=== PATIENT | male | born 1955 | race Caucasian/White ===

== ENCOUNTER 2017-03-27 11:26 | Emergency (ER) | payer BC ==
[2017-03-27 11:41] VITALS: RESP 18
[2017-03-27] MEDS ORDERED: ceFAZolin 1 gm in NS 1 GM/100 ML BAG IVPB STA (11:58)
[2017-03-27] MEDS ORDERED: Morphine 2 mg/ml ISec IVP STA (12:06)
--- NOTE | 2017-03-27 12:10 | ED PDOC ---
Arrival/HPI - General Chief Complaint: Abnormal Skin Integrity Time Seen by Provider: 03/27/17 11:57 Historian: Patient - History of Present Illness Narrative History of Present Illness (Text): 03/27/17 12:07 61-year-old male presents today with a laceration to the left second finger. Patient states while at home he was working with iron and a heavy piece of iron smash onto his left second finger causing a laceration and deformity to the left second finger. Patient states his tetanus was 4 years ago. He denies fevers or chills. States the incident occurred prior to arrival. He is complaining of pain in the left second finger. He is complaining of the inability to extend the finger. Patient states he sees bone. No medications have been taken for pain. No other complaints Time/Duration: Prior to Arrival Past Medical History - Provider Review Nursing Documentation Reviewed: Yes - Travel History Have you recently traveled outside [place] w/in the past 3 mons?: No - Tetanus Immunization Tetanus Immunization: Up to Date (4 yrs ago) - Cardiac Hx Hypertension: Yes - Psychiatric Hx Substance Use: No - Anesthesia Hx Anesthesia: No Hx Anesthesia Reactions: No Hx Malignant Hyperthermia: No Family/Social History - Physician Review Nursing Documentation Reviewed: Yes Family/Social History: Unknown Family HX Smoking Status: Never Smoked Hx Alcohol Use: Yes Frequency of alcohol use: Socially Hx Substance Use: No Allergies/Home Meds Allergies/Adverse Reactions: Allergies No Known Allergies Allergy (Verified 10/31/14 09:52) Home Medications: Home Meds Medication Instructions Recorded Confirmed Aspirin [Aspirin Chewable] 81 mg PO DAILY 03/01/16 03/27/17 Review of Systems - Review of Systems Constitutional: absent: Fatigue, Fevers Cardiovascular: absent: Chest Pain, Palpitations Gastrointestinal: absent: Abdominal Pain, Vomiting Musculoskeletal: Arthralgias Skin: Laceration Neurological: absent: Headache, Dizziness Physical Exam Vital Signs Reviewed: Yes Vital Signs Temp Pulse Resp BP Pulse Ox 03/27/17 11:27 97.9 F 66 18 122/78 97 Temperature: Afebrile Blood Pressure: Normal Pulse: Regular Respiratory Rate: Normal Appearance: Positive for: Well-Appearing, Non-Toxic, Comfortable Pain Distress: None Mental Status: Positive for: Alert and Oriented X 3 - Systems Exam Head: Present: Atraumatic Respiratory/Chest: Present: Clear to Auscultation Cardiovascular: Present: Regular Rate and Rhythm Upper Extremity: Present: NORMAL PULSES, Tenderness (left 2nd finger; there is a large gapping laceration with partial avulsion noted to the dorsal aspect of the finger at the proximal phalanx. the laceration extends to the PIP joint with complete exposure of the bone and joint. finger is in flexion at the PIP, unable to extend finger at the PIP. sensation and distal pulses intact. ), Swelling, Deformity. No: Normal ROM Neurological: Present: GCS=15 Skin: Present: Warm, Dry Psychiatric: Present: Alert, Oriented x 3 Medical Decision Making ED Course and Treatment: 03/27/17 12:12 61-year-old male with a laceration to the second finger on the left hand with extensor tendon injury Wound irrigated well with copious amounts of saline using high pressure irrigation Patient's tetanus is up-to-date. X-ray:FINDINGS: LEFT INDEX FINGER: Disruption and focal swelling consistent with laceration injury 2nd proximal interphalangeal joint -dorsal aspect. A 1.5 mm ossific like density in this focal soft tissue swelling suspect for tiny lacerated ossific chip fracture fragment. Probably originating near the radial side of this 2nd proximal interphalangeal joint. A radiopaque foreign body closely approximating bone density is in the differential. Metallic medial like foreign body dorsal 3rd digit soft tissues perhaps chronic given the current clinical history attention to the 2nd digit provided. No 3rd digit significant soft tissue swelling Osteoarthrosis-distal interphalangeal joints and 1st metacarpal phalangeal joint and 1st interphalangeal joint. JOINTS: Arthrosis. No dislocation SOFT TISSUES: Normal. OTHER FINDINGS: None. IMPRESSION: Extensive soft tissue laceration with tiny probable lacerated ossific chip fracture fragment origin probably radial 2nd proximal interphalangeal joint level -specific donor site difficult to determine. Foreign body similar to bony density in the differential here. No dislocation Third digit soft tissue foreign body -broken needle probable chronic appearing. Osteoarthrosis CBC wnl CMP k; 3.4 PT/PTT: wnl Type and screen 1 g of Ancef given IV Patient was seen and evaluated by Dr. Alexander case discussed with dr. Jasvir Lubin; he saw patient at bedside and repaired extension tendon injury. 03/27/17 15:17 pt to be discharged home with augmentin and percocet; pt to f/u with dr. lubin on saturday in the office. impression; finger laceration, fracture, finger, extensor tendon laceration, foreign body finger Percocet 1 tablet every 6 hours as needed for pain Augmentin 1 tablet twice daily 7 days Keep wound clean and dry Follow-up with Dr. Lubin in 2 days in the office Return immediately if signs of infection develop high fevers, increasing pain, increasing redness, increasing swelling, purulent discharge Return immediately if any other concerning symptoms develop - Lab Interpretations Lab Results: 03/27/17 12:18 03/27/17 12:18 Lab Results 03/27/17 13:20: Blood Type Confirm B NEGATIVE 03/27/17 12:27: Blood Type B NEGATIVE, Antibody Screen Negative, BBK History Checked No verified bt 03/27/17 12:18: WBC 3.5 L, RBC 4.41, Hgb 14.5, Hct 39.4 L, MCV 89.3, MCH 32.9, MCHC 36.8, RDW 13.0, Plt Count 182, MPV 10.2, Gran % 56.8, Lymph % (Auto) 34.4, [place] % (Auto) 7.4 H, Eos % (Auto) 1.1 L, Baso % (Auto) 0.3, Gran # 2.00, Lymph # 1.2, Arthur # 0.3, Eos # 0.0, Baso # 0.01 03/27/17 12:18: Sodium 142, Potassium 3.4 L, Chloride 102, Carbon Dioxide 28, Anion Gap 15, BUN 24 H, Creatinine 1.1, Est GFR ( Amer) > 60, Est GFR ( Non-Af Amer) > 60, Random Glucose 117 H, Calcium 9.5, Total Bilirubin 1.2, AST 71 H, ALT 79 H, Alkaline Phosphatase 65, Total Protein 8.1, Albumin 4.6, Globulin 3.5, Albumin/Globulin Ratio 1.3 03/27/17 12:18: PT 11.1, INR 1.03, APTT 25.9 - RAD Interpretation Radiology Orders: 03/27/17 11:57 HAND LEFT 2ND DIGIT (FINGER) [RAD] Stat - Medication Orders Current Medication Orders: Discontinued Medications Cefazolin Sodium (Ancef 1gm In Ns) 1 gm in 100 mls @ 100 mls/hr IVPB STAT STA PRN Reason: Protocol Stop: 03/27/17 12:57 Last Admin: 03/27/17 12:39 Dose: 100 mls/hr eMAR Start Stop Document 03/27/17 12:39 EQ (Rec: 03/27/17 12:39 EQ [id number]) Intravenous Solution Start Date 03/27/17 Start Time 12:39 Lidocaine HCl (Lidocaine 2% 20ml Vial) 0 ml IJ ONCE STA Stop: 03/27/17 14:56 Morphine Sulfate (Morphine) 2 mg IVP STAT STA Stop: 03/27/17 12:07 Last Admin: 03/27/17 12:38 Dose: 2 mg MAR Pain Assessment Document 03/27/17 12:38 EQ (Rec: 03/27/17 12:39 EQ [id number]) Pain Reassessment Is this a pain reassessment? No Sleep Is patient sleeping during reassessment? No Presence of Pain Presence of Pain Yes Pain Scale Used Pain Scale Used Numeric IVP Administration Document 03/27/17 12:38 EQ (Rec: 03/27/17 12:39 EQ [id number]) Charges for Administration # of IVP Administrations 1 Disposition/Present on Arrival - Present on Arrival Any Indicators Present on Arrival: No History of DVT/PE: No History of Uncontrolled Diabetes: No Urinary Catheter: No History of Decub. Ulcer: No History Surgical Site Infection Following: None - Disposition Have Diagnosis and Disposition been Completed?: Yes Diagnosis: Extensor tendon laceration, finger, open wound, Finger fracture, Foreign body finger Disposition: HOME/ ROUTINE Disposition Time: 15:46 Patient Plan: Discharge Patient Problems: Current Active Problems Problem Status Onset Extensor tendon laceration, finger, open wound Acute Finger fracture Acute Foreign body finger Acute Condition: GOOD Discharge Instructions (ExitCare): Finger Fracture (ED), Soft Tissue Foreign Body (ED), Finger Laceration (ED) Additional Instructions: Percocet 1 tablet every 6 hours as needed for pain Augmentin 1 tablet twice daily 7 days Keep wound clean and dry Follow-up with Dr. Lubin in 2 days in the office Return immediately if signs of infection develop high fevers, increasing pain, increasing redness, increasing swelling, purulent discharge Return immediately if any other concerning symptoms develop Prescriptions: Amoxicillin/Clavulanate [Augmentin 875 MG-125 MG] 1 tab PO BID #20 tab Ibuprofen [Motrin] 600 mg PO Q6H PRN #20 tab PRN Reason: pain/fever reduction oxyCODONE/Acetaminophen [Percocet 5/325 mg Tab] 1 tab PO Q6H PRN #10 tab PRN Reason: moderate to severe pain Referrals: Jasvir Lubin MD [Staff Provider] - Follow up with primary Forms: [employer] (Guyanese), WORK NOTE
[2017-03-27 12:24] LABS: BASO # 0.01 K/mm3 (0.0-2.0); BASO % 0.3 % (0.0-3.0); EOS % 1.1 % (1.5-5.0); GRAN % 56.8 % (50.0-68.0); HEMATOCRIT 39.4 % (42.0-52.0); LYMPH # 1.2 (1.2-3.4); LYMPH % 34.4 % (22.0-35.0); MEAN CELL VOLUME 89.3 fl (80.0-105.0); MEAN CORPUSCULAR HEMOGLOBIN 32.9 pg (25.0-35.0); MEAN CORPUSCULAR HGB CONC 36.8 g/dl (31.0-37.0); MEAN PLATELET VOLUME 10.2 fl (7.0-11.0); MONO # 0.3 (0.1-0.6); MONO % 7.4 % (1.0-6.0); WHITE BLOOD COUNT 3.5 10^3/ul (4.5-11.0)
[2017-03-27 12:38] LABS: ALB/GLOB RATIO 1.3 (1.1-1.8); ALKALINE PHOSPHATASE 65 U/L (38-126); ALT/SGPT 79 U/L (7-56); AST/SGOT 71 U/L (17-59); BILIRUBIN,TOTAL 1.2 mg/dL (0.2-1.3); BLOOD UREA NITROGEN 24 mg/dL (7-21); CALCIUM 9.5 mg/dL (8.4-10.5); CARBON DIOXIDE 28 mmol/L (21-33); CHLORIDE 102 mmol/L (95-110); GFR AFRICAN-AMERICAN > 60; GLUCOSE,RANDOM 117 mg/dL (70-110); POTASSIUM 3.4 mmol/L (3.6-5.0); SODIUM 142 mmol/L (132-148); TOTAL PROTEIN 8.1 g/dL (5.8-8.3)
[2017-03-27 12:39] LABS: INR 1.03 (0.93-1.08); PARTIAL THROMBOPLASTIN TIME 25.9 Seconds (23.7-30.8)
--- NOTE | 2017-03-27 13:04 | RAD ---
PROCEDURE: Left Index finger radiographs. HISTORY: laceration/2nd finger, laceration/crush injury COMPARISON: None. TECHNIQUE: AP radiograph of the left hand, as well as spot oblique and lateral images of index finger were obtained. FINDINGS: LEFT INDEX FINGER: Disruption and focal swelling consistent with laceration injury 2nd proximal interphalangeal joint -dorsal aspect. A 1.5 mm ossific like density in this focal soft tissue swelling suspect for tiny lacerated ossific chip fracture fragment. Probably originating near the radial side of this 2nd proximal interphalangeal joint. A radiopaque foreign body closely approximating bone density is in the differential. Metallic medial like foreign body dorsal 3rd digit soft tissues perhaps chronic given the current clinical history attention to the 2nd digit provided. No 3rd digit significant soft tissue swelling Osteoarthrosis-distal interphalangeal joints and 1st metacarpal phalangeal joint and 1st interphalangeal joint. JOINTS: Arthrosis. No dislocation SOFT TISSUES: Normal. OTHER FINDINGS: None. IMPRESSION: Extensive soft tissue laceration with tiny probable lacerated ossific chip fracture fragment origin probably radial 2nd proximal interphalangeal joint level -specific donor site difficult to determine. Foreign body similar to bony density in the differential here. No dislocation Third digit soft tissue foreign body -broken needle probable chronic appearing. Osteoarthrosis
[2017-03-27] MEDS ORDERED: Lidocaine 1%/Epinephrine 1:100000 30 ml vial IJ ONE (14:35)
[2017-03-27] MEDS ORDERED: Lidocaine 2% Inj (20ml) IJ STA ×4 (14:39→14:55)
[2017-03-27 16:08] VITALS: BP 130/72; PULSE 68; TEMP 97.8; O2SAT 98
== END 2017-03-27 16:08 | disposition home or self-care (01) ==
LOC: ED 11:26
DX: S66.321A Laceration of extensor muscle, fascia and tendon of left index finger at wrist and hand level, initial encounter (principal); S62.611A Displaced fracture of proximal phalanx of left index finger, initial encounter for closed fracture; W22.8XXA Striking against or struck by other objects, initial encounter; Y93.89 Activity, other specified; Y92.008 Other place in unspecified non-institutional (private) residence as the place of occurrence of the external cause; M79.5 Residual foreign body in soft tissue
CPT/HCPCS: 73140; 80053; 85025; 85610; 85730; 86850; 86900; 96374; 99283; J0690; J2270

== ENCOUNTER 2017-09-13 18:05 | Inpatient (IN) | payer BC ==
[2017-09-13 18:20] VITALS: BMI 36.6
[2017-09-13 18:34] LABS: BASO # 0.02 K/mm3 (0.0-2.0); BASO % 0.3 % (0.0-3.0); EOS # 0.1 (0.0-0.7); GRAN # 3.13 (1.4-6.5); GRAN % 42.5 % (50.0-68.0); LYMPH # 3.7 (1.2-3.4); LYMPH % 50.1 % (22.0-35.0); MEAN CORPUSCULAR HEMOGLOBIN 33.3 pg (25.0-35.0); MEAN CORPUSCULAR HGB CONC 36.6 g/dl (31.0-37.0); MEAN PLATELET VOLUME 10.5 fl (7.0-11.0); MONO # 0.5 (0.1-0.6); MONO % 6.1 % (1.0-6.0); RBC 4.8 10^6/uL (3.5-6.1); RED CELL DISTRIBUTION WIDTH 13.2 % (11.5-14.5); WHITE BLOOD COUNT 7.4 10^3/ul (4.5-11.0)
[2017-09-13 18:46] LABS: INR 1.05 (0.93-1.08); PARTIAL THROMBOPLASTIN TIME 30.9 Seconds (25.1-36.5)
[2017-09-13 18:47] LABS: ALB/GLOB RATIO 1.4 (1.1-1.8); ALBUMIN 4.5 g/dL (3.0-4.8); ALT/SGPT 64 U/L (7-56); AST/SGOT 55 U/L (17-59); BLOOD UREA NITROGEN 17 mg/dL (7-21); CALCIUM 9.6 mg/dL (8.4-10.5); GFR AFRICAN-AMERICAN > 60; GFR NON-AFRICAN AMERICAN > 60
[2017-09-13 18:59] LABS: B-TYPE NATRIURETIC PEPTIDE 107 pg/mL (0-450); TROPONIN I < 0.01 ng/mL
[2017-09-13] MEDS ORDERED: Morphine 2 mg/ml ISec IVP STA (19:15)
[2017-09-13] MEDS ORDERED: Alum-Mag Hydrox-Simethicone Susp (30 mL) PO STA (19:17)
[2017-09-13] MEDS ORDERED: Atrop/Hyosc/Scopal/PB Elixir (120 ml) PO STA (19:17)
[2017-09-13 19:20] LABS: CK-MB 4.4 ng/mL (0.0-3.6)
[2017-09-13] MEDS ORDERED: Iohexol 350 MG/100 ML VIAL ONE (19:21)
--- NOTE | 2017-09-13 20:44 | ED PDOC ---
Arrival/HPI - General Chief Complaint: Abdominal Pain Time Seen by Provider: 09/13/17 18:10 Historian: Patient, Family - History of Present Illness Narrative History of Present Illness (Text): 09/13/17 18:05 A 62 year old male, whose past medical history includes hypertension, presents to the emergency department complaining of epigastric/chest pain. Patient reports he began experiencing symptoms after aruging with . States being in normal states of health prior to arguing. Patient denies any fever, cough, or any other complaints at this time. Also, it is unknown of any past cardiac workup. No PMD Past Medical History - Provider Review Nursing Documentation Reviewed: Yes - Tetanus Immunization Tetanus Immunization: Up to Date (4 yrs ago) - Cardiac Hx Hypertension: Yes - Pulmonary Hx Respiratory Disorders: No - Neurological Hx Neurological Disorder: No - HEENT Hx HEENT Disorder: No - Renal Hx Renal Disorder: No - Endocrine/Metabolic Hx Endocrine Disorders: No - Hematological/Oncological Hx Blood Disorders: No - Integumentary Hx Dermatological Disorder: No - Musculoskeletal/Rheumatological Hx Musculoskeletal Disorders: No - Gastrointestinal Hx Gastrointestinal Disorders: No - Genitourinary/Gynecological Hx Genitourinary Disorders: No - Psychiatric Hx Psychophysiologic Disorder: No Hx Substance Use: No - Anesthesia Hx Anesthesia: No Hx Anesthesia Reactions: No Hx Malignant Hyperthermia: No Family/Social History - Physician Review Nursing Documentation Reviewed: Yes Family/Social History: No Known Family HX Smoking Status: Never Smoked Hx Alcohol Use: Yes Hx Substance Use: No Allergies/Home Meds Allergies/Adverse Reactions: Allergies No Known Allergies Allergy (Verified 09/13/17 18:08) Home Medications: Home Meds Medication Instructions Recorded Confirmed Aspirin [Aspirin Chewable] 81 mg PO DAILY 03/01/16 09/13/17 Metoprolol Succinate [Toprol XL] 0 mg PO DAILY 09/13/17 09/13/17 Review of Systems - Physician Review All systems were reviewed & negative as marked: Yes - Review of Systems Constitutional: absent: Fevers Respiratory: absent: Cough Cardiovascular: Chest Pain Gastrointestinal: Abdominal Pain (epigastric) Physical Exam Vital Signs Reviewed: Yes Vital Signs Temp Pulse Resp BP Pulse Ox 09/13/17 22:23 71 186/108 H 09/13/17 22:11 81 20 182/107 H 95 09/13/17 21:56 72 187/102 H 09/13/17 21:55 70 18 176/111 H 95 09/13/17 21:37 72 20 191/105 H 97 09/13/17 21:28 71 213/115 H 09/13/17 21:22 63 20 211/110 H 99 09/13/17 21:13 74 211/11 H 09/13/17 21:05 56 L 20 204/105 H 98 09/13/17 18:45 73 20 136/73 09/13/17 18:33 74 19 166/97 H 93 L 09/13/17 18:05 98.3 F 66 18 193/99 H 95 Temperature: Afebrile Blood Pressure: Hypertensive Pulse: Regular Respiratory Rate: Normal Appearance: Positive for: Well-Appearing Pain Distress: None Mental Status: Positive for: Alert and Oriented X 3 - Systems Exam Head: Present: Atraumatic, Normocephalic Pupils: Present: PERRL Extroacular Muscles: Present: EOMI Conjunctiva: Present: Normal Mouth: Present: Moist Mucous Membranes Neck: Present: Normal Range of Motion Respiratory/Chest: Present: Clear to Auscultation, Good Air Exchange. No: Respiratory Distress, Accessory Muscle Use Cardiovascular: Present: Regular Rate and Rhythm, Normal S1, S2. No: Murmurs Abdomen: Present: Normal Bowel Sounds. No: Tenderness, Distention, Peritoneal Signs Back: Present: Normal Inspection Upper Extremity: Present: Normal Inspection. No: Cyanosis, Edema Lower Extremity: Present: Normal Inspection. No: Edema Neurological: Present: GCS=15, CN II-XII Intact, Speech Normal Skin: Present: Warm, Dry, Normal Color. No: Rashes Psychiatric: Present: Alert, Oriented x 3, Normal Insight, Normal Concentration Medical Decision Making ED Course and Treatment: 09/13/17 18:10 Impression: 62 year old male with epigastric/chest pain. Physical exam is unremarkable. Plan: -- EKG -- Chest X-ray -- Angio Disection CT -- Aspirin -- Morphine -- Nitroglycerin -- Elixir -- Maalox -- Urinalysis -- Reassess and disposition Progress Notes: EKG: Ordered, reviewed, and independently interpreted the EKG. Rate : 70 BPM Rhythm : NSR Interpretation : 1st degree AV Block, LVH, and T-wave inversions, PVCs. Comparison : No previous EKG for comparison. 09/13/2017 20:[address] IMPRESSION: 1. 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 It appears to extend into the right common and external iliac arteries and appears to terminate near the right superior femoral artery origin. 2. 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 This infarction involves approximately 20% of the right kidney Dictator: Den Granda MD 09/13/17 21:[address] results, ICU was called. Blood pressure medications ordered intravenously. Dr. Hicks currently at bedside and will accept patient to unit. Case discussed with Dr. Harding, whom will admit patient under her service in ICU. - Critical Care Critical Care Minutes: 45 minutes - Lab Interpretations Lab Results: 09/13/17 18:10 09/13/17 18:10 Lab Results 09/13/17 21:14: Blood Type Pending, Antibody Screen Pending, BBK History Checked Patient has bt 09/13/17 18:10: Alcohol, Quantitative 77 H 09/13/17 18:10: Lipase 112 09/13/17 18:10: PT 12.0, INR 1.05, APTT 30.9 09/13/17 18:10: Sodium 144, Potassium 3.4 L, Chloride 104, Carbon Dioxide 24, Anion Gap 19, BUN 17, Creatinine 1.2, Est GFR ( Amer) > 60, Est GFR (Non- Af Amer) > 60, Random Glucose 107, Calcium 9.6, Magnesium 2.1, Total Bilirubin 0.6, AST 55, ALT 64 H, Alkaline Phosphatase 99, Lactate Dehydrogenase 828 H, Total Creatine Kinase 346 H, CK-MB (CK-2) 4.4 H, CK-MB (CK-2) % Cancelled, Troponin I < 0.01, NT-Pro-B Natriuret Pep 107, Total Protein 7.7, Albumin 4.5, Globulin 3.2, Albumin/Globulin Ratio 1.4 09/13/17 18:10: WBC 7.4 D, RBC 4.80, Hgb 16.0, Hct 43.7, MCV 91.0, MCH 33.3, MCHC 36.6, RDW 13.2, Plt Count 171, MPV 10.5, Gran % 42.5 L, Lymph % (Auto) 50.1 H, [place] % (Auto) 6.1 H, Eos % (Auto) 1.0 L, Baso % (Auto) 0.3, Gran # 3.13 , Lymph # (Auto) 3.7 H, [place] # (Auto) 0.5, Eos # (Auto) 0.1, Baso # (Auto) 0.02 I have reviewed the lab results: Yes - RAD Interpretation Radiology Orders: 09/13/17 18:10 CHEST PORTABLE [RAD] Stat 09/13/17 19:16 ANGIOGRAPHY DISECTION PROTOCOL [CT] Stat - Medication Orders Current Medication Orders: Hydromorphone HCl (Dilaudid) 2 mg IVP Q3H PRN PRN Reason: Pain, moderate (4-7) Sodium Nitroprusside 50 mg/ (Dextrose) 252 mls @ 15.08 mls/hr IV .[id number] PRN; Protocol; 0.5 MCG/KG/MIN PRN Reason: TITRATE PER MD ORDER Last Admin: 09/13/17 22:23 Dose: 15.08 mls/hr eMAR Start Stop Document 09/13/17 22:23 SS (Rec: 09/13/17 22:24 SS [id number]) Intravenous Solution Start Date 09/13/17 Start Time 22:24 MAR Pulse and Blood Pressure Document 09/13/17 22:23 SS (Rec: 09/13/17 22:24 SS [id number]) Pulse Pulse Rate (60-90) 71 Blood Pressure Blood Pressure (100/60-150/90) 186/108 Esmolol HCl (Brevibloc) 250 mls @ 29.937 mls/hr IV .[id number] RICKY; 50 MCG/KG/MIN PRN Reason: Protocol Last Admin: 09/13/17 21:56 Dose: 29.937 mls/hr eMAR Start Stop Document 09/13/17 21:56 SS (Rec: 09/13/17 21:58 SS [id number]) Intravenous Solution Start Date 09/13/17 Start Time 21:56 MAR Pulse and Blood Pressure Document 09/13/17 21:56 SS (Rec: 09/13/17 21:58 SS [id number]) Pulse Pulse Rate (60-90) 72 Blood Pressure Blood Pressure (100/60-150/90) 187/102 Pantoprazole Sodium (Protonix Inj) 40 mg IVP DAILY RICKY Discontinued Medications Al Hydrox/Mg Hydrox/Simethicone (Maalox Plus 30 Ml) 30 ml PO STAT STA Stop: 09/13/17 19:18 Last Admin: 09/13/17 19:52 Dose: 30 ml Aspirin (Aspirin) 325 mg PO STAT STA Stop: 09/13/17 18:23 Last Admin: 09/13/17 18:28 Dose: 325 mg Belladonna/Phenobarbital ( Elixir) 5 ml PO STAT STA Stop: 09/13/17 19:18 Last Admin: 09/13/17 19:52 Dose: 5 ml Hydromorphone HCl (Dilaudid) 2 mg IVP STAT STA Stop: 09/13/17 21:25 Last Admin: 09/13/17 21:28 Dose: 2 mg MAR Pain Assessment Document 09/13/17 21:28 SS (Rec: 09/13/17 21:30 SS [id number]) Pain Reassessment Is this a pain reassessment? Yes Sleep Is patient sleeping during reassessment? No Presence of Pain Presence of Pain Yes Pain Scale Used Pain Scale Used Numeric Location Left, Right or Bilateral Right Pain Location Body Site Abdomen Description Description Constant Intensity of Pain at present 10 IVP Administration Document 09/13/17 21:28 SS (Rec: 09/13/17 21:30 SS [id number]) Charges for Administration # of IVP Administrations 1 Labetalol HCl (Trandate) 20 mg IV STAT STA Stop: 09/13/17 21:14 Last Admin: 09/13/17 21:13 Dose: 20 mg eMAR Start Stop Document 09/13/17 21:13 SS (Rec: 09/13/17 21:31 SS [id number]) Intravenous Solution Start Date 09/13/17 Start Time 21:13 End Date 09/13/17 End time 21:15 Total Infusion Time 2 MAR Pulse and Blood Pressure Document 09/13/17 21:13 SS (Rec: 09/13/17 21:31 SS [id number]) Pulse Pulse Rate (60-90) 74 Blood Pressure Blood Pressure (100/60-150/90) 211/11 Labetalol HCl (Trandate) 20 mg IV STAT STA Stop: 09/13/17 21:17 Last Admin: 09/13/17 21:28 Dose: 20 mg eMAR Start Stop Document 09/13/17 21:28 SS (Rec: 09/13/17 21:32 SS [id number]) Intravenous Solution Start Date 09/13/17 Start Time 21:28 End Date 09/13/17 End time 21:30 Total Infusion Time 2 MAR Pulse and Blood Pressure Document 09/13/17 21:28 SS (Rec: 09/13/17 21:32 SS [id number]) Pulse Pulse Rate (60-90) 71 Blood Pressure Blood Pressure (100/60-150/90) 213/115 Morphine Sulfate (Morphine) 2 mg IVP STAT STA Stop: 09/13/17 19:16 Last Admin: 09/13/17 19:27 Dose: 2 mg MAR Pain Assessment Document 09/13/17 19:27 SS (Rec: 09/13/17 19:29 SS [id number]) Pain Reassessment Is this a pain reassessment? Yes Sleep Is patient sleeping during reassessment? No Presence of Pain Presence of Pain Yes Pain Scale Used Pain Scale Used Numeric Location Pain Location Body Site Chest Description Description Constant Intensity of Pain at present 10 Pain Behavior Moaning Crying Irritability Rubbing Site Restlessness Facial Grimacing Screaming Thrashing IVP Administration Document 09/13/17 19:27 SS (Rec: 09/13/17 19:29 SS [id number]) Charges for Administration # of IVP Administrations 1 Morphine Sulfate (Morphine) 4 mg IVP STAT STA Stop: 09/13/17 21:09 Last Admin: 09/13/17 21:08 Dose: 4 mg MAR Pain Assessment Document 09/13/17 21:08 SS (Rec: 09/13/17 21:34 SS [id number]) Pain Reassessment Is this a pain reassessment? Yes Sleep Is patient sleeping during reassessment? No Presence of Pain Presence of Pain Yes Pain Scale Used Pain Scale Used Numeric Location Left, Right or Bilateral Right Pain Location Body Site Abdomen Description Description Constant Intensity of Pain at present 10 IVP Administration Document 09/13/17 21:08 SS (Rec: 09/13/17 21:34 SS [id number]) Charges for Administration # of IVP Administrations 1 Nitroglycerin (Nitrostat Sl Tab) 0.3 mg SL STAT STA Stop: 09/13/17 18:23 Last Admin: 09/13/17 18:28 Dose: 0.3 mg - Scribe Statement The provider has reviewed the documentation as recorded by the Philip Flores Provider Philip Attestation: All medical record entries made by the Philip were at my direction and personally dictated by me. I have reviewed the chart and agree that the record accurately reflects my personal performance of the history, physical exam, medical decision making, and the department course for this patient. I have also personally directed, reviewed, and agree with the discharge instructions and disposition. Disposition/Present on Arrival - Present on Arrival Any Indicators Present on Arrival: No History of DVT/PE: No History of Uncontrolled Diabetes: No Urinary Catheter: No History of Decub. Ulcer: No History Surgical Site Infection Following: None - Disposition Have Diagnosis and Disposition been Completed?: Yes Diagnosis: Aortic dissection Disposition Time: 21:20 Condition: GUARDED
[2017-09-13] MEDS ORDERED: Labetalol 5 mg/ml Inj 20ML ONE (21:06)
[2017-09-13] MEDS ORDERED: Morphine 4 mg/ml ISec IVP STA (21:08)
[2017-09-13] MEDS ORDERED: Morphine 4 mg/ml ISec ONE (21:08)
[2017-09-13] MEDS ORDERED: Labetalol 5 mg/ml Inj 20ML IV STA ×2 (21:13→21:16)
[2017-09-13] MEDS ORDERED: Labetalol 500 MG in Sodium Chloride 0.9% 400 ML IV PRN (21:13)
[2017-09-13] MEDS ORDERED: HYDROmorphone 2 mg/ml ISec IVP STA (21:24)
[2017-09-13] MEDS ORDERED: Esmolol Hcl 2500mg/250ml NAC 250 ML IV SCH (21:45)
--- NOTE | 2017-09-13 21:45 | CP.PCM.CON ---
<Bev Bocanegra - Last Filed: 09/13/17 23:24> History of Present Illness - History of Present Illness History of Present Illness: CC: chest pain HPI: 62M PMHx HTN and nephrolithiasis presents to ED complaining of chest pain that started at 6:00pm the evening of admission. Patient was eating and arguing with his when his chest pain began. He described it as a sharp/stabbing pain, 10/10 in intensity, starting in his epigastric region radiating to his back. Patient also experienced dyspnea at rest but denied any headaches, pain radiating up his jaw, and pain radiating in his arms. Patient had never experienced this pain before. He did not take anything to alleviate the pain and could not identify any exacerbating factors. Patient reported he is compliant with all his medications but could not recall if he took his beta kendal the day of admission. On arriving to the ED patient complained of nausea and had 1 episode of nonbloody nonbilious emesis. On complete ROS patient denied fever, chills, dizziness, blurry vision, palpitations, cough, bowel/bladder complaints, pain/swelling in his legs bilaterally. Denied any recent changes in medication, recent travel, and sick contacts. PMHx: HTN and nephrolithiasis PSurgHx: denies Meds: pls see chart ALL: NKDA SocHx: denies Tobacco and recreational drug use. Drinks EtOH socially. 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 FamHx: mother, father, and siblings with heart problems and history of [place] [ patient unable to specify] PMD: doesn't know name- last saw PMD 1 month ago for general check up Review of Systems - Review of Systems All systems: reviewed and no additional remarkable complaints except - Constitutional Constitutional: As Per HPI. absent: Chills, Fever - EENT Eyes: As Per HPI. absent: Blurred Vision Ears: As Per HPI. absent: Dizziness Nose/Mouth/Throat: As Per HPI. absent: Sore Throat - Cardiovascular Cardiovascular: As Per HPI, Chest Pain, Dyspnea. absent: Edema, Lightheadedness , Palpitations, Pedal Edema - Respiratory Respiratory: As Per HPI, Dyspnea. absent: Cough, Wheezing - Gastrointestinal Gastrointestinal: As Per HPI, Abdominal Pain, Nausea, Vomiting (x 1 nonbloody nonbilious). absent: Constipation, Diarrhea - Genitourinary Genitourinary: As Per HPI. absent: Dysuria, Hematuria, Pyuria - Musculoskeletal Musculoskeletal: As Per HPI, Back Pain. absent: Numbness, Tingling - Integumentary Integumentary: As Per HPI. absent: Dry Skin - Neurological Neurological: As Per HPI. absent: Dizziness, Numbness, Headaches, Tingling - Psychiatric Psychiatric: As Per HPI. absent: Anxiety - Endocrine Endocrine: As Per HPI. absent: Polydipsia, Polyphagia - Hematologic/Lymphatic Hematologic: As Per HPI. absent: Easy Bleeding, Easy Bruising, Lymphadenopathy Past Patient History - Tetanus Immunizations Tetanus Immunization: Up to Date (4 yrs ago) - Past Social History Smoking Status: Never Smoked - CARDIAC Hx Hypertension: Yes - PULMONARY Hx Respiratory Disorders: No - NEUROLOGICAL Hx Neurological Disorder: No - HEENT Hx HEENT Problems: No - RENAL Hx Chronic Kidney Disease: No - ENDOCRINE/METABOLIC Hx Endocrine Disorders: No - HEMATOLOGICAL/ONCOLOGICAL Hx Blood Disorders: No - INTEGUMENTARY Hx Dermatological Problems: No - MUSCULOSKELETAL/RHEUMATOLOGICAL Hx Musculoskeletal Disorders: No - GASTROINTESTINAL Hx Gastrointestinal Disorders: No - GENITOURINARY/GYNECOLOGICAL Hx Genitourinary Disorders: No - PSYCHIATRIC Hx Psychophysiologic Disorder: No Hx Substance Use: No - SURGICAL HISTORY Hx Surgeries: No - ANESTHESIA Hx Anesthesia: No Hx Anesthesia Reactions: No Hx Malignant Hyperthermia: No Meds Allergies/Adverse Reactions: Allergies Allergy/AdvReac Type Severity Reaction Status Date / Time No Known Allergies Allergy Verified 09/13/17 18:08 - Medications Medications: Current Medications Hydromorphone HCl (Dilaudid) 2 mg IVP Q3H PRN PRN Reason: Pain, moderate (4-7) Sodium Nitroprusside 50 mg/ (Dextrose) 252 mls @ 15.08 mls/hr IV .[id number] PRN; Protocol; 0.5 MCG/KG/MIN PRN Reason: TITRATE PER MD ORDER Esmolol HCl (Brevibloc) 250 mls @ 29.937 mls/hr IV .[id number] RICKY; 50 MCG/KG/MIN PRN Reason: Protocol Pantoprazole Sodium (Protonix Inj) 40 mg IVP DAILY RICKY Physical Exam - Constitutional Appears: In Acute Distress - Head Exam Head Exam: ATRAUMATIC, NORMAL INSPECTION, NORMOCEPHALIC - Eye Exam Eye Exam: EOMI, Normal appearance, PERRL. absent: Conjunctival injection, Scleral icterus Pupil Exam: NORMAL ACCOMODATION, PERRL - ENT Exam ENT Exam: Mucous Membranes Moist - Neck Exam Neck exam: Positive for: Full Rom, Normal Inspection. Negative for: Lymphadenopathy - Respiratory Exam Respiratory Exam: Clear to Auscultation Bilateral, NORMAL BREATHING PATTERN. absent: Accessory Muscle Use, Rales, Rhonchi, Wheezes, Respiratory Distress - Cardiovascular Exam Cardiovascular Exam: Bradycardia, REGULAR RHYTHM, +S1, +S2 - GI/Abdominal Exam GI & Abdominal Exam: Hyperactive Bowel Sounds, Soft. absent: Firm, Guarding, Pulsatile Mass, Rebound, Rigid, Tenderness - Rectal Exam Rectal Exam: Deferred - Extremities Exam Extremities exam: Positive for: normal capillary refill, normal inspection, pedal pulses present. Negative for: pedal edema, tenderness - Back Exam Back exam: NORMAL INSPECTION. absent: rash noted - Neurological Exam Neurological exam: Alert, CN II-XII Intact, Oriented x3 - Psychiatric Exam Psychiatric exam: Normal Affect, Normal Mood - Skin Skin Exam: Dry, Intact, Normal Color, Warm Results - Vital Signs Recent Vital Signs: Last Vital Signs Temp 98.3 F 09/13/17 18:05 Pulse 72 09/13/17 21:37 Resp 20 09/13/17 21:37 BP 191/105 H 09/13/17 21:37 Pulse Ox 97 09/13/17 21:37 - Labs Result Diagrams: 09/13/17 18:10 09/13/17 18:10 Labs: Laboratory Results - last 24 hr 09/13/17 09/13/17 09/13/17 18:10 18:10 18:10 WBC 7.4 D RBC 4.80 Hgb 16.0 Hct 43.7 MCV 91.0 MCH 33.3 MCHC 36.6 RDW 13.2 Plt Count 171 MPV 10.5 Gran % 42.5 L Lymph % (Auto) 50.1 H Mills % (Auto) 6.1 H Eos % (Auto) 1.0 L Baso % (Auto) 0.3 Gran # 3.13 Lymph # (Auto) 3.7 H [place] # (Auto) 0.5 Eos # (Auto) 0.1 Baso # (Auto) 0.02 PT 12.0 INR 1.05 APTT 30.9 Sodium 144 Potassium 3.4 L Chloride 104 Carbon Dioxide 24 Anion Gap 19 BUN 17 Creatinine 1.2 Est GFR ( Amer) > 60 Est GFR (Non-Af Amer) > 60 Random Glucose 107 Calcium 9.6 Magnesium 2.1 Total Bilirubin 0.6 AST 55 ALT 64 H Alkaline Phosphatase 99 Lactate Dehydrogenase 828 H Total Creatine Kinase 346 H CK-MB (CK-2) 4.4 H CK-MB (CK-2) % Cancelled Troponin I < 0.01 NT-Pro-B Natriuret Pep 107 Total Protein 7.7 Albumin 4.5 Globulin 3.2 Albumin/Globulin Ratio 1.4 Lipase Alcohol, Quantitative 09/13/17 09/13/17 18:10 18:10 WBC RBC Hgb Hct MCV MCH MCHC RDW Plt Count MPV Gran % Lymph % (Auto) [place] % (Auto) Eos % (Auto) Baso % (Auto) Gran # Lymph # (Auto) [place] # (Auto) Eos # (Auto) Baso # (Auto) PT INR APTT Sodium Potassium Chloride Carbon Dioxide Anion Gap BUN Creatinine Est GFR ( Amer) Est GFR (Non-Af Amer) Random Glucose Calcium Magnesium Total Bilirubin AST ALT Alkaline Phosphatase Lactate Dehydrogenase Total Creatine Kinase CK-MB (CK-2) CK-MB (CK-2) % Troponin I NT-Pro-B Natriuret Pep Total Protein Albumin Globulin Albumin/Globulin Ratio Lipase 112 Alcohol, Quantitative 77 H Assessment & Plan - Assessment and Plan (Free Text) Assessment: 62M PMHx HTN and nephrolithiasis presents to ED complaining of chest pain that started at 6:00pm the evening of admission. STAT CTA chest in the ED showed [place] type B aortic dissection. Patient transferred to MICU for further monitoring. 1) Aortic Dissection [place]okes[place] type B 2) HTN emergency Plan: - Patient started on nitroprusside gtt and esmolol gtt for BP control. - Strict BP control. Maintain SBP 100-120mmHg and HR 60-80bpm - Pain management with Dilaudid 2mg ivp q3 prn - troponin negative x 1 f/u trop x 2 - f/u Echo - f/u AM labs including CBC, CMP, Mg, Phos, Lipid panel, HgbA1c, Thyroid studies - Accucheck q6h - NPO - Insert melendez and monitor strict Is and Os - HoB above 30 degrees - Vital signs [id number] - Cardiology consult: Dr. Millan - Vascular surgery consult: Dr. Ruiz - GI ppx: Protonix 40mg ivp qd - VTE ppx: SCDs Discussed with Dr. Fabiola Bocanegra PGY2 <Fabiola MOHAN,Justino - Last Filed: 09/14/17 06:15> Meds - Medications Medications: Current Medications Hydromorphone HCl (Dilaudid) 2 mg IVP Q3H PRN PRN Reason: Pain, moderate (4-7) Last Admin: 09/14/17 03:42 Dose: 2 mg Labetalol HCl 500 mg/ Sodium (Chloride) 500 mls @ 30 mls/hr IV .[id number] PRN; Protocol; 0.5 MG/MIN PRN Reason: TITRATE PER MD ORDER Last Admin: 09/14/17 04:02 Dose: 0.5 mg/min, 30 mls/hr Ondansetron HCl (Zofran Inj) 4 mg IVP Q6H PRN PRN Reason: Nausea/Vomiting Last Admin: 09/14/17 03:45 Dose: 4 mg Pantoprazole Sodium (Protonix Inj) 40 mg IVP DAILY RICKY Results - Vital Signs Recent Vital Signs: Last Vital Signs Temp 98.7 F 09/13/17 23:16 Pulse 71 09/14/17 04:00 Resp 14 09/14/17 04:00 BP 185/89 H 09/14/17 03:45 Pulse Ox 99 09/14/17 01:00 - Labs Result Diagrams: 09/14/17 05:15 09/13/17 18:10 Labs: Laboratory Results - last 24 hr 09/13/17 09/13/17 09/13/17 22:01 22:02 22:27 WBC RBC Hgb Hct MCV MCH MCHC RDW Plt Count MPV Gran % Lymph % (Auto) Mills % (Auto) Eos % (Auto) Baso % (Auto) Gran # Lymph # (Auto) [place] # (Auto) Eos # (Auto) Baso # (Auto) Lactic Acid 2.0 Troponin I Urine Color Yellow Urine Appearance Clear Urine pH 7.0 Ur Specific [place] 1.020 Urine Protein >=300 H Urine Glucose (UA) Negative Urine Ketones Negative Urine Blood Small H Urine Nitrate Negative Urine Bilirubin Negative Urine Urobilinogen 0.2 Ur Leukocyte Esterase Negative Urine RBC 2 - 5 Urine WBC 0 - 2 Ur Epithelial Cells 0 - 2 Urine Bacteria Few Urine Opiates Screen Positive H Urine Methadone Screen Negative Ur Barbiturates Screen Negative Ur Phencyclidine Scrn Negative Ur Amphetamines Screen Negative U Benzodiazepines Scrn Negative U Oth Cocaine Metabols Negative U Cannabinoids Screen Negative 09/14/17 09/14/17 00:30 05:15 WBC 7.2 RBC 4.40 Hgb 14.2 Hct 40.4 L MCV 91.8 MCH 32.3 MCHC 35.1 RDW 13.5 Plt Count 128 MPV 10.1 Gran % 88.8 H Lymph % (Auto) 7.7 L [place] % (Auto) 3.5 Eos % (Auto) 0.0 L Baso % (Auto) 0.0 Gran # 6.38 Lymph # (Auto) 0.6 L [place] # (Auto) 0.3 Eos # (Auto) 0.0 Baso # (Auto) 0.00 Lactic Acid Troponin I < 0.01 Urine Color Urine Appearance Urine pH Ur Specific [place] Urine Protein Urine Glucose (UA) Urine Ketones Urine Blood Urine Nitrate Urine Bilirubin Urine Urobilinogen Ur Leukocyte Esterase Urine RBC Urine WBC Ur Epithelial Cells Urine Bacteria Urine Opiates Screen Urine Methadone Screen Ur Barbiturates Screen Ur Phencyclidine Scrn Ur Amphetamines Screen U Benzodiazepines Scrn U Oth Cocaine Metabols U Cannabinoids Screen Attending/Attestation - Attestation I have personally seen and examined this patient.: Yes I have fully participated in the care of the patient.: Yes I have reviewed all pertinent clinical information: Yes Notes (Text): -I agree with the above ICU consult note completed by the resident physician with the following additions and/or changes: -The patient is a 62 year old man with a history of HTN and nephrolithiasis who is being admitted to the ICU with hypertensive emergency and a [place] Type B aortic dissection (confirmed by stat CT-angio done in the ED). Because his initial response to IV Labetalol (given in ED) was suboptimal, his BP will be controlled overnight using both Esmolol and Nitroprusside drips (with Q15min vitals checks). Goal SBP will be less than 120 and goal heart rate less than 60. Serial trops and EKGs, 2D-echo, TFTs, HgA1c and a lipid panel have all been ordered. Cardiology and vascular surgery have been consulted as well. Patient will also likely warrant a hypercoagulable work-up. Pain will be tightly controlled using IV Dilaudid PRN. Critical Care Time Spent: 90-120minutes
[2017-09-13 22:10] LABS: URINE BILIRUBIN NEGATIVE (NEGATIVE); URINE BLOOD SMALL (NEGATIVE); URINE GLUCOSE (UA) NEGATIVE (NEGATIVE); URINE LEUKOCYTE ESTERASE NEGATIVE Leu/uL (NEGATIVE); URINE PROTEIN >=300 mg/dL (<30 mg/dL); URINE UROBILINOGEN 0.2 E.U./dL (<1 E.U./dL)
[2017-09-13 22:13] LABS: URINE APPEARANCE CLEAR (CLEAR); URINE COLOR YELLOW (YELLOW)
[2017-09-13 22:20] LABS: URINE BACTERIA FEW (NEG); URINE EPITHELIAL CELLS 0 - 2 /hpf (0-5); URINE WBC 0 - 2 /hpf (0-6)
[2017-09-13 22:35] LABS: BARBITURATES, UR NEGATIVE (NEGATIVE); BENZODIAZEPINES, UR NEGATIVE (NEGATIVE); OPIATES, UR POSITIVE (NEGATIVE); PHENCYCLIDINE, UR NEGATIVE (NEGATIVE)
[2017-09-14] MEDS ORDERED: HYDROmorphone 2 mg/ml ISec IVP PRN (00:30)
[2017-09-14] MEDS: Labetalol 500 MG in Sodium Chloride 0.9% 400 ML IV PRN ×5 (03:30→23:16)
[2017-09-14] MEDS: HYDROmorphone 1 mg/ml ISec IVP PRN ×2 (03:42→08:29)
[2017-09-14 05:54] LABS: GRAN # 6.38 (1.4-6.5); GRAN % 88.8 % (50.0-68.0); HEMOGLOBIN 14.2 g/dL (14.0-18.0); LYMPH # 0.6 (1.2-3.4); LYMPH % 7.7 % (22.0-35.0); MEAN CELL VOLUME 91.8 fl (80.0-105.0); MEAN CORPUSCULAR HEMOGLOBIN 32.3 pg (25.0-35.0); MEAN CORPUSCULAR HGB CONC 35.1 g/dl (31.0-37.0); MEAN PLATELET VOLUME 10.1 fl (7.0-11.0); MONO # 0.3 (0.1-0.6); MONO % 3.5 % (1.0-6.0); RBC 4.4 10^6/uL (3.5-6.1); RED CELL DISTRIBUTION WIDTH 13.5 % (11.5-14.5); WHITE BLOOD COUNT 7.2 10^3/ul (4.5-11.0)
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
[2017-09-14 06:29] LABS: TROPONIN I 0.02 ng/mL
[2017-09-14 06:31] LABS: ALB/GLOB RATIO 1.3 (1.1-1.8); ALBUMIN 4.3 g/dL (3.0-4.8); ALT/SGPT 59 U/L (7-56); AST/SGOT 65 U/L (17-59); BLOOD UREA NITROGEN 21 mg/dL (7-21); CALCIUM 9.5 mg/dL (8.4-10.5); GFR AFRICAN-AMERICAN > 60; GFR NON-AFRICAN AMERICAN > 60
[2017-09-14 06:34] LABS: T4 6.7 ug/dL (5.5-11.0)
--- NOTE | 2017-09-14 08:34 | CT ---
PROCEDURE: CT Angiography Chest, Abdomen and Pelvis with and without intravenous contrast HISTORY: r/o dissection COMPARISON: None. TECHNIQUE: Contiguous axial images of the chest, abdomen and pelvis were obtained in the phase of aortic enhancement. A noncontrast enhanced CT of the chest was also obtained to evaluate for possible intramural thrombus. Coronal and sagittal reformats were generated. IV dose administered: 100 mL of Omnipaque 350 intravenously Radiation dose: Total exam DLP = 3027.16 mGy-cm. This CT exam was performed using one or more of the following dose reduction techniques: Automated exposure control, adjustment of the mA and/or kV according to patient size, and/or use of iterative reconstruction technique. FINDINGS: CT ANGIOGRAPHY OF THE CHEST WITH & WITHOUT CONTRAST: AORTA (CHEST AND ABDOMEN): There is [place] type B aortic dissection originate at the aortic arch just distal to the origin of the left subclavian artery. The aortic dissection extending in the descending thoracic aorta and in the entire abdominal aorta and extending to the right common iliac and right external iliac arteries and terminates near the right superficial femoral artery origin. The right brachiocephalic left common carotid and left subclavian arteries are patent and opacified with contrast. Ernie the celiac trunk and the SMA are originates from the true lumen. There is extension of the artery dissection shortly in the right renal artery associated with infarction at the right kidney involving the mid and lateral superior portion of the right kidney. The left kidney enhance homogeneously. The FRED originates from the false lumen however the FRED is opacified with contrast. The left common iliac and external iliac arteries are patent and opacified with contrast.. LUNGS: Clear. No nodule, mass or consolidation. MEDIASTINUM: Unremarkable. Normal caliber aorta and pulmonary arterial trunk. No aortic dissection. The heart is mildly enlarged. LYMPH NODES: Unremarkable. PLEURA: Unremarkable. No pneumothorax. No pleural fluid. BONES: Unremarkable. OTHER FINDINGS: None. CT ANGIOGRAPHY OF THE ABDOMEN AND PELVIS WITH CONTRAST: LIVER: Unremarkable. No gross lesion or ductal dilatation. GALLBLADDER AND BILE DUCTS: Unremarkable. PANCREAS: Unremarkable. No gross lesion or ductal dilatation. SPLEEN: Unremarkable. ADRENALS: Unremarkable. No mass. KIDNEYS AND URETERS: There is infarction involving the superior and lateral right kidney. Approximately 20 percent of the right kidney is infarcted. VASCULATURE: Abdominal aortic dissection as described above. The IVC is normal in caliber. No evidence of aneurysm STOMACH AND BOWEL: Unremarkable. No obstruction. No gross mural thickening. APPENDIX: Normal appendix. PERITONEUM: Unremarkable. No free fluid. No free air. LYMPH NODES: Unremarkable. No enlarged lymph nodes. BLADDER: Unremarkable. REPRODUCTIVE: The prostate is mildly enlarged. BONES: No acute fracture. OTHER FINDINGS: None. IMPRESSION: [place] type B aortic dissection extending from the aortic arch just distal to the left subclavian artery origin and involves the entire aorta. The aortic dissection is also extending to the right common iliac right as well as the external iliac and appears to terminate near the right superficial femoral artery origin. Approximately 20 percent of the right kidney is infarcted which appears acute. No evidence of acute pathology in the lungs. No CT evidence of colitis or enteritis. Preliminary report was submitted by [facility].
--- NOTE | 2017-09-14 08:37 | RAD ---
HISTORY: chest pain COMPARISON: No prior. FINDINGS: LUNGS: No active pulmonary disease. PLEURA: No significant pleural effusion identified, no pneumothorax apparent. CARDIOVASCULAR: Normal. OSSEOUS STRUCTURES: No significant abnormalities. VISUALIZED UPPER ABDOMEN: Normal. OTHER FINDINGS: None. IMPRESSION: No evidence of acute pulmonary disease.
--- NOTE | 2017-09-14 10:36 | CARD ---
APPROVED REPORT EKG Measurement Heart [id number] [place] [id number] <Conclusion> Sinus rhythm with 1st degree AV block with frequent premature ventricular complexes Left ventricular hypertrophy with repolarization abnormality Inferior infarct, age undetermined STTW changes c/w ischemia
--- NOTE | 2017-09-14 10:47 | CARD ---
APPROVED REPORT EKG Measurement Heart [id number] MD [id number] <Conclusion> Sinus rhythm with 1st degree AV block with frequent premature ventricular complexes Inferior infarct, age undetermined ST & T wave abnormality, consider lateral ischemia No change
--- NOTE | 2017-09-14 11:45 | CP.CCUPN ---
<Adan Flowers - Last Filed: 09/14/17 11:40> CCU Subjective - Physician Review Subjective (Free Text): Patient seen and examined at bedside. Patient states he is hungry, no chest pain currently. Denies chest pain, shortness of breath, nausea, vomiting, diarrhea, fever, chills. CCU Objective - Vital Signs / Intake & Output Vital Signs (Last 4 hours): Vital Signs Pulse Resp BP Pulse Ox 09/14/17 11:15 75 15 142/85 92 L 09/14/17 11:00 72 18 152/85 H 90 L 09/14/17 10:45 77 19 137/75 91 L 09/14/17 10:30 72 25 H 136/77 92 L 09/14/17 10:15 73 22 143/54 L 92 L 09/14/17 10:00 76 23 135/63 90 L 09/14/17 09:45 70 134/81 93 L 09/14/17 09:30 72 24 95 09/14/17 09:29 72 18 125/63 94 L 09/14/17 09:15 78 30 H 137/75 09/14/17 09:00 70 17 137/75 90 L 09/14/17 08:45 69 15 126/66 89 L 09/14/17 08:30 67 15 145/79 09/14/17 08:15 69 17 147/81 09/14/17 08:00 69 16 141/78 09/14/17 07:45 70 13 156/87 H Intake and Output (Last 8hrs): Intake & Output 09/13/17 09/14/17 09/14/17 22:59 06:59 14:59 Intake Total 947.5 642.5 Output Total 900 Balance 47.5 642.5 Weight 228 lb 3.2 oz 228 lb 3.2 oz Intake: IV 847.5 642.5 Right Antecubital 750 Oral 100 Output: Urine 600 Urine, Voided 600 Emesis 300 - Physical Exam Head: Positive for: Atraumatic, Normocephalic Pupils: Positive for: PERRL Extroacular Muscles: Positive for: EOMI Conjunctiva: Positive for: Normal Mouth: Positive for: Moist Mucous Membranes Neck: Positive for: Normal Range of Motion Respiratory/Chest: Positive for: Clear to Auscultation, Good Air Exchange. Negative for: Respiratory Distress, Accessory Muscle Use Cardiovascular: Positive for: Regular Rate and Rhythm, Normal S1, S2. Negative for: Murmurs Abdomen: Positive for: Normal Bowel Sounds, Peritoneal Signs. Negative for: Tenderness, Distention Back: Positive for: Normal Inspection Upper Extremity: Positive for: Normal Inspection. Negative for: Cyanosis, Edema Lower Extremity: Positive for: Normal Inspection. Negative for: Edema Neurological: Positive for: GCS=15, CN II-XII Intact, Speech Normal Skin: Positive for: Warm, Dry, Normal Color. Negative for: Rashes Psychiatric: Positive for: Alert, Oriented x 3, Normal Insight, Normal Concentration - Medications Active Medications: Active Medications Generic Name Dose Route Start Last Admin Trade Name Freq PRN Reason Stop Dose Admin Hydromorphone HCl 2 mg 09/14/17 03:37 09/14/17 08:29 Dilaudid IVP 2 mg Q3H PRN Administration Pain, moderate (4-7) Labetalol HCl 500 mg/ Sodium 500 mls @ 30 mls/hr 09/14/17 01:54 09/14/17 11: 09 Chloride IV 2.5 mg/min .[id number] PRN 150 mls/hr TITRATE PER MD ORDER Titration Protocol 0.5 MG/MIN Ondansetron HCl 4 mg 09/14/17 00:57 09/14/17 03:45 Zofran Inj IVP 4 mg Q6H PRN Administration Nausea/Vomiting Pantoprazole Sodium 40 mg 09/14/17 10:00 09/14/17 10:13 Protonix Inj IVP 40 mg DAILY RICKY Administration - Patient Studies Lab Studies: Lab Studies 09/14/17 09/14/17 09/14/17 Range/Units 11:20 05:15 05:15 WBC 7.2 (4.5-11.0) 10^3/ul RBC 4.40 (3.5-6.1) 10^6/uL Hgb 14.2 (14.0-18.0) g/dL Hct 40.4 L (42.0-52.0) % MCV 91.8 (80.0-105.0) fl MCH 32.3 (25.0-35.0) pg MCHC 35.1 (31.0-37.0) g/dl RDW 13.5 (11.5-14.5) % Plt Count 128 (120.0-450.0) 10^3/uL MPV 10.1 (7.0-11.0) fl Gran % 88.8 H (50.0-68.0) % Lymph % (Auto) 7.7 L (22.0-35.0) % [place] % (Auto) 3.5 (1.0-6.0) % Eos % (Auto) 0.0 L (1.5-5.0) % Baso % (Auto) 0.0 (0.0-3.0) % Gran # 6.38 (1.4-6.5) Lymph # (Auto) 0.6 L (1.2-3.4) [place] # (Auto) 0.3 (0.1-0.6) Eos # (Auto) 0.0 (0.0-0.7) Baso # (Auto) 0.00 (0.0-2.0) K/mm3 Sodium 140 (132-148) mmol/L Potassium 3.7 (3.6-5.0) mmol/L Chloride 101 (98-107) mmol/L Carbon Dioxide 25 (21-33) mmol/L Anion Gap 17 (10-20) BUN 21 (7-21) mg/dL Creatinine 1.2 (0.8-1.5) mg/dl Est GFR ( Amer) > 60 Est GFR (Non-Af Amer) > 60 POC Glucose (mg/dL) 114 H (65-110) mg/dL Random Glucose 169 H (70-110) mg/dL Lactic Acid (0.7-2.1) mmol/L Calcium 9.5 (8.4-10.5) mg/dL Phosphorus 3.5 (2.5-4.5) mg/dL Magnesium 2.0 (1.7-2.2) mg/dL Total Bilirubin 1.1 (0.2-1.3) mg/dL AST 65 H (17-59) U/L ALT 59 H (7-56) U/L Alkaline Phosphatase 56 (38-126) U/L Troponin I 0.02 D ng/mL Total Protein 7.7 (5.8-8.3) g/dL Albumin 4.3 (3.0-4.8) g/dL Globulin 3.4 gm/dL Albumin/Globulin Ratio 1.3 (1.1-1.8) Thyroxine (T4) (5.5-11.0) ug/dL TSH 3rd Generation (0.46-4.68) mIU/mL Urine Color (YELLOW) Urine Appearance (CLEAR) Urine pH (4.7-8.0) Ur Specific Alfred (1.005-1.035) Urine Protein (<30 mg/dL) mg/dL Urine Glucose (UA) (NEGATIVE) mg/dL Urine Ketones (NEGATIVE) mg/dL Urine Blood (NEGATIVE) Urine Nitrate (NEGATIVE) Urine Bilirubin (NEGATIVE) Urine Urobilinogen (<1 E.U./dL) E.U./dL Ur Leukocyte Esterase (NEGATIVE) Tim/uL Urine RBC (0-2) /hpf Urine WBC (0-6) /hpf Ur Epithelial Cells (0-5) /hpf Urine Bacteria (NEG) Urine Opiates Screen (NEGATIVE) Urine Methadone Screen (NEGATIVE) Ur Barbiturates Screen (NEGATIVE) Ur Phencyclidine Scrn (NEGATIVE) Ur Amphetamines Screen (NEGATIVE) U Benzodiazepines Scrn (NEGATIVE) U Oth Cocaine Metabols (NEGATIVE) U Cannabinoids Screen (NEGATIVE) 09/14/17 09/14/17 09/13/17 Range/Units 05:15 00:30 22:27 WBC (4.5-11.0) 10^3/ul RBC (3.5-6.1) 10^6/uL Hgb (14.0-18.0) g/dL Hct (42.0-52.0) % MCV (80.0-105.0) fl MCH (25.0-35.0) pg MCHC (31.0-37.0) g/dl RDW (11.5-14.5) % Plt Count (120.0-450.0) 10^3/uL MPV (7.0-11.0) fl Gran % (50.0-68.0) % Lymph % (Auto) (22.0-35.0) % [place] % (Auto) (1.0-6.0) % Eos % (Auto) (1.5-5.0) % Baso % (Auto) (0.0-3.0) % Gran # (1.4-6.5) Lymph # (Auto) (1.2-3.4) [place] # (Auto) (0.1-0.6) Eos # (Auto) (0.0-0.7) Baso # (Auto) (0.0-2.0) K/mm3 Sodium (132-148) mmol/L Potassium (3.6-5.0) mmol/L Chloride (98-107) mmol/L Carbon Dioxide (21-33) mmol/L Anion Gap (10-20) BUN (7-21) mg/dL Creatinine (0.8-1.5) mg/dl Est GFR ( Amer) Est GFR (Non-Af Amer) POC Glucose (mg/dL) (65-110) mg/dL Random Glucose (70-110) mg/dL Lactic Acid 2.0 (0.7-2.1) mmol/L Calcium (8.4-10.5) mg/dL Phosphorus (2.5-4.5) mg/dL Magnesium (1.7-2.2) mg/dL Total Bilirubin (0.2-1.3) mg/dL AST (17-59) U/L ALT (7-56) U/L Alkaline Phosphatase (38-126) U/L Troponin I < 0.01 ng/mL Total Protein (5.8-8.3) g/dL Albumin (3.0-4.8) g/dL Globulin gm/dL Albumin/Globulin Ratio (1.1-1.8) Thyroxine (T4) 6.7 (5.5-11.0) ug/dL TSH 3rd Generation 1.18 (0.46-4.68) mIU/mL Urine Color (YELLOW) Urine Appearance (CLEAR) Urine pH (4.7-8.0) Ur Specific Alfred (1.005-1.035) Urine Protein (<30 mg/dL) mg/dL Urine Glucose (UA) (NEGATIVE) mg/dL Urine Ketones (NEGATIVE) mg/dL Urine Blood (NEGATIVE) Urine Nitrate (NEGATIVE) Urine Bilirubin (NEGATIVE) Urine Urobilinogen (<1 E.U./dL) E.U./dL Ur Leukocyte Esterase (NEGATIVE) Tim/uL Urine RBC (0-2) /hpf Urine WBC (0-6) /hpf Ur Epithelial Cells (0-5) /hpf Urine Bacteria (NEG) Urine Opiates Screen (NEGATIVE) Urine Methadone Screen (NEGATIVE) Ur Barbiturates Screen (NEGATIVE) Ur Phencyclidine Scrn (NEGATIVE) Ur Amphetamines Screen (NEGATIVE) U Benzodiazepines Scrn (NEGATIVE) U Oth Cocaine Metabols (NEGATIVE) U Cannabinoids Screen (NEGATIVE) 09/13/17 09/13/17 Range/Units 22:02 22:01 WBC (4.5-11.0) 10^3/ul RBC (3.5-6.1) 10^6/uL Hgb (14.0-18.0) g/dL Hct (42.0-52.0) % MCV (80.0-105.0) fl MCH (25.0-35.0) pg MCHC (31.0-37.0) g/dl RDW (11.5-14.5) % Plt Count (120.0-450.0) 10^3/uL MPV (7.0-11.0) fl Gran % (50.0-68.0) % Lymph % (Auto) (22.0-35.0) % [place] % (Auto) (1.0-6.0) % Eos % (Auto) (1.5-5.0) % Baso % (Auto) (0.0-3.0) % Gran # (1.4-6.5) Lymph # (Auto) (1.2-3.4) [place] # (Auto) (0.1-0.6) Eos # (Auto) (0.0-0.7) Baso # (Auto) (0.0-2.0) K/mm3 Sodium (132-148) mmol/L Potassium (3.6-5.0) mmol/L Chloride (98-107) mmol/L Carbon Dioxide (21-33) mmol/L Anion Gap (10-20) BUN (7-21) mg/dL Creatinine (0.8-1.5) mg/dl Est GFR ( Amer) Est GFR (Non-Af Amer) POC Glucose (mg/dL) (65-110) mg/dL Random Glucose (70-110) mg/dL Lactic Acid (0.7-2.1) mmol/L Calcium (8.4-10.5) mg/dL Phosphorus (2.5-4.5) mg/dL Magnesium (1.7-2.2) mg/dL Total Bilirubin (0.2-1.3) mg/dL AST (17-59) U/L ALT (7-56) U/L Alkaline Phosphatase (38-126) U/L Troponin I ng/mL Total Protein (5.8-8.3) g/dL Albumin (3.0-4.8) g/dL Globulin gm/dL Albumin/Globulin Ratio (1.1-1.8) Thyroxine (T4) (5.5-11.0) ug/dL TSH 3rd Generation (0.46-4.68) mIU/mL Urine Color Yellow (YELLOW) Urine Appearance Clear (CLEAR) Urine pH 7.0 (4.7-8.0) Ur Specific Alfred 1.020 (1.005-1.035) Urine Protein >=300 H (<30 mg/dL) mg/dL Urine Glucose (UA) Negative (NEGATIVE) mg/dL Urine Ketones Negative (NEGATIVE) mg/dL Urine Blood Small H (NEGATIVE) Urine Nitrate Negative (NEGATIVE) Urine Bilirubin Negative (NEGATIVE) Urine Urobilinogen 0.2 (<1 E.U./dL) E.U./dL Ur Leukocyte Esterase Negative (NEGATIVE) Tim/uL Urine RBC 2 - 5 (0-2) /hpf Urine WBC 0 - 2 (0-6) /hpf Ur Epithelial Cells 0 - 2 (0-5) /hpf Urine Bacteria Few (NEG) Urine Opiates Screen Positive H (NEGATIVE) Urine Methadone Screen Negative (NEGATIVE) Ur Barbiturates Screen Negative (NEGATIVE) Ur Phencyclidine Scrn Negative (NEGATIVE) Ur Amphetamines Screen Negative (NEGATIVE) U Benzodiazepines Scrn Negative (NEGATIVE) U Oth Cocaine Metabols Negative (NEGATIVE) U Cannabinoids Screen Negative (NEGATIVE) Laboratory Results - last 24 hr 09/13/17 09/13/17 09/13/17 22:01 22:02 22:27 WBC RBC Hgb Hct MCV MCH MCHC RDW Plt Count MPV Gran % Lymph % (Auto) [place] % (Auto) Eos % (Auto) Baso % (Auto) Gran # Lymph # (Auto) [place] # (Auto) Eos # (Auto) Baso # (Auto) Sodium Potassium Chloride Carbon Dioxide Anion Gap BUN Creatinine Est GFR ( Amer) Est GFR (Non-Af Amer) POC Glucose (mg/dL) Random Glucose Lactic Acid 2.0 Calcium Phosphorus Magnesium Total Bilirubin AST ALT Alkaline Phosphatase Troponin I Total Protein Albumin Globulin Albumin/Globulin Ratio Thyroxine (T4) TSH 3rd Generation Urine Color Yellow Urine Appearance Clear Urine pH 7.0 Ur Specific Alfred 1.020 Urine Protein >=300 H Urine Glucose (UA) Negative Urine Ketones Negative Urine Blood Small H Urine Nitrate Negative Urine Bilirubin Negative Urine Urobilinogen 0.2 Ur Leukocyte Esterase Negative Urine RBC 2 - 5 Urine WBC 0 - 2 Ur Epithelial Cells 0 - 2 Urine Bacteria Few Urine Opiates Screen Positive H Urine Methadone Screen Negative Ur Barbiturates Screen Negative Ur Phencyclidine Scrn Negative Ur Amphetamines Screen Negative U Benzodiazepines Scrn Negative U Oth Cocaine Metabols Negative U Cannabinoids Screen Negative 09/14/17 09/14/17 09/14/17 00:30 05:15 05:15 WBC 7.2 RBC 4.40 Hgb 14.2 Hct 40.4 L MCV 91.8 MCH 32.3 MCHC 35.1 RDW 13.5 Plt Count 128 MPV 10.1 Gran % 88.8 H Lymph % (Auto) 7.7 L [place] % (Auto) 3.5 Eos % (Auto) 0.0 L Baso % (Auto) 0.0 Gran # 6.38 Lymph # (Auto) 0.6 L [place] # (Auto) 0.3 Eos # (Auto) 0.0 Baso # (Auto) 0.00 Sodium Potassium Chloride Carbon Dioxide Anion Gap BUN Creatinine Est GFR ( Amer) Est GFR (Non-Af Amer) POC Glucose (mg/dL) Random Glucose Lactic Acid Calcium Phosphorus Magnesium Total Bilirubin AST ALT Alkaline Phosphatase Troponin I < 0.01 Total Protein Albumin Globulin Albumin/Globulin Ratio Thyroxine (T4) 6.7 TSH 3rd Generation 1.18 Urine Color Urine Appearance Urine pH Ur Specific Alfred Urine Protein Urine Glucose (UA) Urine Ketones Urine Blood Urine Nitrate Urine Bilirubin Urine Urobilinogen Ur Leukocyte Esterase Urine RBC Urine WBC Ur Epithelial Cells Urine Bacteria Urine Opiates Screen Urine Methadone Screen Ur Barbiturates Screen Ur Phencyclidine Scrn Ur Amphetamines Screen U Benzodiazepines Scrn U Oth Cocaine Metabols U Cannabinoids Screen 09/14/17 09/14/17 05:15 11:20 WBC RBC Hgb Hct MCV MCH MCHC RDW Plt Count MPV Gran % Lymph % (Auto) [place] % (Auto) Eos % (Auto) Baso % (Auto) Gran # Lymph # (Auto) [place] # (Auto) Eos # (Auto) Baso # (Auto) Sodium 140 Potassium 3.7 Chloride 101 Carbon Dioxide 25 Anion Gap 17 BUN 21 Creatinine 1.2 Est GFR ( Amer) > 60 Est GFR (Non-Af Amer) > 60 POC Glucose (mg/dL) 114 H Random Glucose 169 H Lactic Acid Calcium 9.5 Phosphorus 3.5 Magnesium 2.0 Total Bilirubin 1.1 AST 65 H ALT 59 H Alkaline Phosphatase 56 Troponin I 0.02 D Total Protein 7.7 Albumin 4.3 Globulin 3.4 Albumin/Globulin Ratio 1.3 Thyroxine (T4) TSH 3rd Generation Urine Color Urine Appearance Urine pH Ur Specific Alfred Urine Protein Urine Glucose (UA) Urine Ketones Urine Blood Urine Nitrate Urine Bilirubin Urine Urobilinogen Ur Leukocyte Esterase Urine RBC Urine WBC Ur Epithelial Cells Urine Bacteria Urine Opiates Screen Urine Methadone Screen Ur Barbiturates Screen Ur Phencyclidine Scrn Ur Amphetamines Screen U Benzodiazepines Scrn U Oth Cocaine Metabols U Cannabinoids Screen EKG/Cardiology Studies: Cardiology / EKG Studies 09/14/17 08:42 ELECTROCARDIOGRAM Routine Comment: Reason For Exam: CP 09/14/17 08:54 ELECTROCARDIOGRAM Routine Comment: Reason For Exam: Fingerstick Blood Sugar Results: 169 Assessment/Plan - Assessment and Plan (Free Text) Plan: 62M PMHx HTN and nephrolithiasis presents with aortic dissection, pfeiffer type B. Currently awaiting further Vascular surgery recommendations. Will continue to maintain tight blood pressure control and monitor for any signs of worsening. Neuro: AAOx3 No deficits Cardio: Hemodynamically stable Maintain SBP <140 Echo ordered Continue Labetalol drip Cardiology consulted Cardiovascular surgery consulted Pulm: Maintain O2 sat >90% GI: Protonix NPO Endo: Maintain euglycemia Nephro: Maintain euvolemia Replenish electrolytes as needed Heme/ID: Afebrile, no leukocytosis Maintain normothermia Lionel PGY-2 <Genaro Pollard - Last Filed: 09/14/17 12:05> CCU Objective - Vital Signs / Intake & Output Vital Signs (Last 4 hours): Vital Signs Pulse Resp BP Pulse Ox 09/14/17 11:15 75 15 142/85 92 L 09/14/17 11:00 72 18 152/85 H 90 L 09/14/17 10:45 77 19 137/75 91 L 09/14/17 10:30 72 25 H 136/77 92 L 09/14/17 10:15 73 22 143/54 L 92 L 09/14/17 10:00 76 23 135/63 90 L 09/14/17 09:45 70 134/81 93 L 09/14/17 09:30 72 24 95 09/14/17 09:29 72 18 125/63 94 L 09/14/17 09:15 78 30 H 137/75 09/14/17 09:00 70 17 137/75 90 L 09/14/17 08:45 69 15 126/66 89 L 09/14/17 08:30 67 15 145/79 09/14/17 08:15 69 17 147/81 Intake and Output (Last 8hrs): Intake & Output 09/13/17 09/14/17 09/14/17 22:59 06:59 14:59 Intake Total 947.5 642.5 Output Total 900 Balance 47.5 642.5 Weight 228 lb 3.2 oz 228 lb 3.2 oz Intake: IV 847.5 642.5 Right Antecubital 750 Oral 100 Output: Urine 600 Urine, Voided 600 Emesis 300 - Medications Active Medications: Active Medications Generic Name Dose Route Start Last Admin Trade Name Freq PRN Reason Stop Dose Admin Hydromorphone HCl 2 mg 09/14/17 03:37 09/14/17 08:29 Dilaudid IVP 2 mg Q3H PRN Administration Pain, moderate (4-7) Labetalol HCl 500 mg/ Sodium 500 mls @ 30 mls/hr 09/14/17 01:54 09/14/17 11: 09 Chloride IV 2.5 mg/min .[id number] PRN 150 mls/hr TITRATE PER MD ORDER Titration Protocol 0.5 MG/MIN Ondansetron HCl 4 mg 09/14/17 00:57 09/14/17 03:45 Zofran Inj IVP 4 mg Q6H PRN Administration Nausea/Vomiting Pantoprazole Sodium 40 mg 09/14/17 10:00 09/14/17 10:13 Protonix Inj IVP 40 mg DAILY RICKY Administration - Patient Studies Lab Studies: Lab Studies 09/14/17 09/14/17 09/14/17 Range/Units 11:20 05:15 05:15 WBC 7.2 (4.5-11.0) 10^3/ul RBC 4.40 (3.5-6.1) 10^6/uL Hgb 14.2 (14.0-18.0) g/dL Hct 40.4 L (42.0-52.0) % MCV 91.8 (80.0-105.0) fl MCH 32.3 (25.0-35.0) pg MCHC 35.1 (31.0-37.0) g/dl RDW 13.5 (11.5-14.5) % Plt Count 128 (120.0-450.0) 10^3/uL MPV 10.1 (7.0-11.0) fl Gran % 88.8 H (50.0-68.0) % Lymph % (Auto) 7.7 L (22.0-35.0) % [place] % (Auto) 3.5 (1.0-6.0) % Eos % (Auto) 0.0 L (1.5-5.0) % Baso % (Auto) 0.0 (0.0-3.0) % Gran # 6.38 (1.4-6.5) Lymph # (Auto) 0.6 L (1.2-3.4) [place] # (Auto) 0.3 (0.1-0.6) Eos # (Auto) 0.0 (0.0-0.7) Baso # (Auto) 0.00 (0.0-2.0) K/mm3 Sodium 140 (132-148) mmol/L Potassium 3.7 (3.6-5.0) mmol/L Chloride 101 (98-107) mmol/L Carbon Dioxide 25 (21-33) mmol/L Anion Gap 17 (10-20) BUN 21 (7-21) mg/dL Creatinine 1.2 (0.8-1.5) mg/dl Est GFR ( Amer) > 60 Est GFR (Non-Af Amer) > 60 POC Glucose (mg/dL) 114 H (65-110) mg/dL Random Glucose 169 H (70-110) mg/dL Lactic Acid (0.7-2.1) mmol/L Calcium 9.5 (8.4-10.5) mg/dL Phosphorus 3.5 (2.5-4.5) mg/dL Magnesium 2.0 (1.7-2.2) mg/dL Total Bilirubin 1.1 (0.2-1.3) mg/dL AST 65 H (17-59) U/L ALT 59 H (7-56) U/L Alkaline Phosphatase 56 (38-126) U/L Troponin I 0.02 D ng/mL Total Protein 7.7 (5.8-8.3) g/dL Albumin 4.3 (3.0-4.8) g/dL Globulin 3.4 gm/dL Albumin/Globulin Ratio 1.3 (1.1-1.8) Thyroxine (T4) (5.5-11.0) ug/dL TSH 3rd Generation (0.46-4.68) mIU/mL Urine Color (YELLOW) Urine Appearance (CLEAR) Urine pH (4.7-8.0) Ur Specific Alfred (1.005-1.035) Urine Protein (<30 mg/dL) mg/dL Urine Glucose (UA) (NEGATIVE) mg/dL Urine Ketones (NEGATIVE) mg/dL Urine Blood (NEGATIVE) Urine Nitrate (NEGATIVE) Urine Bilirubin (NEGATIVE) Urine Urobilinogen (<1 E.U./dL) E.U./dL Ur Leukocyte Esterase (NEGATIVE) Tim/uL Urine RBC (0-2) /hpf Urine WBC (0-6) /hpf Ur Epithelial Cells (0-5) /hpf Urine Bacteria (NEG) Urine Opiates Screen (NEGATIVE) Urine Methadone Screen (NEGATIVE) Ur Barbiturates Screen (NEGATIVE) Ur Phencyclidine Scrn (NEGATIVE) Ur Amphetamines Screen (NEGATIVE) U Benzodiazepines Scrn (NEGATIVE) U Oth Cocaine Metabols (NEGATIVE) U Cannabinoids Screen (NEGATIVE) 09/14/17 09/14/17 09/13/17 Range/Units 05:15 00:30 22:27 WBC (4.5-11.0) 10^3/ul RBC (3.5-6.1) 10^6/uL Hgb (14.0-18.0) g/dL Hct (42.0-52.0) % MCV (80.0-105.0) fl MCH (25.0-35.0) pg MCHC (31.0-37.0) g/dl RDW (11.5-14.5) % Plt Count (120.0-450.0) 10^3/uL MPV (7.0-11.0) fl Gran % (50.0-68.0) % Lymph % (Auto) (22.0-35.0) % [place] % (Auto) (1.0-6.0) % Eos % (Auto) (1.5-5.0) % Baso % (Auto) (0.0-3.0) % Gran # (1.4-6.5) Lymph # (Auto) (1.2-3.4) [place] # (Auto) (0.1-0.6) Eos # (Auto) (0.0-0.7) Baso # (Auto) (0.0-2.0) K/mm3 Sodium (132-148) mmol/L Potassium (3.6-5.0) mmol/L Chloride (98-107) mmol/L Carbon Dioxide (21-33) mmol/L Anion Gap (10-20) BUN (7-21) mg/dL Creatinine (0.8-1.5) mg/dl Est GFR ( Amer) Est GFR (Non-Af Amer) POC Glucose (mg/dL) (65-110) mg/dL Random Glucose (70-110) mg/dL Lactic Acid 2.0 (0.7-2.1) mmol/L Calcium (8.4-10.5) mg/dL Phosphorus (2.5-4.5) mg/dL Magnesium (1.7-2.2) mg/dL Total Bilirubin (0.2-1.3) mg/dL AST (17-59) U/L ALT (7-56) U/L Alkaline Phosphatase (38-126) U/L Troponin I < 0.01 ng/mL Total Protein (5.8-8.3) g/dL Albumin (3.0-4.8) g/dL Globulin gm/dL Albumin/Globulin Ratio (1.1-1.8) Thyroxine (T4) 6.7 (5.5-11.0) ug/dL TSH 3rd Generation 1.18 (0.46-4.68) mIU/mL Urine Color (YELLOW) Urine Appearance (CLEAR) Urine pH (4.7-8.0) Ur Specific Alfred (1.005-1.035) Urine Protein (<30 mg/dL) mg/dL Urine Glucose (UA) (NEGATIVE) mg/dL Urine Ketones (NEGATIVE) mg/dL Urine Blood (NEGATIVE) Urine Nitrate (NEGATIVE) Urine Bilirubin (NEGATIVE) Urine Urobilinogen (<1 E.U./dL) E.U./dL Ur Leukocyte Esterase (NEGATIVE) Tim/uL Urine RBC (0-2) /hpf Urine WBC (0-6) /hpf Ur Epithelial Cells (0-5) /hpf Urine Bacteria (NEG) Urine Opiates Screen (NEGATIVE) Urine Methadone Screen (NEGATIVE) Ur Barbiturates Screen (NEGATIVE) Ur Phencyclidine Scrn (NEGATIVE) Ur Amphetamines Screen (NEGATIVE) U Benzodiazepines Scrn (NEGATIVE) U Oth Cocaine Metabols (NEGATIVE) U Cannabinoids Screen (NEGATIVE) 09/13/17 09/13/17 Range/Units 22:02 22:01 WBC (4.5-11.0) 10^3/ul RBC (3.5-6.1) 10^6/uL Hgb (14.0-18.0) g/dL Hct (42.0-52.0) % MCV (80.0-105.0) fl MCH (25.0-35.0) pg MCHC (31.0-37.0) g/dl RDW (11.5-14.5) % Plt Count (120.0-450.0) 10^3/uL MPV (7.0-11.0) fl Gran % (50.0-68.0) % Lymph % (Auto) (22.0-35.0) % [place] % (Auto) (1.0-6.0) % Eos % (Auto) (1.5-5.0) % Baso % (Auto) (0.0-3.0) % Gran # (1.4-6.5) Lymph # (Auto) (1.2-3.4) [place] # (Auto) (0.1-0.6) Eos # (Auto) (0.0-0.7) Baso # (Auto) (0.0-2.0) K/mm3 Sodium (132-148) mmol/L Potassium (3.6-5.0) mmol/L Chloride (98-107) mmol/L Carbon Dioxide (21-33) mmol/L Anion Gap (10-20) BUN (7-21) mg/dL Creatinine (0.8-1.5) mg/dl Est GFR ( Amer) Est GFR (Non-Af Amer) POC Glucose (mg/dL) (65-110) mg/dL Random Glucose (70-110) mg/dL Lactic Acid (0.7-2.1) mmol/L Calcium (8.4-10.5) mg/dL Phosphorus (2.5-4.5) mg/dL Magnesium (1.7-2.2) mg/dL Total Bilirubin (0.2-1.3) mg/dL AST (17-59) U/L ALT (7-56) U/L Alkaline Phosphatase (38-126) U/L Troponin I ng/mL Total Protein (5.8-8.3) g/dL Albumin (3.0-4.8) g/dL Globulin gm/dL Albumin/Globulin Ratio (1.1-1.8) Thyroxine (T4) (5.5-11.0) ug/dL TSH 3rd Generation (0.46-4.68) mIU/mL Urine Color Yellow (YELLOW) Urine Appearance Clear (CLEAR) Urine pH 7.0 (4.7-8.0) Ur Specific Alfred 1.020 (1.005-1.035) Urine Protein >=300 H (<30 mg/dL) mg/dL Urine Glucose (UA) Negative (NEGATIVE) mg/dL Urine Ketones Negative (NEGATIVE) mg/dL Urine Blood Small H (NEGATIVE) Urine Nitrate Negative (NEGATIVE) Urine Bilirubin Negative (NEGATIVE) Urine Urobilinogen 0.2 (<1 E.U./dL) E.U./dL Ur Leukocyte Esterase Negative (NEGATIVE) Tim/uL Urine RBC 2 - 5 (0-2) /hpf Urine WBC 0 - 2 (0-6) /hpf Ur Epithelial Cells 0 - 2 (0-5) /hpf Urine Bacteria Few (NEG) Urine Opiates Screen Positive H (NEGATIVE) Urine Methadone Screen Negative (NEGATIVE) Ur Barbiturates Screen Negative (NEGATIVE) Ur Phencyclidine Scrn Negative (NEGATIVE) Ur Amphetamines Screen Negative (NEGATIVE) U Benzodiazepines Scrn Negative (NEGATIVE) U Oth Cocaine Metabols Negative (NEGATIVE) U Cannabinoids Screen Negative (NEGATIVE) Laboratory Results - last 24 hr 09/13/17 09/13/17 09/13/17 22:01 22:02 22:27 WBC RBC Hgb Hct MCV MCH MCHC RDW Plt Count MPV Gran % Lymph % (Auto) [place] % (Auto) Eos % (Auto) Baso % (Auto) Gran # Lymph # (Auto) [place] # (Auto) Eos # (Auto) Baso # (Auto) Sodium Potassium Chloride Carbon Dioxide Anion Gap BUN Creatinine Est GFR ( Amer) Est GFR (Non-Af Amer) POC Glucose (mg/dL) Random Glucose Lactic Acid 2.0 Calcium Phosphorus Magnesium Total Bilirubin AST ALT Alkaline Phosphatase Troponin I Total Protein Albumin Globulin Albumin/Globulin Ratio Thyroxine (T4) TSH 3rd Generation Urine Color Yellow Urine Appearance Clear Urine pH 7.0 Ur Specific Alfred 1.020 Urine Protein >=300 H Urine Glucose (UA) Negative Urine Ketones Negative Urine Blood Small H Urine Nitrate Negative Urine Bilirubin Negative Urine Urobilinogen 0.2 Ur Leukocyte Esterase Negative Urine RBC 2 - 5 Urine WBC 0 - 2 Ur Epithelial Cells 0 - 2 Urine Bacteria Few Urine Opiates Screen Positive H Urine Methadone Screen Negative Ur Barbiturates Screen Negative Ur Phencyclidine Scrn Negative Ur Amphetamines Screen Negative U Benzodiazepines Scrn Negative U Oth Cocaine Metabols Negative U Cannabinoids Screen Negative 09/14/17 09/14/17 09/14/17 00:30 05:15 05:15 WBC 7.2 RBC 4.40 Hgb 14.2 Hct 40.4 L MCV 91.8 MCH 32.3 MCHC 35.1 RDW 13.5 Plt Count 128 MPV 10.1 Gran % 88.8 H Lymph % (Auto) 7.7 L [place] % (Auto) 3.5 Eos % (Auto) 0.0 L Baso % (Auto) 0.0 Gran # 6.38 Lymph # (Auto) 0.6 L [place] # (Auto) 0.3 Eos # (Auto) 0.0 Baso # (Auto) 0.00 Sodium Potassium Chloride Carbon Dioxide Anion Gap BUN Creatinine Est GFR ( Amer) Est GFR (Non-Af Amer) POC Glucose (mg/dL) Random Glucose Lactic Acid Calcium Phosphorus Magnesium Total Bilirubin AST ALT Alkaline Phosphatase Troponin I < 0.01 Total Protein Albumin Globulin Albumin/Globulin Ratio Thyroxine (T4) 6.7 TSH 3rd Generation 1.18 Urine Color Urine Appearance Urine pH Ur Specific Alfred Urine Protein Urine Glucose (UA) Urine Ketones Urine Blood Urine Nitrate Urine Bilirubin Urine Urobilinogen Ur Leukocyte Esterase Urine RBC Urine WBC Ur Epithelial Cells Urine Bacteria Urine Opiates Screen Urine Methadone Screen Ur Barbiturates Screen Ur Phencyclidine Scrn Ur Amphetamines Screen U Benzodiazepines Scrn U Oth Cocaine Metabols U Cannabinoids Screen 09/14/17 09/14/17 05:15 11:20 WBC RBC Hgb Hct MCV MCH MCHC RDW Plt Count MPV Gran % Lymph % (Auto) [place] % (Auto) Eos % (Auto) Baso % (Auto) Gran # Lymph # (Auto) [place] # (Auto) Eos # (Auto) Baso # (Auto) Sodium 140 Potassium 3.7 Chloride 101 Carbon Dioxide 25 Anion Gap 17 BUN 21 Creatinine 1.2 Est GFR ( Amer) > 60 Est GFR (Non-Af Amer) > 60 POC Glucose (mg/dL) 114 H Random Glucose 169 H Lactic Acid Calcium 9.5 Phosphorus 3.5 Magnesium 2.0 Total Bilirubin 1.1 AST 65 H ALT 59 H Alkaline Phosphatase 56 Troponin I 0.02 D Total Protein 7.7 Albumin 4.3 Globulin 3.4 Albumin/Globulin Ratio 1.3 Thyroxine (T4) TSH 3rd Generation Urine Color Urine Appearance Urine pH Ur Specific Alfred Urine Protein Urine Glucose (UA) Urine Ketones Urine Blood Urine Nitrate Urine Bilirubin Urine Urobilinogen Ur Leukocyte Esterase Urine RBC Urine WBC Ur Epithelial Cells Urine Bacteria Urine Opiates Screen Urine Methadone Screen Ur Barbiturates Screen Ur Phencyclidine Scrn Ur Amphetamines Screen U Benzodiazepines Scrn U Oth Cocaine Metabols U Cannabinoids Screen EKG/Cardiology Studies: Cardiology / EKG Studies 09/14/17 08:42 ELECTROCARDIOGRAM Routine Comment: Reason For Exam: CP 09/14/17 08:54 ELECTROCARDIOGRAM Routine Comment: Reason For Exam: CP Assessment/Plan - Assessment and Plan (Free Text) Plan: Patient seen and examined on rounds with resident, agree with note with following additions/exceptions: Patient is 62yo male with PMhx of uncontrolled HTN, nephrolithiasis, presented to MICU with Pfeiffer Type B aortic dissection and CP, with HTN. Currently on Labetolol drip, SBP ranging 120-140s, Vascular surgery consulted, recs noted. Aortic Dissection, Pfeiffer Type B HTN Recommend: - supp o2 as needed - panculture - BP control, goal SBP<140, Labetolol drip - follow up vascular surgery - NPO - ECHO - Cardiology follow up - GI ppx - DVT ppx, SCDs - Monitor in MICU
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
[2017-09-15] MEDS: Labetalol 500 MG in Sodium Chloride 0.9% 400 ML IV PRN ×6 (03:00→23:08)
[2017-09-15 06:05] LABS: EOS % 0.2 % (1.5-5.0); GRAN # 4.83 (1.4-6.5); GRAN % 77.2 % (50.0-68.0); HEMOGLOBIN 12.2 g/dL (14.0-18.0); LYMPH # 0.9 (1.2-3.4); LYMPH % 14.6 % (22.0-35.0); MEAN CELL VOLUME 92.7 fl (80.0-105.0); MEAN CORPUSCULAR HEMOGLOBIN 31.7 pg (25.0-35.0); MEAN CORPUSCULAR HGB CONC 34.2 g/dl (31.0-37.0); MEAN PLATELET VOLUME 10.5 fl (7.0-11.0); MONO # 0.5 (0.1-0.6); RBC 3.85 10^6/uL (3.5-6.1); RED CELL DISTRIBUTION WIDTH 13.8 % (11.5-14.5); WHITE BLOOD COUNT 6.3 10^3/ul (4.5-11.0)
[2017-09-15 06:23] LABS: ALB/GLOB RATIO 1.1 (1.1-1.8); ALBUMIN 3.5 g/dL (3.0-4.8)
[2017-09-15] MEDS ORDERED: Oxycodone/Acetaminophen 5/325 mg Tab PO PRN (07:41)
--- NOTE | 2017-09-15 07:47 | CP.PCM.PN ---
Subjective - Date & Time of Evaluation Date of Evaluation: 09/15/17 Time of Evaluation: 07:42 - Subjective Subjective: Surgery: Dr. Ruiz Pt seen and examined. No acute events overnight. No complaints of abd pain, chest pain, or lower extremity pain. Objective - Vital Signs/Intake and Output Vital Signs (last 24 hours): Temp Pulse Resp BP Pulse Ox 98.4 F 68 21 139/72 93 L 09/15/17 04:00 09/15/17 06:45 09/15/17 06:45 09/15/17 06:30 09/15/17 06:45 Intake and Output: 09/15/17 09/15/17 06:59 18:59 Intake Total 3147.0 128 Output Total 850 Balance 2297.0 128 - Medications Medications: Current Medications Hydromorphone HCl (Dilaudid) 2 mg IVP Q3H PRN PRN Reason: Pain, moderate (4-7) Labetalol HCl 500 mg/ Sodium (Chloride) 500 mls @ 30 mls/hr IV .[id number] PRN; Protocol; 0.5 MG/MIN PRN Reason: TITRATE PER MD ORDER Last Titration: 09/15/17 07:00 Dose: 3 mg/min, 180 mls/hr Ondansetron HCl (Zofran Inj) 4 mg IVP Q6H PRN PRN Reason: Nausea/Vomiting Last Admin: 09/14/17 03:45 Dose: 4 mg Pantoprazole Sodium (Protonix Inj) 40 mg IVP DAILY RICKY Last Admin: 09/14/17 10:13 Dose: 40 mg - Labs Labs: 09/15/17 05:30 09/15/17 05:30 PT 12.0 SECONDS (9.4-12.5) 09/13/17 18:10 INR 1.05 (0.93-1.08) 09/13/17 18:10 APTT 30.9 Seconds (25.1-36.5) 09/13/17 18:10 - Constitutional Appears: Non-toxic, No Acute Distress - Head Exam Head Exam: ATRAUMATIC, NORMOCEPHALIC - Eye Exam Eye Exam: EOMI - ENT Exam ENT Exam: Mucous Membranes Moist, Normal External Ear Exam - Neck Exam Neck Exam: Full ROM - Respiratory Exam Respiratory Exam: NORMAL BREATHING PATTERN. absent: Accessory Muscle Use, Respiratory Distress - Cardiovascular Exam Cardiovascular Exam: REGULAR RHYTHM - GI/Abdominal Exam GI & Abdominal Exam: Soft. absent: Distended, Firm, Guarding, Rigid, Tenderness - Extremities Exam Extremities Exam: absent: Calf Tenderness, Pedal Edema - Neurological Exam Neurological Exam: Alert, Awake, Oriented x3 Assessment and Plan - Assessment and Plan (Free Text) Assessment: 62M w. Type B aortic dissection Plan: -Strict BP control, systolic 130-140 -transition to PO pain meds -Pt will need repeat CTA in 6 months, if stable repeat annually -no surgical intervention at this time -surgery will sign off, please re-consult if needed -d/w attending Eileen PGY3
[2017-09-15] MEDS ORDERED: Potassium Chloride 20 mEq ER Tab PO STA (08:02)
--- NOTE | 2017-09-15 08:02 | CP.PCM.PN ---
Subjective - Date & Time of Evaluation Date of Evaluation: 09/15/17 Time of Evaluation: 07:00 - Subjective Subjective: Stable in CCU. No CP or SOB. Taking PO now. Case D/W hid bedside nurse. He was seen by vascular surgeon yesterday but I don't see a note from the surgeon. V/S Noted. BP up at times on labetalol drip PE: Lungs: clear Cor.: S1S2 Abd.: soft Ext.: no edema Neuro.: alert I/O= [id number]/[id number] Lab: Pl Ct.= 102,000, trops neg. X 3, K+= 3.4, Cr.= 1.8 ECG 09/14: RSR, PVCs, LVH, STTW changes Echo done, will read: prelim > NL LV fx. See full report. Objective - Vital Signs/Intake and Output Vital Signs (last 24 hours): Temp Pulse Resp BP Pulse Ox 98.4 F 68 21 139/72 93 L 09/15/17 04:00 09/15/17 06:45 09/15/17 06:45 09/15/17 06:30 09/15/17 06:45 Intake and Output: 09/15/17 09/15/17 06:59 18:59 Intake Total 3147.0 128 Output Total 850 Balance 2297.0 128 - Medications Medications: Current Medications Hydromorphone HCl (Dilaudid) 2 mg IVP Q3H PRN PRN Reason: Pain, moderate (4-7) Labetalol HCl 500 mg/ Sodium (Chloride) 500 mls @ 30 mls/hr IV .[id number] PRN; Protocol; 0.5 MG/MIN PRN Reason: TITRATE PER MD ORDER Last Titration: 09/15/17 07:00 Dose: 3 mg/min, 180 mls/hr Ondansetron HCl (Zofran Inj) 4 mg IVP Q6H PRN PRN Reason: Nausea/Vomiting Last Admin: 09/14/17 03:45 Dose: 4 mg Pantoprazole Sodium (Protonix Inj) 40 mg IVP DAILY RICKY Last Admin: 09/14/17 10:13 Dose: 40 mg - Labs Labs: 09/15/17 05:30 09/15/17 05:30 PT 12.0 SECONDS (9.4-12.5) 09/13/17 18:10 INR 1.05 (0.93-1.08) 09/13/17 18:10 APTT 30.9 Seconds (25.1-36.5) 09/13/17 18:10 Assessment and Plan - Assessment and Plan (Free Text) Assessment: Chest and YFN pain/Distal aortic dissection HBP Renal Stones Abnormal ECG Plan: As per Dr Harding, Vascular Surgery, Intensivists PO antihypertensives and wean off Labetolol as able. Will add amlodipne this AM PO KCL When stable> IVD nuclear stress test Monitor: I/O, renal fx., labs, sats., BPs, etc.
--- NOTE | 2017-09-15 09:48 | CARD ---
APPROVED REPORT EXAM: Two-dimensional and M-mode echocardiogram with Doppler and color Doppler. Other Information Quality : AverageRhythm : INDICATION Type B aortic dissection, HBP, abn ECG 2D DIMENSIONS Left Atrium (2D)3.5 (1.6-4.0cm)IVSd1.3 (0.7-1.1cm) LVDd5.0 (3.9-5.9cm)PWd1.3 (0.7-1.1cm) LVDs3.0 (2.5-4.0cm)FS (%) 40.6 % LVEF (%)71.0 (>50%) M-Mode DIMENSIONS Aortic Root3.50 (2.2-3.7cm)Aortic Cusp Exc.2.40 (1.5-2.0cm) Aortic Valve AoV Peak Xfmmdfxb643.0cm/s Mitral Valve MV E Guztxbsg81.9cm/sMV A Joedksyc08.7cm/sE/A ratio0.9 TDI Lateral E' Peak V10.40cm/sMedial E' Peak V6.52cm/sE/Lateral E'8.4 E/Medial E'13.3 Tricuspid Valve TR Peak [id number]/sRAP [id number] Peak Gr.36mmHg [id number] LEFT VENTRICLE The left ventricle is normal size. There is mild concentric left ventricular hypertrophy. The left ventricular function is normal. The left ventricular ejection fraction is within the normal range. There is normal LV segmental wall motion. RIGHT VENTRICLE The right ventricle is normal size. ATRIA The left atrium size is normal. The right atrium size is normal. The interatrial septum is intact with no evidence for an atrial septal defect. AORTIC VALVE The aortic valve is mildly calcified. MITRAL VALVE The mitral valve is normal in structure. Mitral regurgitation is mild. TRICUSPID VALVE The tricuspid valve is normal in structure. There is mild tricuspid regurgitation. PULMONIC VALVE The pulmonic valve is not well visualized. GREAT VESSELS The aortic root is normal in size. PERICARDIAL EFFUSION There is no pericardial effusion. <Conclusion> The left ventricle is normal size. There is mild concentric left ventricular hypertrophy. The left ventricular function is normal. Mitral regurgitation is mild. There is mild tricuspid regurgitation.
--- NOTE | 2017-09-15 12:48 | CP.CCUPN ---
<Adan Flowers - Last Filed: 09/15/17 12:45> CCU Subjective - Physician Review Subjective (Free Text): Patient seen and examined at bedside. Patient with no complaints presently. Denies chest pain, shortness of breath, nausea, vomiting, diarrhea, fever, chills. CCU Objective - Vital Signs / Intake & Output Vital Signs (Last 4 hours): Vital Signs Pulse BP 09/15/17 11:00 84 177/100 H 09/15/17 09:40 77 151/95 H Intake and Output (Last 8hrs): Intake & Output 09/14/17 09/15/17 09/15/17 22:59 06:59 14:59 Intake Total 2480 3147.0 378 Output Total 600 850 Balance 1880 2297.0 378 Weight 231 lb 14.4 oz Intake: IV 2000 3027.0 378 Left Antecubital 1405 Left Hand 1500 Oral 480 120 Output: Urine 600 850 Urine, Voided 600 850 Emesis 0 Other: # Voids Urine, Voided 2 # Bowel Movements 0 0 - Physical Exam Head: Positive for: Atraumatic, Normocephalic Pupils: Positive for: PERRL Extroacular Muscles: Positive for: EOMI Conjunctiva: Positive for: Normal Mouth: Positive for: Moist Mucous Membranes Neck: Positive for: Normal Range of Motion Respiratory/Chest: Positive for: Clear to Auscultation, Good Air Exchange. Negative for: Respiratory Distress, Accessory Muscle Use Cardiovascular: Positive for: Regular Rate and Rhythm, Normal S1, S2. Negative for: Murmurs Abdomen: Positive for: Normal Bowel Sounds, Peritoneal Signs. Negative for: Tenderness, Distention Upper Extremity: Positive for: Normal Inspection. Negative for: Cyanosis, Edema Lower Extremity: Positive for: Normal Inspection. Negative for: Edema Neurological: Positive for: GCS=15, CN II-XII Intact, Speech Normal Skin: Positive for: Warm, Dry, Normal Color. Negative for: Rashes Psychiatric: Positive for: Alert, Oriented x 3, Normal Insight, Normal Concentration - Medications Active Medications: Active Medications Generic Name Dose Route Start Last Admin Trade Name Freq PRN Reason Stop Dose Admin Amlodipine Besylate 5 mg 09/15/17 10:00 09/15/17 11:00 Norvasc PO 5 mg DAILY RICKY Administration Hydromorphone HCl 2 mg 09/15/17 07:24 Dilaudid IVP Q3H PRN Pain, moderate (4-7) Labetalol HCl 500 mg/ Sodium 500 mls @ 30 mls/hr 09/14/17 01:54 09/15/17 09: 40 Chloride IV 2.5 mg/min .[id number] PRN 150 mls/hr TITRATE PER MD ORDER Administration Protocol 0.5 MG/MIN Metoprolol Tartrate 25 mg 09/15/17 10:00 09/15/17 08:30 Lopressor PO 25 mg BID RICKY Administration Ondansetron HCl 4 mg 09/14/17 00:57 09/14/17 03:45 Zofran Inj IVP 4 mg Q6H PRN Administration Nausea/Vomiting Oxycodone/Acetaminophen 1 tab 09/15/17 07:41 Percocet 5/325 Mg Tab PO 09/18/17 07:42 Q4H PRN Pain, moderate (4-7) Pantoprazole Sodium 40 mg 09/14/17 10:00 09/15/17 09:00 Protonix Inj IVP 40 mg DAILY RICKY Administration - Patient Studies Lab Studies: Lab Studies 09/15/17 09/15/17 09/15/17 Range/Units 11:33 06:16 05:30 WBC (4.5-11.0) 10^3/ul RBC (3.5-6.1) 10^6/uL Hgb (14.0-18.0) g/dL Hct (42.0-52.0) % MCV (80.0-105.0) fl MCH (25.0-35.0) pg MCHC (31.0-37.0) g/dl RDW (11.5-14.5) % Plt Count (120.0-450.0) 10^3/uL MPV (7.0-11.0) fl Gran % (50.0-68.0) % Lymph % (Auto) (22.0-35.0) % Coffee % (Auto) (1.0-6.0) % Eos % (Auto) (1.5-5.0) % Baso % (Auto) (0.0-3.0) % Gran # (1.4-6.5) Lymph # (Auto) (1.2-3.4) Coffee # (Auto) (0.1-0.6) Eos # (Auto) (0.0-0.7) Baso # (Auto) (0.0-2.0) K/mm3 Sodium 137 (132-148) mmol/L Potassium 3.4 L (3.6-5.0) mmol/L Chloride 103 (98-107) mmol/L Carbon Dioxide 25 (21-33) mmol/L Anion Gap 13 (10-20) BUN 28 H (7-21) mg/dL Creatinine 1.8 H (0.8-1.5) mg/dl Est GFR ( Amer) 46 Est GFR (Non-Af Amer) 38 POC Glucose (mg/dL) 112 H 127 H (65-110) mg/dL Random Glucose 137 H (70-110) mg/dL Calcium 9.0 (8.4-10.5) mg/dL Phosphorus 3.3 (2.5-4.5) mg/dL Magnesium 1.8 (1.7-2.2) mg/dL Total Bilirubin 1.5 H (0.2-1.3) mg/dL AST 66 H (17-59) U/L ALT 56 (7-56) U/L Alkaline Phosphatase 43 (38-126) U/L Total Protein 6.5 (5.8-8.3) g/dL Albumin 3.5 (3.0-4.8) g/dL Globulin 3.0 gm/dL Albumin/Globulin Ratio 1.1 (1.1-1.8) 09/15/17 09/14/17 09/14/17 Range/Units 05:30 22:15 18:02 WBC 6.3 (4.5-11.0) 10^3/ul RBC 3.85 (3.5-6.1) 10^6/uL Hgb 12.2 L D (14.0-18.0) g/dL Hct 35.7 L (42.0-52.0) % MCV 92.7 (80.0-105.0) fl MCH 31.7 (25.0-35.0) pg MCHC 34.2 (31.0-37.0) g/dl RDW 13.8 (11.5-14.5) % Plt Count 102 L (120.0-450.0) 10^3/uL MPV 10.5 (7.0-11.0) fl Gran % 77.2 H (50.0-68.0) % Lymph % (Auto) 14.6 L (22.0-35.0) % Coffee % (Auto) 8.0 H (1.0-6.0) % Eos % (Auto) 0.2 L (1.5-5.0) % Baso % (Auto) 0.0 (0.0-3.0) % Gran # 4.83 (1.4-6.5) Lymph # (Auto) 0.9 L (1.2-3.4) Coffee # (Auto) 0.5 (0.1-0.6) Eos # (Auto) 0.0 (0.0-0.7) Baso # (Auto) 0.00 (0.0-2.0) K/mm3 Sodium (132-148) mmol/L Potassium (3.6-5.0) mmol/L Chloride (98-107) mmol/L Carbon Dioxide (21-33) mmol/L Anion Gap (10-20) BUN (7-21) mg/dL Creatinine (0.8-1.5) mg/dl Est GFR ( Amer) Est GFR (Non-Af Amer) POC Glucose (mg/dL) 101 128 H (65-110) mg/dL Random Glucose (70-110) mg/dL Calcium (8.4-10.5) mg/dL Phosphorus (2.5-4.5) mg/dL Magnesium (1.7-2.2) mg/dL Total Bilirubin (0.2-1.3) mg/dL AST (17-59) U/L ALT (7-56) U/L Alkaline Phosphatase (38-126) U/L Total Protein (5.8-8.3) g/dL Albumin (3.0-4.8) g/dL Globulin gm/dL Albumin/Globulin Ratio (1.1-1.8) Laboratory Results - last 24 hr 09/14/17 09/14/17 09/15/17 18:02 22:15 05:30 WBC 6.3 RBC 3.85 Hgb 12.2 L D Hct 35.7 L MCV 92.7 MCH 31.7 MCHC 34.2 RDW 13.8 Plt Count 102 L MPV 10.5 Gran % 77.2 H Lymph % (Auto) 14.6 L Coffee % (Auto) 8.0 H Eos % (Auto) 0.2 L Baso % (Auto) 0.0 Gran # 4.83 Lymph # (Auto) 0.9 L Coffee # (Auto) 0.5 Eos # (Auto) 0.0 Baso # (Auto) 0.00 Sodium Potassium Chloride Carbon Dioxide Anion Gap BUN Creatinine Est GFR ( Amer) Est GFR (Non-Af Amer) POC Glucose (mg/dL) 128 H 101 Random Glucose Calcium Phosphorus Magnesium Total Bilirubin AST ALT Alkaline Phosphatase Total Protein Albumin Globulin Albumin/Globulin Ratio 09/15/17 09/15/17 09/15/17 05:30 06:16 11:33 WBC RBC Hgb Hct MCV MCH MCHC RDW Plt Count MPV Gran % Lymph % (Auto) Coffee % (Auto) Eos % (Auto) Baso % (Auto) Gran # Lymph # (Auto) Coffee # (Auto) Eos # (Auto) Baso # (Auto) Sodium 137 Potassium 3.4 L Chloride 103 Carbon Dioxide 25 Anion Gap 13 BUN 28 H Creatinine 1.8 H Est GFR ( Amer) 46 Est GFR (Non-Af Amer) 38 POC Glucose (mg/dL) 127 H 112 H Random Glucose 137 H Calcium 9.0 Phosphorus 3.3 Magnesium 1.8 Total Bilirubin 1.5 H AST 66 H ALT 56 Alkaline Phosphatase 43 Total Protein 6.5 Albumin 3.5 Globulin 3.0 Albumin/Globulin Ratio 1.1 Fingerstick Blood Sugar Results: 127 Critical Care Progress Note - Nutrition Nutrition: Nutrition Category Date Time Status Heart Healthy Diet [DIET] Diets 09/14/17 Breakfast Ordered Assessment/Plan - Assessment and Plan (Free Text) Plan: 62M PMHx HTN and nephrolithiasis presents with aortic dissection, pfeiffer type B. No vascular intervention at this time, follow up CTA of chest in 6 months. Patient to be started on oral antihypertensives and weaned off labetalol as per cardiology. Will continue to monitor patient in the ICU. Neuro: AAOx3 No deficits Cardio: Hemodynamically stable Oral antihypertensives started Maintain SBP <140 Echo demonstrates normal EF with LVH, see full report Wean off Labetalol drip Cardiology consulted Cardiovascular surgery consulted Pulm: Maintain O2 sat >90% GI: Protonix NPO Endo: Maintain euglycemia Nephro: Maintain euvolemia Replenish electrolytes as needed Heme/ID: Afebrile, no leukocytosis Maintain normothermia Lionel PGY-2 <Genaro Pollard - Last Filed: 09/15/17 12:54> CCU Objective - Vital Signs / Intake & Output Vital Signs (Last 4 hours): Vital Signs Pulse BP 09/15/17 11:00 84 177/100 H 09/15/17 09:40 77 151/95 H Intake and Output (Last 8hrs): Intake & Output 09/14/17 09/15/17 09/15/17 22:59 06:59 14:59 Intake Total 2480 3147.0 378 Output Total 600 850 Balance 1880 2297.0 378 Weight 231 lb 14.4 oz Intake: IV 2000 3027.0 378 Left Antecubital 1405 Left Hand 1500 Oral 480 120 Output: Urine 600 850 Urine, Voided 600 850 Emesis 0 Other: # Voids Urine, Voided 2 # Bowel Movements 0 0 - Medications Active Medications: Active Medications Generic Name Dose Route Start Last Admin Trade Name Freq PRN Reason Stop Dose Admin Amlodipine Besylate 5 mg 09/15/17 10:00 09/15/17 11:00 Norvasc PO 5 mg DAILY RICKY Administration Amlodipine Besylate 5 mg 09/15/17 12:51 Norvasc PO 09/15/17 12:52 ONCE ONE Hydromorphone HCl 2 mg 09/15/17 07:24 Dilaudid IVP Q3H PRN Pain, moderate (4-7) Labetalol HCl 500 mg/ Sodium 500 mls @ 30 mls/hr 09/14/17 01:54 09/15/17 09: 40 Chloride IV 2.5 mg/min .[id number] PRN 150 mls/hr TITRATE PER MD ORDER Administration Protocol 0.5 MG/MIN Metoprolol Tartrate 25 mg 09/15/17 10:00 09/15/17 08:30 Lopressor PO 25 mg BID RICKY Administration Ondansetron HCl 4 mg 09/14/17 00:57 09/14/17 03:45 Zofran Inj IVP 4 mg Q6H PRN Administration Nausea/Vomiting Oxycodone/Acetaminophen 1 tab 09/15/17 07:41 Percocet 5/325 Mg Tab PO 09/18/17 07:42 Q4H PRN Pain, moderate (4-7) Pantoprazole Sodium 40 mg 09/14/17 10:00 09/15/17 09:00 Protonix Inj IVP 40 mg DAILY RICKY Administration - Patient Studies Lab Studies: Lab Studies 09/15/17 09/15/17 09/15/17 Range/Units 11:33 06:16 05:30 WBC (4.5-11.0) 10^3/ul RBC (3.5-6.1) 10^6/uL Hgb (14.0-18.0) g/dL Hct (42.0-52.0) % MCV (80.0-105.0) fl MCH (25.0-35.0) pg MCHC (31.0-37.0) g/dl RDW (11.5-14.5) % Plt Count (120.0-450.0) 10^3/uL MPV (7.0-11.0) fl Gran % (50.0-68.0) % Lymph % (Auto) (22.0-35.0) % Coffee % (Auto) (1.0-6.0) % Eos % (Auto) (1.5-5.0) % Baso % (Auto) (0.0-3.0) % Gran # (1.4-6.5) Lymph # (Auto) (1.2-3.4) Coffee # (Auto) (0.1-0.6) Eos # (Auto) (0.0-0.7) Baso # (Auto) (0.0-2.0) K/mm3 Sodium 137 (132-148) mmol/L Potassium 3.4 L (3.6-5.0) mmol/L Chloride 103 (98-107) mmol/L Carbon Dioxide 25 (21-33) mmol/L Anion Gap 13 (10-20) BUN 28 H (7-21) mg/dL Creatinine 1.8 H (0.8-1.5) mg/dl Est GFR ( Amer) 46 Est GFR (Non-Af Amer) 38 POC Glucose (mg/dL) 112 H 127 H (65-110) mg/dL Random Glucose 137 H (70-110) mg/dL Calcium 9.0 (8.4-10.5) mg/dL Phosphorus 3.3 (2.5-4.5) mg/dL Magnesium 1.8 (1.7-2.2) mg/dL Total Bilirubin 1.5 H (0.2-1.3) mg/dL AST 66 H (17-59) U/L ALT 56 (7-56) U/L Alkaline Phosphatase 43 (38-126) U/L Total Protein 6.5 (5.8-8.3) g/dL Albumin 3.5 (3.0-4.8) g/dL Globulin 3.0 gm/dL Albumin/Globulin Ratio 1.1 (1.1-1.8) 09/15/17 09/14/17 09/14/17 Range/Units 05:30 22:15 18:02 WBC 6.3 (4.5-11.0) 10^3/ul RBC 3.85 (3.5-6.1) 10^6/uL Hgb 12.2 L D (14.0-18.0) g/dL Hct 35.7 L (42.0-52.0) % MCV 92.7 (80.0-105.0) fl MCH 31.7 (25.0-35.0) pg MCHC 34.2 (31.0-37.0) g/dl RDW 13.8 (11.5-14.5) % Plt Count 102 L (120.0-450.0) 10^3/uL MPV 10.5 (7.0-11.0) fl Gran % 77.2 H (50.0-68.0) % Lymph % (Auto) 14.6 L (22.0-35.0) % Coffee % (Auto) 8.0 H (1.0-6.0) % Eos % (Auto) 0.2 L (1.5-5.0) % Baso % (Auto) 0.0 (0.0-3.0) % Gran # 4.83 (1.4-6.5) Lymph # (Auto) 0.9 L (1.2-3.4) Coffee # (Auto) 0.5 (0.1-0.6) Eos # (Auto) 0.0 (0.0-0.7) Baso # (Auto) 0.00 (0.0-2.0) K/mm3 Sodium (132-148) mmol/L Potassium (3.6-5.0) mmol/L Chloride (98-107) mmol/L Carbon Dioxide (21-33) mmol/L Anion Gap (10-20) BUN (7-21) mg/dL Creatinine (0.8-1.5) mg/dl Est GFR ( Amer) Est GFR (Non-Af Amer) POC Glucose (mg/dL) 101 128 H (65-110) mg/dL Random Glucose (70-110) mg/dL Calcium (8.4-10.5) mg/dL Phosphorus (2.5-4.5) mg/dL Magnesium (1.7-2.2) mg/dL Total Bilirubin (0.2-1.3) mg/dL AST (17-59) U/L ALT (7-56) U/L Alkaline Phosphatase (38-126) U/L Total Protein (5.8-8.3) g/dL Albumin (3.0-4.8) g/dL Globulin gm/dL Albumin/Globulin Ratio (1.1-1.8) Laboratory Results - last 24 hr 09/14/17 09/14/17 09/15/17 18:02 22:15 05:30 WBC 6.3 RBC 3.85 Hgb 12.2 L D Hct 35.7 L MCV 92.7 MCH 31.7 MCHC 34.2 RDW 13.8 Plt Count 102 L MPV 10.5 Gran % 77.2 H Lymph % (Auto) 14.6 L Coffee % (Auto) 8.0 H Eos % (Auto) 0.2 L Baso % (Auto) 0.0 Gran # 4.83 Lymph # (Auto) 0.9 L Coffee # (Auto) 0.5 Eos # (Auto) 0.0 Baso # (Auto) 0.00 Sodium Potassium Chloride Carbon Dioxide Anion Gap BUN Creatinine Est GFR ( Amer) Est GFR (Non-Af Amer) POC Glucose (mg/dL) 128 H 101 Random Glucose Calcium Phosphorus Magnesium Total Bilirubin AST ALT Alkaline Phosphatase Total Protein Albumin Globulin Albumin/Globulin Ratio 09/15/17 09/15/17 09/15/17 05:30 06:16 11:33 WBC RBC Hgb Hct MCV MCH MCHC RDW Plt Count MPV Gran % Lymph % (Auto) Coffee % (Auto) Eos % (Auto) Baso % (Auto) Gran # Lymph # (Auto) Coffee # (Auto) Eos # (Auto) Baso # (Auto) Sodium 137 Potassium 3.4 L Chloride 103 Carbon Dioxide 25 Anion Gap 13 BUN 28 H Creatinine 1.8 H Est GFR ( Amer) 46 Est GFR (Non-Af Amer) 38 POC Glucose (mg/dL) 127 H 112 H Random Glucose 137 H Calcium 9.0 Phosphorus 3.3 Magnesium 1.8 Total Bilirubin 1.5 H AST 66 H ALT 56 Alkaline Phosphatase 43 Total Protein 6.5 Albumin 3.5 Globulin 3.0 Albumin/Globulin Ratio 1.1 Critical Care Progress Note - Nutrition Nutrition: Nutrition Category Date Time Status Heart Healthy Diet [DIET] Diets 09/14/17 Breakfast Ordered Assessment/Plan - Assessment and Plan (Free Text) Plan: Patient seen and examined on rounds with resident, agree with note with following additions/exceptions: Patient is 62yo male with PMhx of uncontrolled HTN, nephrolithiasis, presented to MICU with Pfeiffer Type B aortic dissection and CP, with HTN. Currently off Labetolol drip, SBP ranging 120-140s, Vascular surgery consulted, recs noted. No surgical intervention at this time as per vascular surgery Aortic Dissection, Pfeiffer Type B HTN Recommend: - supp o2 as needed - panculture - BP control, goal SBP<140, DC Labetolol drip - Norvasc 10mg daily, Lopressor 25mg BID - follow up vascular surgery - Low salt diet - ECHO - Cardiology follow up - GI ppx - DVT ppx, SCDs - Monitor in MICU
[2017-09-15] MEDS: Sodium Chloride 0.45% 1,000 ML IV SCH (13:32)
[2017-09-15] MEDS ORDERED: Labetalol 500 MG in Sodium Chloride 0.9% 400 ML IV PRN (13:39)
[2017-09-15 19:19] LABS: EOS % 0.2 % (1.5-5.0); GRAN # 5.24 (1.4-6.5); GRAN % 80.2 % (50.0-68.0); HEMOGLOBIN 12.5 g/dL (14.0-18.0); LYMPH # 0.9 (1.2-3.4); LYMPH % 13.2 % (22.0-35.0); MEAN CELL VOLUME 92.8 fl (80.0-105.0); MEAN CORPUSCULAR HEMOGLOBIN 32.1 pg (25.0-35.0); MEAN CORPUSCULAR HGB CONC 34.5 g/dl (31.0-37.0); MEAN PLATELET VOLUME 10.4 fl (7.0-11.0); MONO # 0.4 (0.1-0.6); MONO % 6.4 % (1.0-6.0); RBC 3.9 10^6/uL (3.5-6.1); RED CELL DISTRIBUTION WIDTH 13.8 % (11.5-14.5); WHITE BLOOD COUNT 6.5 10^3/ul (4.5-11.0)
[2017-09-15 19:52] LABS: ALB/GLOB RATIO 1.1 (1.1-1.8); ALBUMIN 3.5 g/dL (3.0-4.8); ALT/SGPT 49 U/L (7-56); AST/SGOT 56 U/L (17-59); BLOOD UREA NITROGEN 19 mg/dL (7-21); CALCIUM 9.3 mg/dL (8.4-10.5); GFR AFRICAN-AMERICAN > 60; GFR NON-AFRICAN AMERICAN 56
[2017-09-15] MEDS ORDERED: Metoprolol 1 mg/ml Inj IVP ONE (22:47)
[2017-09-15] MEDS ORDERED: Levalbuterol 0.63 MG/3 ML Inhal Soln UD IH ONE (22:47)
--- NOTE | 2017-09-16 00:36 | PN ---
DATE: 09/15/2017 CRITICAL CARE PROGRESS NOTE SUBJECTIVE: This 62-year-old male who was examined at his bedside in the Critical Care Unit, bed 7, in the presence of all family members at his bedside. The patient was admitted with a Mingus dissecting aneurysm type B and was seen in consultation by Dr. Ruiz, Cardiothoracic Surgery who recommended no surgical intervention at this time and a followup CTA in 6 months. The patient is being medically treated in the [facility] ICU and is being followed by intensive care agricultural produce washer, Dr. Genaro Pollard as well as Dr. Beni Guo from Cardiology. At present, the patient is lying in his bed, denying any fever, chills, chest pain or shortness of breath and remains in a normal sinus rhythm on the monitoring specialist. PHYSICAL EXAMINATION: VITAL SIGNS: His temperature is 98.4, respirations 21, pulse 84 and blood pressure 151/95. Urine output was 850 mL thus far today. HEENT: Head, normocephalic and atraumatic. Eyes, no icterus. Ears, clear. Throat, noninjected. NECK: Supple. HEART: Was regular. S1, S2. LUNGS: Clear. ABDOMEN: Obese, nontender. No palpable organomegaly. No rebound. No guarding. No tenderness. EXTREMITIES: No edema. SKIN: Without rash. NEUROLOGIC: Intact. PSYCHOLOGIC: Alert. VASCULAR: Legs warm to touch. LABORATORY DATA: White count 6500, hemoglobin 12.5, hematocrit 36.2, platelets 107,000. PT/INR 1.05. PTT 30.9. Sodium 137, K 3.4, chloride 103, bicarb 25, BUN 28, creatinine 1.8, random blood sugar 137. Bilirubin 1.5, AST 66, ALT 56 and alk phos 43. T4 normal 6.7. TSH normal 1.18. Urinalysis showed few bacteria. Echocardiography was reviewed and showed left ventricle normal in size with mild concentric left ventricular hypertrophy, normal left ventricular function and mild mitral regurgitation with mild tricuspid regurgitation. IMPRESSION AND PLAN: This is a 62-year-old male status post type B aortic dissection of his aorta with no recommendation for vascular intervention at this time by Cardiothoracic Surgery who does recommend a followup CTA of the chest in 6 months. The patient remains on IV labetalol and will be switched to oral antihypertensive agents and weaned off IV labetalol as per new vehicle sales consultant, Dr. Guo. At present, the patient remains hemodynamically stable. We are aiming to maintain a systolic blood pressure less than 140 systolic. He will be maintained with O2 saturations greater than 90%. He continues on medications including 0.45 saline at 70 mL per hour, Lopressor 25 mg p.o. b.i.d., Norvasc 5 mg p.o. daily, Protonix 40 mg IV daily and IV labetalol. He is ordered to have a heart-healthy diet, I's and O's, antiembolism stockings and repeat CBC, phosphorous, magnesium level, hemoglobin A1c and comprehensive metabolic panel for the a.m. All of the above was discussed in detail with the patient, family and critical care co-consultants. Greater than 35 minutes was spent in the care management, review of labs, orders and x-rays for this patient. All questions were answered. Janet Harding MD MTDD
[2017-09-16] MEDS: Labetalol 500 MG in Sodium Chloride 0.9% 400 ML IV PRN ×3 (01:09→06:30)
[2017-09-16] MEDS: Sodium Chloride 0.45% 1,000 ML IV SCH (04:30)
[2017-09-16 06:58] LABS: EOS % 0.2 % (1.5-5.0); GRAN # 4.46 (1.4-6.5); GRAN % 79.9 % (50.0-68.0); HEMOGLOBIN 12.1 g/dL (14.0-18.0); LYMPH # 0.6 (1.2-3.4); LYMPH % 10.9 % (22.0-35.0); MEAN CELL VOLUME 93.4 fl (80.0-105.0); MEAN CORPUSCULAR HGB CONC 34.3 g/dl (31.0-37.0); MEAN PLATELET VOLUME 10.8 fl (7.0-11.0); MONO # 0.5 (0.1-0.6); RBC 3.78 10^6/uL (3.5-6.1); RED CELL DISTRIBUTION WIDTH 13.9 % (11.5-14.5); WHITE BLOOD COUNT 5.6 10^3/ul (4.5-11.0)
[2017-09-16 07:25] LABS: ALBUMIN 3.3 g/dL (3.0-4.8); ALT/SGPT 48 U/L (7-56); AST/SGOT 52 U/L (17-59); BLOOD UREA NITROGEN 15 mg/dL (7-21); CALCIUM 9.1 mg/dL (8.4-10.5); GFR AFRICAN-AMERICAN > 60; GFR NON-AFRICAN AMERICAN > 60
--- NOTE | 2017-09-16 08:49 | CP.PCM.PN ---
Subjective - Date & Time of Evaluation Date of Evaluation: 09/16/17 Time of Evaluation: 07:00 - Subjective Subjective: Stable in CCU. No CP or SOB. BP still above 140 sys. at times, still on IV Labetolol. V/S Noted. BP up at times on labetalol drip. 146/87, 135/80 recent readings PE: Lungs: clear Cor.: S1S2 Abd.: soft Ext.: no edema Neuro.: alert Labs today noted: Cr.= 1.1 ECG 09/14: RSR, PVCs, LVH, STTW changes Echo: NL LV with LVH, Mild MR and TR Objective - Vital Signs/Intake and Output Vital Signs (last 24 hours): Temp Pulse Resp BP Pulse Ox 98.4 F 65 22 146/87 94 L 09/16/17 07:47 09/16/17 06:59 09/16/17 06:59 09/16/17 07:00 09/16/17 06:59 Intake and Output: 09/16/17 09/16/17 06:59 18:59 Intake Total 5460 Output Total 1750 Balance 3710 - Medications Medications: Current Medications Amlodipine Besylate (Norvasc) 10 mg PO DAILY RICKY Hydralazine HCl (Apresoline) 10 mg IVP Q6 PRN PRN Reason: Systolic Blood Pressure Hydromorphone HCl (Dilaudid) 2 mg IVP Q3H PRN PRN Reason: Pain, moderate (4-7) Sodium Chloride (Sodium Chloride 0.45%) 1,000 mls @ 70 mls/hr IV .[id number] RICKY Last Admin: 09/16/17 04:30 Dose: 70 mls/hr Labetalol HCl 500 mg/ Sodium (Chloride) 500 mls @ 120 mls/hr IV .Q4H10M PRN; Protocol PRN Reason: TITRATE PER MD ORDER Last Admin: 09/16/17 06:30 Dose: 180 mg/hr, 180 mls/hr Lisinopril (Zestril) 2.5 mg PO DAILY [facility] Metoprolol Tartrate (Lopressor) 50 mg PO BID [facility] Ondansetron HCl (Zofran Inj) 4 mg IVP Q6H PRN PRN Reason: Nausea/Vomiting Last Admin: 09/14/17 03:45 Dose: 4 mg Oxycodone/Acetaminophen (Percocet 5/325 Mg Tab) 1 tab PO Q4H PRN PRN Reason: Pain, moderate (4-7) Stop: 09/18/17 07:42 Pantoprazole Sodium (Protonix Inj) 40 mg IVP DAILY RICKY Last Admin: 09/15/17 09:00 Dose: 40 mg - Labs Labs: 09/16/17 06:00 09/16/17 06:00 PT 12.0 SECONDS (9.4-12.5) 09/13/17 18:10 INR 1.05 (0.93-1.08) 09/13/17 18:10 APTT 30.9 Seconds (25.1-36.5) 09/13/17 18:10 Assessment and Plan - Assessment and Plan (Free Text) Assessment: Chest and YFN pain/Distal aortic dissection (Type B) HBP Acute on chronic kidney disease Renal Stones Abnormal ECG Plan: As per Dr Harding, Vascular Surgery, Intensivists PO antihypertensives and wean off Labetolol now. Will increase amlodipne and metoprolol this AM. Add lisinopril 2.5 daily. Titrate BP meds. PO KCL Tel bed. OOB/PT D/C IVF When stable> IVD nuclear stress test Monitor: I/O, renal fx., labs, sats., BPs, etc. Case D/W his bedside nurse.
--- NOTE | 2017-09-16 10:54 | CP.CCUPN ---
<Adan Flowers - Last Filed: 09/16/17 10:47> CCU Subjective - Physician Review Subjective (Free Text): Patient seen and examined at bedside. Patient complains of mild shortness of breath. Denies chest pain, nausea, vomiting, diarrhea, fever, chills. CCU Objective - Vital Signs / Intake & Output Vital Signs (Last 4 hours): Vital Signs Temp Pulse Resp BP Pulse Ox 09/16/17 09:54 73 155/97 H 09/16/17 09:42 70 158/95 H 09/16/17 07:47 98.4 F 09/16/17 07:00 146/87 09/16/17 06:59 65 22 94 L Intake and Output (Last 8hrs): Intake & Output 09/15/17 09/16/17 09/16/17 22:59 06:59 14:59 Intake Total 3820 4460 Output Total 1650 1750 Balance 2170 2710 Weight 235 lb 9.6 oz Intake: IV 3100 4340 Left Antecubital 2100 2840 Right Antecubital 0 Oral 720 120 Output: Urine 1650 1750 Urine, Voided 1650 1750 Emesis 0 Other: # Bowel Movements 0 0 - Physical Exam Head: Positive for: Atraumatic, Normocephalic Pupils: Positive for: PERRL Extroacular Muscles: Positive for: EOMI Conjunctiva: Positive for: Normal Mouth: Positive for: Moist Mucous Membranes Neck: Positive for: Normal Range of Motion Respiratory/Chest: Positive for: Clear to Auscultation, Decreased Breath Sounds. Negative for: Respiratory Distress, Accessory Muscle Use Cardiovascular: Positive for: Regular Rate and Rhythm, Normal S1, S2. Negative for: Murmurs Abdomen: Positive for: Normal Bowel Sounds. Negative for: Tenderness, Distention Back: Positive for: Normal Inspection Upper Extremity: Positive for: Normal Inspection. Negative for: Cyanosis, Edema Lower Extremity: Positive for: Normal Inspection. Negative for: Edema Neurological: Positive for: GCS=15, CN II-XII Intact, Speech Normal Skin: Positive for: Warm, Dry, Normal Color. Negative for: Rashes Psychiatric: Positive for: Alert, Oriented x 3, Normal Insight, Normal Concentration - Medications Active Medications: Active Medications Generic Name Dose Route Start Last Admin Trade Name Freq PRN Reason Stop Dose Admin Amlodipine Besylate 10 mg 09/16/17 10:00 09/16/17 09:42 Norvasc PO 10 mg DAILY RICKY Administration Hydralazine HCl 10 mg 09/16/17 04:30 Apresoline IVP Q6 PRN Systolic Blood Pressure Hydromorphone HCl 2 mg 09/15/17 07:24 Dilaudid IVP Q3H PRN Pain, moderate (4-7) Labetalol HCl 500 mg/ Sodium 500 mls @ 120 mls/hr 09/15/17 13:57 09/16/17 06: 30 Chloride IV 180 mg/hr .Q4H10M PRN 180 mls/hr TITRATE PER MD ORDER Administration Protocol Lisinopril 2.5 mg 09/16/17 10:00 09/16/17 09:54 Zestril PO 2.5 mg DAILY RICKY Administration Metoprolol Tartrate 50 mg 09/16/17 10:00 09/16/17 09:42 Lopressor PO 50 mg BID RICKY Administration Ondansetron HCl 4 mg 09/14/17 00:57 09/14/17 03:45 Zofran Inj IVP 4 mg Q6H PRN Administration Nausea/Vomiting Oxycodone/Acetaminophen 1 tab 09/15/17 07:41 Percocet 5/325 Mg Tab PO 09/18/17 07:42 Q4H PRN Pain, moderate (4-7) Pantoprazole Sodium 40 mg 09/17/17 06:00 Protonix Ec Tab PO 0600 [facility] - Patient Studies Lab Studies: Microbiology Studies 09/13/17 22:40 MRSA Culture (Admit) - Final Nose MRSA NOT DETECTED Lab Studies 09/16/17 09/16/17 09/16/17 Range/Units 07:43 06:00 06:00 WBC 5.6 (4.5-11.0) 10^3/ul RBC 3.78 (3.5-6.1) 10^6/uL Hgb 12.1 L (14.0-18.0) g/dL Hct 35.3 L (42.0-52.0) % MCV 93.4 (80.0-105.0) fl MCH 32.0 (25.0-35.0) pg MCHC 34.3 (31.0-37.0) g/dl RDW 13.9 (11.5-14.5) % Plt Count 110 L (120.0-450.0) 10^3/uL MPV 10.8 (7.0-11.0) fl Gran % 79.9 H (50.0-68.0) % Lymph % (Auto) 10.9 L (22.0-35.0) % [place] % (Auto) 9.0 H (1.0-6.0) % Eos % (Auto) 0.2 L (1.5-5.0) % Baso % (Auto) 0.0 (0.0-3.0) % Gran # 4.46 (1.4-6.5) Lymph # (Auto) 0.6 L (1.2-3.4) [place] # (Auto) 0.5 (0.1-0.6) Eos # (Auto) 0.0 (0.0-0.7) Baso # (Auto) 0.00 (0.0-2.0) K/mm3 Sodium 139 (132-148) mmol/L Potassium 4.0 (3.6-5.0) mmol/L Chloride 108 H (98-107) mmol/L Carbon Dioxide 24 (21-33) mmol/L Anion Gap 11 (10-20) BUN 15 (7-21) mg/dL Creatinine 1.1 (0.8-1.5) mg/dl Est GFR ( Amer) > 60 Est GFR (Non-Af Amer) > 60 POC Glucose (mg/dL) 126 H (65-110) mg/dL Random Glucose 138 H (70-110) mg/dL Hemoglobin A1c (4.2-6.5) % Calcium 9.1 (8.4-10.5) mg/dL Phosphorus 2.8 (2.5-4.5) mg/dL Magnesium 1.9 (1.7-2.2) mg/dL Total Bilirubin 1.7 H (0.2-1.3) mg/dL AST 52 (17-59) U/L ALT 48 (7-56) U/L Alkaline Phosphatase 48 (38-126) U/L Total Protein 6.6 (5.8-8.3) g/dL Albumin 3.3 (3.0-4.8) g/dL Globulin 3.3 gm/dL Albumin/Globulin Ratio 1.0 L (1.1-1.8) 09/15/17 09/15/17 09/15/17 Range/Units 19:00 19:00 16:42 WBC 6.5 (4.5-11.0) 10^3/ul RBC 3.90 (3.5-6.1) 10^6/uL Hgb 12.5 L (14.0-18.0) g/dL Hct 36.2 L (42.0-52.0) % MCV 92.8 (80.0-105.0) fl MCH 32.1 (25.0-35.0) pg MCHC 34.5 (31.0-37.0) g/dl RDW 13.8 (11.5-14.5) % Plt Count 107 L (120.0-450.0) 10^3/uL MPV 10.4 (7.0-11.0) fl Gran % 80.2 H (50.0-68.0) % Lymph % (Auto) 13.2 L (22.0-35.0) % [place] % (Auto) 6.4 H (1.0-6.0) % Eos % (Auto) 0.2 L (1.5-5.0) % Baso % (Auto) 0.0 (0.0-3.0) % Gran # 5.24 (1.4-6.5) Lymph # (Auto) 0.9 L (1.2-3.4) [place] # (Auto) 0.4 (0.1-0.6) Eos # (Auto) 0.0 (0.0-0.7) Baso # (Auto) 0.00 (0.0-2.0) K/mm3 Sodium 139 (132-148) mmol/L Potassium 3.9 (3.6-5.0) mmol/L Chloride 107 (98-107) mmol/L Carbon Dioxide 23 (21-33) mmol/L Anion Gap 13 (10-20) BUN 19 (7-21) mg/dL Creatinine 1.3 (0.8-1.5) mg/dl Est GFR ( Amer) > 60 Est GFR (Non-Af Amer) 56 POC Glucose (mg/dL) 107 (65-110) mg/dL Random Glucose 151 H (70-110) mg/dL Hemoglobin A1c (4.2-6.5) % Calcium 9.3 (8.4-10.5) mg/dL Phosphorus 2.3 L (2.5-4.5) mg/dL Magnesium 2.0 (1.7-2.2) mg/dL Total Bilirubin 1.6 H (0.2-1.3) mg/dL AST 56 (17-59) U/L ALT 49 (7-56) U/L Alkaline Phosphatase 43 (38-126) U/L Total Protein 6.7 (5.8-8.3) g/dL Albumin 3.5 (3.0-4.8) g/dL Globulin 3.2 gm/dL Albumin/Globulin Ratio 1.1 (1.1-1.8) 09/15/17 09/14/17 Range/Units 11:33 05:15 WBC (4.5-11.0) 10^3/ul RBC (3.5-6.1) 10^6/uL Hgb (14.0-18.0) g/dL Hct (42.0-52.0) % MCV (80.0-105.0) fl MCH (25.0-35.0) pg MCHC (31.0-37.0) g/dl RDW (11.5-14.5) % Plt Count (120.0-450.0) 10^3/uL MPV (7.0-11.0) fl Gran % (50.0-68.0) % Lymph % (Auto) (22.0-35.0) % [place] % (Auto) (1.0-6.0) % Eos % (Auto) (1.5-5.0) % Baso % (Auto) (0.0-3.0) % Gran # (1.4-6.5) Lymph # (Auto) (1.2-3.4) [place] # (Auto) (0.1-0.6) Eos # (Auto) (0.0-0.7) Baso # (Auto) (0.0-2.0) K/mm3 Sodium (132-148) mmol/L Potassium (3.6-5.0) mmol/L Chloride (98-107) mmol/L Carbon Dioxide (21-33) mmol/L Anion Gap (10-20) BUN (7-21) mg/dL Creatinine (0.8-1.5) mg/dl Est GFR ( Amer) Est GFR (Non-Af Amer) POC Glucose (mg/dL) 112 H (65-110) mg/dL Random Glucose (70-110) mg/dL Hemoglobin A1c 5.7 (4.2-6.5) % Calcium (8.4-10.5) mg/dL Phosphorus (2.5-4.5) mg/dL Magnesium (1.7-2.2) mg/dL Total Bilirubin (0.2-1.3) mg/dL AST (17-59) U/L ALT (7-56) U/L Alkaline Phosphatase (38-126) U/L Total Protein (5.8-8.3) g/dL Albumin (3.0-4.8) g/dL Globulin gm/dL Albumin/Globulin Ratio (1.1-1.8) Laboratory Results - last 24 hr 09/14/17 09/15/17 09/15/17 05:15 11:33 16:42 WBC RBC Hgb Hct MCV MCH MCHC RDW Plt Count MPV Gran % Lymph % (Auto) [place] % (Auto) Eos % (Auto) Baso % (Auto) Gran # Lymph # (Auto) [place] # (Auto) Eos # (Auto) Baso # (Auto) Sodium Potassium Chloride Carbon Dioxide Anion Gap BUN Creatinine Est GFR ( Amer) Est GFR (Non-Af Amer) POC Glucose (mg/dL) 112 H 107 Random Glucose Hemoglobin A1c 5.7 Calcium Phosphorus Magnesium Total Bilirubin AST ALT Alkaline Phosphatase Total Protein Albumin Globulin Albumin/Globulin Ratio 09/15/17 09/15/17 09/16/17 19:00 19:00 06:00 WBC 6.5 5.6 RBC 3.90 3.78 Hgb 12.5 L 12.1 L Hct 36.2 L 35.3 L MCV 92.8 93.4 MCH 32.1 32.0 MCHC 34.5 34.3 RDW 13.8 13.9 Plt Count 107 L 110 L MPV 10.4 10.8 Gran % 80.2 H 79.9 H Lymph % (Auto) 13.2 L 10.9 L [place] % (Auto) 6.4 H 9.0 H Eos % (Auto) 0.2 L 0.2 L Baso % (Auto) 0.0 0.0 Gran # 5.24 4.46 Lymph # (Auto) 0.9 L 0.6 L [place] # (Auto) 0.4 0.5 Eos # (Auto) 0.0 0.0 Baso # (Auto) 0.00 0.00 Sodium 139 Potassium 3.9 Chloride 107 Carbon Dioxide 23 Anion Gap 13 BUN 19 Creatinine 1.3 Est GFR ( Amer) > 60 Est GFR (Non-Af Amer) 56 POC Glucose (mg/dL) Random Glucose 151 H Hemoglobin A1c Calcium 9.3 Phosphorus 2.3 L Magnesium 2.0 Total Bilirubin 1.6 H AST 56 ALT 49 Alkaline Phosphatase 43 Total Protein 6.7 Albumin 3.5 Globulin 3.2 Albumin/Globulin Ratio 1.1 09/16/17 09/16/17 06:00 07:43 WBC RBC Hgb Hct MCV MCH MCHC RDW Plt Count MPV Gran % Lymph % (Auto) [place] % (Auto) Eos % (Auto) Baso % (Auto) Gran # Lymph # (Auto) [place] # (Auto) Eos # (Auto) Baso # (Auto) Sodium 139 Potassium 4.0 Chloride 108 H Carbon Dioxide 24 Anion Gap 11 BUN 15 Creatinine 1.1 Est GFR ( Amer) > 60 Est GFR (Non-Af Amer) > 60 POC Glucose (mg/dL) 126 H Random Glucose 138 H Hemoglobin A1c Calcium 9.1 Phosphorus 2.8 Magnesium 1.9 Total Bilirubin 1.7 H AST 52 ALT 48 Alkaline Phosphatase 48 Total Protein 6.6 Albumin 3.3 Globulin 3.3 Albumin/Globulin Ratio 1.0 L EKG/Cardiology Studies: Cardiology / EKG Studies 09/15/17 19:00 EKG [ELECTROCARDIOGRAM] Stat Comment: Reason For Exam: s/p code blue Fingerstick Blood Sugar Results: 127 Critical Care Progress Note - Nutrition Nutrition: Nutrition Category Date Time Status Heart Healthy Diet [DIET] Diets 09/14/17 Breakfast Ordered Assessment/Plan - Assessment and Plan (Free Text) Plan: 62M PMHx HTN and nephrolithiasis presents with aortic dissection, adam type B. No vascular intervention at this time, follow up CTA of chest in 6 months. Oral antihypertensives increased as per cardiology. CXR from this morning showed increased pulmonary congestion, Lasix 40 mg IV given once. Will wean off labetalol. Neuro: AAOx3 No deficits Cardio: Hemodynamically stable Oral antihypertensives increased Lisinopril added Maintain SBP <140 Echo demonstrates normal EF with LVH, see full report Wean off Labetalol drip Cardiology consulted Cardiovascular surgery consulted, no intervention Pulm: CXR shows pulmonary congestion, Lasix given Maintain O2 sat >90% GI: Protonix NPO Endo: Maintain euglycemia Nephro: IVF stopped, TIFFANIE resolved Maintain euvolemia Replenish electrolytes as needed Heme/ID: Afebrile, no leukocytosis Maintain normothermia Lionel, PGY-2 <Andrzej Dorado - Last Filed: 09/16/17 12:16> CCU Objective - Vital Signs / Intake & Output Vital Signs (Last 4 hours): Vital Signs Pulse BP 09/16/17 10:53 172/69 H 09/16/17 09:54 73 155/97 H 09/16/17 09:42 70 158/95 H Intake and Output (Last 8hrs): Intake & Output 09/15/17 09/16/17 09/16/17 22:59 06:59 14:59 Intake Total 3820 4460 Output Total 1650 1750 Balance 2170 2710 Weight 235 lb 9.6 oz Intake: IV 3100 4340 Left Antecubital 2100 2840 Right Antecubital 0 Oral 720 120 Output: Urine 1650 1750 Urine, Voided 1650 1750 Emesis 0 Other: # Bowel Movements 0 0 - Medications Active Medications: Active Medications Generic Name Dose Route Start Last Admin Trade Name Freq PRN Reason Stop Dose Admin Amlodipine Besylate 10 mg 09/16/17 10:00 09/16/17 09:42 Norvasc PO 10 mg DAILY RICKY Administration Hydralazine HCl 10 mg 09/16/17 04:30 Apresoline IVP Q6 PRN Systolic Blood Pressure Hydromorphone HCl 2 mg 09/15/17 07:24 Dilaudid IVP Q3H PRN Pain, moderate (4-7) Labetalol HCl 500 mg/ Sodium 500 mls @ 120 mls/hr 09/15/17 13:57 09/16/17 06: 30 Chloride IV 180 mg/hr .Q4H10M PRN 180 mls/hr TITRATE PER MD ORDER Administration Protocol Lisinopril 2.5 mg 09/16/17 10:00 09/16/17 09:54 Zestril PO 2.5 mg DAILY RICKY Administration Metoprolol Tartrate 50 mg 09/16/17 10:00 09/16/17 09:42 Lopressor PO 50 mg BID RICKY Administration Ondansetron HCl 4 mg 09/14/17 00:57 09/14/17 03:45 Zofran Inj IVP 4 mg Q6H PRN Administration Nausea/Vomiting Oxycodone/Acetaminophen 1 tab 09/15/17 07:41 Percocet 5/325 Mg Tab PO 09/18/17 07:42 Q4H PRN Pain, moderate (4-7) Pantoprazole Sodium 40 mg 09/17/17 06:00 Protonix Ec Tab PO 0600 [facility] - Patient Studies Lab Studies: Microbiology Studies 09/13/17 22:40 MRSA Culture (Admit) - Final Nose MRSA NOT DETECTED Lab Studies 09/16/17 09/16/17 09/16/17 Range/Units 07:43 06:00 06:00 WBC 5.6 (4.5-11.0) 10^3/ul RBC 3.78 (3.5-6.1) 10^6/uL Hgb 12.1 L (14.0-18.0) g/dL Hct 35.3 L (42.0-52.0) % MCV 93.4 (80.0-105.0) fl MCH 32.0 (25.0-35.0) pg MCHC 34.3 (31.0-37.0) g/dl RDW 13.9 (11.5-14.5) % Plt Count 110 L (120.0-450.0) 10^3/uL MPV 10.8 (7.0-11.0) fl Gran % 79.9 H (50.0-68.0) % Lymph % (Auto) 10.9 L (22.0-35.0) % [place] % (Auto) 9.0 H (1.0-6.0) % Eos % (Auto) 0.2 L (1.5-5.0) % Baso % (Auto) 0.0 (0.0-3.0) % Gran # 4.46 (1.4-6.5) Lymph # (Auto) 0.6 L (1.2-3.4) [place] # (Auto) 0.5 (0.1-0.6) Eos # (Auto) 0.0 (0.0-0.7) Baso # (Auto) 0.00 (0.0-2.0) K/mm3 Sodium 139 (132-148) mmol/L Potassium 4.0 (3.6-5.0) mmol/L Chloride 108 H (98-107) mmol/L Carbon Dioxide 24 (21-33) mmol/L Anion Gap 11 (10-20) BUN 15 (7-21) mg/dL Creatinine 1.1 (0.8-1.5) mg/dl Est GFR ( Amer) > 60 Est GFR (Non-Af Amer) > 60 POC Glucose (mg/dL) 126 H (65-110) mg/dL Random Glucose 138 H (70-110) mg/dL Hemoglobin A1c (4.2-6.5) % Calcium 9.1 (8.4-10.5) mg/dL Phosphorus 2.8 (2.5-4.5) mg/dL Magnesium 1.9 (1.7-2.2) mg/dL Total Bilirubin 1.7 H (0.2-1.3) mg/dL AST 52 (17-59) U/L ALT 48 (7-56) U/L Alkaline Phosphatase 48 (38-126) U/L Total Protein 6.6 (5.8-8.3) g/dL Albumin 3.3 (3.0-4.8) g/dL Globulin 3.3 gm/dL Albumin/Globulin Ratio 1.0 L (1.1-1.8) 09/15/17 09/15/17 09/15/17 Range/Units 19:00 19:00 16:42 WBC 6.5 (4.5-11.0) 10^3/ul RBC 3.90 (3.5-6.1) 10^6/uL Hgb 12.5 L (14.0-18.0) g/dL Hct 36.2 L (42.0-52.0) % MCV 92.8 (80.0-105.0) fl MCH 32.1 (25.0-35.0) pg MCHC 34.5 (31.0-37.0) g/dl RDW 13.8 (11.5-14.5) % Plt Count 107 L (120.0-450.0) 10^3/uL MPV 10.4 (7.0-11.0) fl Gran % 80.2 H (50.0-68.0) % Lymph % (Auto) 13.2 L (22.0-35.0) % [place] % (Auto) 6.4 H (1.0-6.0) % Eos % (Auto) 0.2 L (1.5-5.0) % Baso % (Auto) 0.0 (0.0-3.0) % Gran # 5.24 (1.4-6.5) Lymph # (Auto) 0.9 L (1.2-3.4) [place] # (Auto) 0.4 (0.1-0.6) Eos # (Auto) 0.0 (0.0-0.7) Baso # (Auto) 0.00 (0.0-2.0) K/mm3 Sodium 139 (132-148) mmol/L Potassium 3.9 (3.6-5.0) mmol/L Chloride 107 (98-107) mmol/L Carbon Dioxide 23 (21-33) mmol/L Anion Gap 13 (10-20) BUN 19 (7-21) mg/dL Creatinine 1.3 (0.8-1.5) mg/dl Est GFR ( Amer) > 60 Est GFR (Non-Af Amer) 56 POC Glucose (mg/dL) 107 (65-110) mg/dL Random Glucose 151 H (70-110) mg/dL Hemoglobin A1c (4.2-6.5) % Calcium 9.3 (8.4-10.5) mg/dL Phosphorus 2.3 L (2.5-4.5) mg/dL Magnesium 2.0 (1.7-2.2) mg/dL Total Bilirubin 1.6 H (0.2-1.3) mg/dL AST 56 (17-59) U/L ALT 49 (7-56) U/L Alkaline Phosphatase 43 (38-126) U/L Total Protein 6.7 (5.8-8.3) g/dL Albumin 3.5 (3.0-4.8) g/dL Globulin 3.2 gm/dL Albumin/Globulin Ratio 1.1 (1.1-1.8) 09/14/17 Range/Units 05:15 WBC (4.5-11.0) 10^3/ul RBC (3.5-6.1) 10^6/uL Hgb (14.0-18.0) g/dL Hct (42.0-52.0) % MCV (80.0-105.0) fl MCH (25.0-35.0) pg MCHC (31.0-37.0) g/dl RDW (11.5-14.5) % Plt Count (120.0-450.0) 10^3/uL MPV (7.0-11.0) fl Gran % (50.0-68.0) % Lymph % (Auto) (22.0-35.0) % [place] % (Auto) (1.0-6.0) % Eos % (Auto) (1.5-5.0) % Baso % (Auto) (0.0-3.0) % Gran # (1.4-6.5) Lymph # (Auto) (1.2-3.4) [place] # (Auto) (0.1-0.6) Eos # (Auto) (0.0-0.7) Baso # (Auto) (0.0-2.0) K/mm3 Sodium (132-148) mmol/L Potassium (3.6-5.0) mmol/L Chloride (98-107) mmol/L Carbon Dioxide (21-33) mmol/L Anion Gap (10-20) BUN (7-21) mg/dL Creatinine (0.8-1.5) mg/dl Est GFR ( Amer) Est GFR (Non-Af Amer) POC Glucose (mg/dL) (65-110) mg/dL Random Glucose (70-110) mg/dL Hemoglobin A1c 5.7 (4.2-6.5) % Calcium (8.4-10.5) mg/dL Phosphorus (2.5-4.5) mg/dL Magnesium (1.7-2.2) mg/dL Total Bilirubin (0.2-1.3) mg/dL AST (17-59) U/L ALT (7-56) U/L Alkaline Phosphatase (38-126) U/L Total Protein (5.8-8.3) g/dL Albumin (3.0-4.8) g/dL Globulin gm/dL Albumin/Globulin Ratio (1.1-1.8) Laboratory Results - last 24 hr 09/14/17 09/15/17 09/15/17 05:15 16:42 19:00 WBC 6.5 RBC 3.90 Hgb 12.5 L Hct 36.2 L MCV 92.8 MCH 32.1 MCHC 34.5 RDW 13.8 Plt Count 107 L MPV 10.4 Gran % 80.2 H Lymph % (Auto) 13.2 L [place] % (Auto) 6.4 H Eos % (Auto) 0.2 L Baso % (Auto) 0.0 Gran # 5.24 Lymph # (Auto) 0.9 L [place] # (Auto) 0.4 Eos # (Auto) 0.0 Baso # (Auto) 0.00 Sodium Potassium Chloride Carbon Dioxide Anion Gap BUN Creatinine Est GFR ( Amer) Est GFR (Non-Af Amer) POC Glucose (mg/dL) 107 Random Glucose Hemoglobin A1c 5.7 Calcium Phosphorus Magnesium Total Bilirubin AST ALT Alkaline Phosphatase Total Protein Albumin Globulin Albumin/Globulin Ratio 09/15/17 09/16/17 09/16/17 19:00 06:00 06:00 WBC 5.6 RBC 3.78 Hgb 12.1 L Hct 35.3 L MCV 93.4 MCH 32.0 MCHC 34.3 RDW 13.9 Plt Count 110 L MPV 10.8 Gran % 79.9 H Lymph % (Auto) 10.9 L [place] % (Auto) 9.0 H Eos % (Auto) 0.2 L Baso % (Auto) 0.0 Gran # 4.46 Lymph # (Auto) 0.6 L [place] # (Auto) 0.5 Eos # (Auto) 0.0 Baso # (Auto) 0.00 Sodium 139 139 Potassium 3.9 4.0 Chloride 107 108 H Carbon Dioxide 23 24 Anion Gap 13 11 BUN 19 15 Creatinine 1.3 1.1 Est GFR ( Amer) > 60 > 60 Est GFR (Non-Af Amer) 56 > 60 POC Glucose (mg/dL) Random Glucose 151 H 138 H Hemoglobin A1c Calcium 9.3 9.1 Phosphorus 2.3 L 2.8 Magnesium 2.0 1.9 Total Bilirubin 1.6 H 1.7 H AST 56 52 ALT 49 48 Alkaline Phosphatase 43 48 Total Protein 6.7 6.6 Albumin 3.5 3.3 Globulin 3.2 3.3 Albumin/Globulin Ratio 1.1 1.0 L 09/16/17 07:43 WBC RBC Hgb Hct MCV MCH MCHC RDW Plt Count MPV Gran % Lymph % (Auto) [place] % (Auto) Eos % (Auto) Baso % (Auto) Gran # Lymph # (Auto) [place] # (Auto) Eos # (Auto) Baso # (Auto) Sodium Potassium Chloride Carbon Dioxide Anion Gap BUN Creatinine Est GFR ( Amer) Est GFR (Non-Af Amer) POC Glucose (mg/dL) 126 H Random Glucose Hemoglobin A1c Calcium Phosphorus Magnesium Total Bilirubin AST ALT Alkaline Phosphatase Total Protein Albumin Globulin Albumin/Globulin Ratio EKG/Cardiology Studies: Cardiology / EKG Studies 09/15/17 19:00 EKG [ELECTROCARDIOGRAM] Stat Comment: Reason For Exam: s/p code blue Critical Care Progress Note - Nutrition Nutrition: Nutrition Category Date Time Status Heart Healthy Diet [DIET] Diets 09/14/17 Breakfast Ordered Attending/Attestation - Attestation I have personally seen and examined this patient.: Yes I have fully participated in the care of the patient.: Yes I have reviewed all pertinent clinical information: Yes Notes (Text): 09/16/17 12:12 The patient was seen and examined at the bedside. Patient care was discussed with resident and ICU team in MDR rounds. Medical records, lab studies, and imaging were reviewed and management issues were discussed and formulated. Last 24H events reviewed. Agree with above treatment plans as outlined in 's note with addition of the following: Acute Respiratory Insufficiency \ Hypoxemia \ Aortic Dissection \ Uncontrolled HTN -hemodynamic monitoring to maintain MAP>65 -increase anti-HTN meds as per Cardio team; wean off Labetalol drip -o2 supplementation to maintain Spo2>90 Pao2>60; currently comfortable on NC -CXR reviewed and B\L opacification noted, worse on Right Lower Lobe -will monitor fever curve and WBC; pt has no cough and remains afebrile; will hold off Abx at this time -f\u Bun\Cr and U\o; diuresis with Lasix -PO diet and aspiration precautions -f\u serial LFT; consider RUQ US if remain elevated -Vascular surgery team f\u -DVT \ PUD prophylaxis CCM f\u 25min
--- NOTE | 2017-09-16 10:59 | RAD ---
HISTORY: SOB COMPARISON: 09/13/2017 FINDINGS: LUNGS: There is a new infiltrate in the right lower lobe consistent with pneumonia PLEURA: No significant pleural effusion identified, no pneumothorax apparent. CARDIOVASCULAR: Normal. OSSEOUS STRUCTURES: No significant abnormalities. VISUALIZED UPPER ABDOMEN: Normal. OTHER FINDINGS: None. IMPRESSION: Right lower lobe pneumonia
[2017-09-16] MEDS ORDERED: LABETALOL IV PRN (17:37)
[2017-09-16] MEDS ORDERED: SODIUM CHLORIDE 0.9% IV PRN (17:37)
[2017-09-16] MEDS: LABETALOL IV PRN (19:24)
[2017-09-16] MEDS: SODIUM CHLORIDE 0.9% IV PRN (19:24)
--- NOTE | 2017-09-16 22:10 | PN ---
DATE: CRITICAL CARE PROGRESS NOTE SUBJECTIVE: This 62-year-old male remains in CCU, bed 7, where he was admitted for a type 2 dissection of his aorta and presented with acute chest pain and epigastric discomfort. At present, he is chest pain free, and is being treated with parenteral and oral antibiotics for accelerated hypertension. He is being followed by Dr. Beni Guo from Cardiology, who is advising a thallium stress test when stable, and review of 2-D echocardiogram revealed no evidence of left ventricular wall motion abnormality or valvular pathology. PHYSICAL EXAMINATION: VITAL SIGNS: At present, the patient had a temperature of 98.3, respirations 19, pulse 67, and blood pressure 172/69. Pulse ox 92%. HEENT: Head: Normocephalic, atraumatic. Eyes: No icterus. Ears: Clear. Throat: Noninjected. NECK: Supple. HEART: S1 and S2. LUNGS: Clear. ABDOMEN: Obese. EXTREMITIES: No edema. SKIN: Without rash. NEUROLOGICAL: Intact. PSYCHOLOGICAL: Alert. VASCULAR: Legs warm to touch. LABORATORY DATA: White count 5600, hemoglobin 12.1, hematocrit 35.3, platelets 110,000. Sodium 139, K 4.0, chloride 108, bicarb 24, BUN 15, creatinine 1.1, random blood sugar 138. Calcium normal of 9.1. Phosphorous normal of 2.8. Magnesium normal 1.9. Bilirubin 1.7, AST 52, ALT 48 and alk phos 48. IMPRESSION: A 62-year-old male with type 2 dissection of aorta, cleared by Cardiothoracic Surgery for a followup CTA in 6 months, and cardiothoracic surgeon Dr. Ruiz has no further plans for vascular intervention at this time. The patient continues to have blood pressure medication adjusted including IV hydralazine p.r.n. accelerated hypertension, metoprolol tartrate 50 mg p.o. b.i.d., Norvasc 10 mg p.o. daily, Protonix 40 mg p.o. daily, labetalol continues at 2 mg per minute IV, Zestril 5 mg p.o. daily, and Zofran 4 mg IV q. 6 hours p.r.n. pain. He will remain in intensive care until his blood pressures are regulated. He is ordered to have a heart-healthy soft bland diet. He continues with peripheral pulse assessment and antiembolism stockings as ordered, with aspiration precautions, and will have basic metabolic panel repeated in the a.m. When the patient is stabilized, he will be scheduled for a Lexiscan stress test. Greater than of 35 minutes was spent in the care management, review of x-rays, labs, orders and discussion of this patient's care with co-consultants in intensive care. All questions were answered. Janet Harding MD MTDHarry
[2017-09-17] MEDS: HYDROmorphone 2 mg/ml ISec IVP PRN (00:01)
[2017-09-17] MEDS: LABETALOL IV PRN (01:35)
[2017-09-17] MEDS: SODIUM CHLORIDE 0.9% IV PRN (01:35)
[2017-09-17] MEDS ORDERED: LABETALOL IV PRN (06:05)
[2017-09-17] MEDS ORDERED: SODIUM CHLORIDE 0.9% IV PRN (06:05)
[2017-09-17] MEDS: Pantoprazole 40 mg EC Tab PO SCH (06:19)
[2017-09-17 06:42] LABS: HEMOGLOBIN 12.1 g/dL (14.0-18.0); MEAN CELL VOLUME 94.2 fl (80.0-105.0); MEAN CORPUSCULAR HEMOGLOBIN 31.9 pg (25.0-35.0); MEAN CORPUSCULAR HGB CONC 33.9 g/dl (31.0-37.0); MEAN PLATELET VOLUME 11.1 fl (7.0-11.0); RBC 3.79 10^6/uL (3.5-6.1); RED CELL DISTRIBUTION WIDTH 13.8 % (11.5-14.5); WHITE BLOOD COUNT 4.9 10^3/ul (4.5-11.0)
[2017-09-17 07:21] LABS: BLOOD UREA NITROGEN 14 mg/dL (7-21); CALCIUM 9.1 mg/dL (8.4-10.5); GFR AFRICAN-AMERICAN > 60; GFR NON-AFRICAN AMERICAN > 60
--- NOTE | 2017-09-17 07:51 | CP.PCM.PN ---
Subjective - Date & Time of Evaluation Date of Evaluation: 09/17/17 Time of Evaluation: 07:00 - Subjective Subjective: Stable in CCU. No CP or SOB. Back on IV Labeolol!! V/S Noted. 140 - 160 sys yesterday PE: Lungs: clear Cor.: S1S2 Abd.: soft Ext.: no edema Neuro.: alert Labs today noted: Cr.= 1.1 ECG 09/14: RSR, PVCs, LVH, STTW changes Echo: NL LV with LVH, Mild MR and TR CXR: 09/16: RLL infiltrate Objective - Vital Signs/Intake and Output Vital Signs (last 24 hours): Temp Pulse Resp BP Pulse Ox 98.1 F 65 24 143/73 93 L 09/16/17 15:02 09/17/17 03:23 09/16/17 20:30 09/17/17 01:35 09/16/17 20:30 Intake and Output: 09/17/17 09/17/17 06:59 18:59 Intake Total 250 Balance 250 - Medications Medications: Current Medications Amlodipine Besylate (Norvasc) 10 mg PO DAILY [facility] Last Admin: 09/16/17 09:42 Dose: 10 mg Hydralazine HCl (Apresoline) 10 mg IVP Q6 PRN PRN Reason: Systolic Blood Pressure Last Admin: 09/16/17 16:32 Dose: 10 mg Hydromorphone HCl (Dilaudid) 2 mg IVP Q3H PRN PRN Reason: Pain, moderate (4-7) Last Admin: 09/17/17 00:01 Dose: 2 mg Labetalol HCl 1,500 mg/ Sodium (Chloride) 500 mls @ 40 mls/hr IV .[id number] PRN; Protocol; 2 MG/MIN PRN Reason: TITRATE PER MD ORDER Lisinopril (Zestril) 5 mg PO DAILY [facility] Metoprolol Tartrate (Lopressor) 50 mg PO BID [facility] Last Admin: 09/16/17 09:42 Dose: 50 mg Ondansetron HCl (Zofran Inj) 4 mg IVP Q6H PRN PRN Reason: Nausea/Vomiting Last Admin: 09/14/17 03:45 Dose: 4 mg Oxycodone/Acetaminophen (Percocet 5/325 Mg Tab) 1 tab PO Q4H PRN PRN Reason: Pain, moderate (4-7) Stop: 09/18/17 07:42 Pantoprazole Sodium (Protonix Ec Tab) 40 mg PO 0600 RICKY Last Admin: 09/17/17 06:19 Dose: 40 mg - Labs Labs: 09/17/17 05:45 09/17/17 05:45 PT 12.0 SECONDS (9.4-12.5) 09/13/17 18:10 INR 1.05 (0.93-1.08) 09/13/17 18:10 APTT 30.9 Seconds (25.1-36.5) 09/13/17 18:10 Assessment and Plan - Assessment and Plan (Free Text) Assessment: Chest and YFN pain/Distal aortic dissection (Type B) HBP RLLL infiltrate on CXR Acute on chronic kidney disease Renal Stones Abnormal ECG Plan: As per Dr Harding, Vascular Surgery, Intensivists, Medical Residents. PO antihypertensives and wean off Labetolol now. Increase lisinopril to 10/ daily and increase metoprolol to 75 BID Titrate BP meds as needed. F/U RLL infiltrate on CXR PO KCL Tel bed. OOB/PT D/C IVF When stable> IVD nuclear stress test Monitor: I/O, renal fx., labs, sats., BPs, etc. Case D/W his bedside nurse. Will sign off at this point. Reconsult if necessary once out of CCU.
--- NOTE | 2017-09-17 10:25 | RAD ---
HISTORY: fluids COMPARISON: 09/16/2017 chest x-ray FINDINGS: LUNGS: The right lower lobe consolidation compatible with infiltrate (and/or atelectasis is similar-appearing.) trace left basal infiltrate and/or atelectasis also [id number] PLEURA: Right pleural effusion small -similar. Small left pleural effusion-similar No pneumothorax apparent. CARDIOVASCULAR: Mild cardiomegaly. Tortuous and prominent thoracic aorta and similar-appearing OSSEOUS STRUCTURES: Thoracic spondylosis and bilateral shoulder arthrosis VISUALIZED UPPER ABDOMEN: Normal. OTHER FINDINGS: None. IMPRESSION: Cardiomegaly and prominent thoracic aorta. -similar-appearing Bibasilar infiltrates (right greater than left) with small bilateral pleural effusions a-right greater than left -similar-appearing
--- NOTE | 2017-09-17 10:49 | CP.CCUPN ---
<Addy Aranda - Last Filed: 09/17/17 10:49> CCU Subjective - Physician Review Subjective (Free Text): Patient seen and evaluated bedside, no acute issues overnight. Patient denies chest pain, shortness of breath, or any other complaints at this time. 09/17/17 10:48 CCU Objective - Vital Signs / Intake & Output Vital Signs (Last 4 hours): Vital Signs Pulse BP 09/17/17 08:26 62 172/91 H 09/17/17 08:25 62 172/91 H Intake and Output (Last 8hrs): Intake & Output 09/16/17 09/17/17 09/17/17 22:59 06:59 14:59 Intake Total 250 Balance 250 Intake: IV 250 - Physical Exam Head: Positive for: Atraumatic, Normocephalic Pupils: Positive for: PERRL Extroacular Muscles: Positive for: EOMI Conjunctiva: Positive for: Normal Mouth: Positive for: Moist Mucous Membranes Neck: Positive for: Normal Range of Motion Respiratory/Chest: Positive for: Clear to Auscultation, Respiratory Distress. Negative for: Accessory Muscle Use Cardiovascular: Positive for: Regular Rate and Rhythm, Normal S1, S2. Negative for: Murmurs Abdomen: Positive for: Normal Bowel Sounds. Negative for: Tenderness, Distention Back: Positive for: Normal Inspection Upper Extremity: Positive for: Normal Inspection. Negative for: Cyanosis, Edema Lower Extremity: Positive for: Normal Inspection. Negative for: Edema Neurological: Positive for: GCS=15, CN II-XII Intact, Speech Normal Skin: Positive for: Warm, Dry, Normal Color. Negative for: Rashes Psychiatric: Positive for: Alert, Oriented x 3, Normal Insight, Normal Concentration - Medications Active Medications: Active Medications Generic Name Dose Route Start Last Admin Trade Name Freq PRN Reason Stop Dose Admin Amlodipine Besylate 10 mg 09/16/17 10:00 09/17/17 08:25 Norvasc PO 10 mg DAILY [facility] Administration Hydralazine HCl 10 mg 09/16/17 04:30 09/16/17 16:32 Apresoline IVP 10 mg Q6 PRN Administration Systolic Blood Pressure Hydromorphone HCl 2 mg 09/15/17 07:24 09/17/17 00:01 Dilaudid IVP 2 mg Q3H PRN Administration Pain, moderate (4-7) Lisinopril 5 mg 09/17/17 10:00 09/17/17 08:25 Zestril PO 5 mg BID RICKY Administration Metoprolol Tartrate 75 mg 09/17/17 10:00 09/17/17 08:26 Lopressor PO 75 mg BID RICKY Administration Ondansetron HCl 4 mg 09/14/17 00:57 09/14/17 03:45 Zofran Inj IVP 4 mg Q6H PRN Administration Nausea/Vomiting Oxycodone/Acetaminophen 1 tab 09/15/17 07:41 Percocet 5/325 Mg Tab PO 09/18/17 07:42 Q4H PRN Pain, moderate (4-7) Pantoprazole Sodium 40 mg 09/17/17 06:00 09/17/17 06:19 Protonix Ec Tab PO 40 mg 0600 RICKY Administration - Patient Studies Lab Studies: Lab Studies 09/17/17 09/17/17 09/17/17 Range/Units 07:52 05:45 05:45 WBC 4.9 (4.5-11.0) 10^3/ul RBC 3.79 (3.5-6.1) 10^6/uL Hgb 12.1 L (14.0-18.0) g/dL Hct 35.7 L (42.0-52.0) % MCV 94.2 (80.0-105.0) fl MCH 31.9 (25.0-35.0) pg MCHC 33.9 (31.0-37.0) g/dl RDW 13.8 (11.5-14.5) % Plt Count 148 (120.0-450.0) 10^3/uL MPV 11.1 H (7.0-11.0) fl Sodium (132-148) mmol/L Potassium (3.6-5.0) mmol/L Chloride (98-107) mmol/L Carbon Dioxide (21-33) mmol/L Anion Gap (10-20) BUN (7-21) mg/dL Creatinine (0.8-1.5) mg/dl Est GFR ( Amer) Est GFR (Non-Af Amer) POC Glucose (mg/dL) 114 H (65-110) mg/dL Random Glucose (70-110) mg/dL Calcium (8.4-10.5) mg/dL Phosphorus 3.8 (2.5-4.5) mg/dL Magnesium 2.0 (1.7-2.2) mg/dL 09/17/17 09/16/17 09/16/17 Range/Units 05:45 21:38 16:50 WBC (4.5-11.0) 10^3/ul RBC (3.5-6.1) 10^6/uL Hgb (14.0-18.0) g/dL Hct (42.0-52.0) % MCV (80.0-105.0) fl MCH (25.0-35.0) pg MCHC (31.0-37.0) g/dl RDW (11.5-14.5) % Plt Count (120.0-450.0) 10^3/uL MPV (7.0-11.0) fl Sodium 141 (132-148) mmol/L Potassium 3.5 L (3.6-5.0) mmol/L Chloride 107 (98-107) mmol/L Carbon Dioxide 25 (21-33) mmol/L Anion Gap 13 (10-20) BUN 14 (7-21) mg/dL Creatinine 1.1 (0.8-1.5) mg/dl Est GFR ( Amer) > 60 Est GFR (Non-Af Amer) > 60 POC Glucose (mg/dL) 117 H 109 (65-110) mg/dL Random Glucose 134 H (70-110) mg/dL Calcium 9.1 (8.4-10.5) mg/dL Phosphorus (2.5-4.5) mg/dL Magnesium (1.7-2.2) mg/dL 09/16/17 Range/Units 11:55 WBC (4.5-11.0) 10^3/ul RBC (3.5-6.1) 10^6/uL Hgb (14.0-18.0) g/dL Hct (42.0-52.0) % MCV (80.0-105.0) fl MCH (25.0-35.0) pg MCHC (31.0-37.0) g/dl RDW (11.5-14.5) % Plt Count (120.0-450.0) 10^3/uL MPV (7.0-11.0) fl Sodium (132-148) mmol/L Potassium (3.6-5.0) mmol/L Chloride (98-107) mmol/L Carbon Dioxide (21-33) mmol/L Anion Gap (10-20) BUN (7-21) mg/dL Creatinine (0.8-1.5) mg/dl Est GFR ( Amer) Est GFR (Non-Af Amer) POC Glucose (mg/dL) 151 H (65-110) mg/dL Random Glucose (70-110) mg/dL Calcium (8.4-10.5) mg/dL Phosphorus (2.5-4.5) mg/dL Magnesium (1.7-2.2) mg/dL Laboratory Results - last 24 hr 09/16/17 09/16/17 09/16/17 11:55 16:50 21:38 WBC RBC Hgb Hct MCV MCH MCHC RDW Plt Count MPV Sodium Potassium Chloride Carbon Dioxide Anion Gap BUN Creatinine Est GFR ( Amer) Est GFR (Non-Af Amer) POC Glucose (mg/dL) 151 H 109 117 H Random Glucose Calcium Phosphorus Magnesium 09/17/17 09/17/17 09/17/17 05:45 05:45 05:45 WBC 4.9 RBC 3.79 Hgb 12.1 L Hct 35.7 L MCV 94.2 MCH 31.9 MCHC 33.9 RDW 13.8 Plt Count 148 MPV 11.1 H Sodium 141 Potassium 3.5 L Chloride 107 Carbon Dioxide 25 Anion Gap 13 BUN 14 Creatinine 1.1 Est GFR ( Amer) > 60 Est GFR (Non-Af Amer) > 60 POC Glucose (mg/dL) Random Glucose 134 H Calcium 9.1 Phosphorus 3.8 Magnesium 2.0 09/17/17 07:52 WBC RBC Hgb Hct MCV MCH MCHC RDW Plt Count MPV Sodium Potassium Chloride Carbon Dioxide Anion Gap BUN Creatinine Est GFR ( Amer) Est GFR (Non-Af Amer) POC Glucose (mg/dL) 114 H Random Glucose Calcium Phosphorus Magnesium Fingerstick Blood Sugar Results: 127 Review of Systems - Cardiovascular Cardiovascular: absent: Chest Pain, Dyspnea - Respiratory Respiratory: absent: Cough, Dyspnea, Wheezing, Pain on Inspiration - Gastrointestinal Gastrointestinal: absent: Abdominal Pain, Diarrhea, Vomiting Critical Care Progress Note - Nutrition Nutrition: Nutrition Category Date Time Status Heart Healthy Diet [DIET] Diets 09/14/17 Breakfast Ordered Assessment/Plan - Assessment and Plan (Free Text) Assessment: 62M PMHx HTN and nephrolithiasis presents with aortic dissection, adam type B. No vascular intervention at this time, follow up CTA of chest in 6 months. Oral antihypertensives increased as per cardiology. Patients blood pressure monitored, will wean of labetolol drip. Plan: Neuro: AAOx3 No deficits Cardio: Hemodynamically stable Metoprolol 75mg Lisinopril 5 BID Maintain SBP <140 DC labetolol drip Cardiology consulted Cardiovascular surgery consulted, no intervention possible thallium stress per cardio one stable Pulm: Lasix given, repeat chest xray pending Maintain O2 sat >90% GI: Protonix HHD Endo: Maintain euglycemia Nephro: Maintain euvolemia Replenish electrolytes as needed mag and phos pending Heme/ID: Afebrile, no leukocytosis Maintain normothermia <Andrzej Dorado - Last Filed: 09/17/17 14:12> CCU Objective - Vital Signs / Intake & Output Vital Signs (Last 4 hours): Vital Signs Temp Pulse Resp BP Pulse Ox 09/17/17 13:41 170/100 H 09/17/17 12:00 98.7 F 09/17/17 11:45 62 25 H 90 L 09/17/17 11:30 66 44 H 157/81 H 92 L 09/17/17 11:15 61 20 92 L 09/17/17 11:00 63 18 150/69 93 L 09/17/17 10:45 71 20 90 L 09/17/17 10:30 60 20 144/71 93 L 09/17/17 10:15 58 L 91 L Intake and Output (Last 8hrs): Intake & Output 09/16/17 09/17/17 09/17/17 22:59 06:59 14:59 Intake Total 250 Balance 250 Weight 235 lb Intake: IV 250 - Medications Active Medications: Active Medications Generic Name Dose Route Start Last Admin Trade Name Freq PRN Reason Stop Dose Admin Amlodipine Besylate 10 mg 09/16/17 10:00 09/17/17 13:28 Norvasc PO Not Given DAILY [facility]ICK[facility] Hydralazine HCl 10 mg 09/16/17 04:30 09/16/17 16:32 Apresoline IVP 10 mg Q6 PRN Administration Systolic Blood Pressure Hydromorphone HCl 2 mg 09/15/17 07:24 09/17/17 00:01 Dilaudid IVP 2 mg Q3H PRN Administration Pain, moderate (4-7) Lisinopril 5 mg 09/17/17 10:00 09/17/17 13:28 Zestril PO Not Given BID [facility] Metoprolol Tartrate 75 mg 09/17/17 10:00 09/17/17 13:27 Lopressor PO Not Given BID RICKY Minoxidil 5 mg 09/17/17 12:45 09/17/17 13:41 Minoxidil PO 5 mg DAILY [facility] Administration Ondansetron HCl 4 mg 09/14/17 00:57 09/14/17 03:45 Zofran Inj IVP 4 mg Q6H PRN Administration Nausea/Vomiting Oxycodone/Acetaminophen 1 tab 09/15/17 07:41 Percocet 5/325 Mg Tab PO 09/18/17 07:42 Q4H PRN Pain, moderate (4-7) Pantoprazole Sodium 40 mg 09/17/17 06:00 09/17/17 06:19 Protonix Ec Tab PO 40 mg 0600 RICKY Administration - Patient Studies Lab Studies: Lab Studies 09/17/17 09/17/17 09/17/17 Range/Units 11:29 07:52 05:45 WBC (4.5-11.0) 10^3/ul RBC (3.5-6.1) 10^6/uL Hgb (14.0-18.0) g/dL Hct (42.0-52.0) % MCV (80.0-105.0) fl MCH (25.0-35.0) pg MCHC (31.0-37.0) g/dl RDW (11.5-14.5) % Plt Count (120.0-450.0) 10^3/uL MPV (7.0-11.0) fl Sodium (132-148) mmol/L Potassium (3.6-5.0) mmol/L Chloride (98-107) mmol/L Carbon Dioxide (21-33) mmol/L Anion Gap (10-20) BUN (7-21) mg/dL Creatinine (0.8-1.5) mg/dl Est GFR ( Amer) Est GFR (Non-Af Amer) POC Glucose (mg/dL) 102 114 H (65-110) mg/dL Random Glucose (70-110) mg/dL Calcium (8.4-10.5) mg/dL Phosphorus 3.8 (2.5-4.5) mg/dL Magnesium 2.0 (1.7-2.2) mg/dL 09/17/17 09/17/17 09/16/17 Range/Units 05:45 05:45 21:38 WBC 4.9 (4.5-11.0) 10^3/ul RBC 3.79 (3.5-6.1) 10^6/uL Hgb 12.1 L (14.0-18.0) g/dL Hct 35.7 L (42.0-52.0) % MCV 94.2 (80.0-105.0) fl MCH 31.9 (25.0-35.0) pg MCHC 33.9 (31.0-37.0) g/dl RDW 13.8 (11.5-14.5) % Plt Count 148 (120.0-450.0) 10^3/uL MPV 11.1 H (7.0-11.0) fl Sodium 141 (132-148) mmol/L Potassium 3.5 L (3.6-5.0) mmol/L Chloride 107 (98-107) mmol/L Carbon Dioxide 25 (21-33) mmol/L Anion Gap 13 (10-20) BUN 14 (7-21) mg/dL Creatinine 1.1 (0.8-1.5) mg/dl Est GFR ( Amer) > 60 Est GFR (Non-Af Amer) > 60 POC Glucose (mg/dL) 117 H (65-110) mg/dL Random Glucose 134 H (70-110) mg/dL Calcium 9.1 (8.4-10.5) mg/dL Phosphorus (2.5-4.5) mg/dL Magnesium (1.7-2.2) mg/dL 09/16/17 09/16/17 Range/Units 16:50 11:55 WBC (4.5-11.0) 10^3/ul RBC (3.5-6.1) 10^6/uL Hgb (14.0-18.0) g/dL Hct (42.0-52.0) % MCV (80.0-105.0) fl MCH (25.0-35.0) pg MCHC (31.0-37.0) g/dl RDW (11.5-14.5) % Plt Count (120.0-450.0) 10^3/uL MPV (7.0-11.0) fl Sodium (132-148) mmol/L Potassium (3.6-5.0) mmol/L Chloride (98-107) mmol/L Carbon Dioxide (21-33) mmol/L Anion Gap (10-20) BUN (7-21) mg/dL Creatinine (0.8-1.5) mg/dl Est GFR ( Amer) Est GFR (Non-Af Amer) POC Glucose (mg/dL) 109 151 H (65-110) mg/dL Random Glucose (70-110) mg/dL Calcium (8.4-10.5) mg/dL Phosphorus (2.5-4.5) mg/dL Magnesium (1.7-2.2) mg/dL Laboratory Results - last 24 hr 09/16/17 09/16/17 09/16/17 11:55 16:50 21:38 WBC RBC Hgb Hct MCV MCH MCHC RDW Plt Count MPV Sodium Potassium Chloride Carbon Dioxide Anion Gap BUN Creatinine Est GFR ( Amer) Est GFR (Non-Af Amer) POC Glucose (mg/dL) 151 H 109 117 H Random Glucose Calcium Phosphorus Magnesium 09/17/17 09/17/17 09/17/17 05:45 05:45 05:45 WBC 4.9 RBC 3.79 Hgb 12.1 L Hct 35.7 L MCV 94.2 MCH 31.9 MCHC 33.9 RDW 13.8 Plt Count 148 MPV 11.1 H Sodium 141 Potassium 3.5 L Chloride 107 Carbon Dioxide 25 Anion Gap 13 BUN 14 Creatinine 1.1 Est GFR ( Amer) > 60 Est GFR (Non-Af Amer) > 60 POC Glucose (mg/dL) Random Glucose 134 H Calcium 9.1 Phosphorus 3.8 Magnesium 2.0 09/17/17 09/17/17 07:52 11:29 WBC RBC Hgb Hct MCV MCH MCHC RDW Plt Count MPV Sodium Potassium Chloride Carbon Dioxide Anion Gap BUN Creatinine Est GFR ( Amer) Est GFR (Non-Af Amer) POC Glucose (mg/dL) 114 H 102 Random Glucose Calcium Phosphorus Magnesium Critical Care Progress Note - Nutrition Nutrition: Nutrition Category Date Time Status Heart Healthy Diet [DIET] Diets 09/14/17 Breakfast Ordered Attending/Attestation - Attestation I have personally seen and examined this patient.: Yes I have fully participated in the care of the patient.: Yes I have reviewed all pertinent clinical information: Yes Notes (Text): 09/17/17 14:11 The patient was seen and examined at the bedside. Patient care was discussed with resident and ICU team in MDR rounds. Medical records, lab studies, and imaging were reviewed and management issues were discussed and formulated. Last 24H events reviewed. Agree with above treatment plans as outlined in 's note with addition of the following: Acute Respiratory Insufficiency \ Hypoxemia \ Aortic Dissection \ Uncontrolled HTN -hemodynamic monitoring to maintain MAP>65 -increase anti-HTN meds as per Cardio team; wean off Labetalol drip; add minoxidil -o2 supplementation to maintain Spo2>90 Pao2>60; currently comfortable on NC -CXR repeat today -will monitor fever curve and WBC; pt has no cough and remains afebrile; will hold off Abx at this time -f\u Bun\Cr and U\o; diuresis with Lasix -PO diet and aspiration precautions -f\u serial LFT; consider RUQ US if remain elevated -Vascular surgery team f\u -DVT \ PUD prophylaxis CCM f\u 25min
[2017-09-17] MEDS: Nitroglycerin 2% Ointment Foilpak UD TOP PRN (14:49)
[2017-09-17] MEDS ORDERED: Potassium Chloride 20 mEq ER Tab PO ONE (16:05)
--- NOTE | 2017-09-17 21:29 | PN ---
DATE: 09/17/2017 CRITICAL CARE PROGRESS NOTE SUBJECTIVE: This 62-year-old male was examined in the CCU, bed #7. This case was reviewed in detail with himself; nurse Mirtha Evans, registered nurse; Dr. Beni Guo from Cardiology; and Dr. Andrzej Dorado, it applications manager. The patient was admitted with a type B aortic dissection. He had accelerated hypertension and is having blood pressure medication adjusted and was cleared by Cardiothoracic Surgery for continued medical management of this issue. Cardiothoracic Surgery had declined any consideration of the endovascular intervention and this was then reviewed with both the it applications manager and Dr. Guo as well. At present, the patient is denying any fever, chills, chest pain or shortness of breath and remains in a normal sinus rhythm on the secured entrance monitor. PHYSICAL EXAMINATION VITAL SIGNS: His temperature is 98.7, respirations are 20, pulse 62, and blood pressure 170/100 with a pulse ox of 92% on room air. HEENT: Head: Normocephalic, atraumatic. Eyes: No icterus. Ears: Clear. Throat: Noninjected. NECK: Supple. HEART: Regular S1 and S2. LUNGS: Clear. ABDOMEN: Obese. EXTREMITIES: No edema. SKIN: Without rash. NEUROLOGICAL: Intact. PSYCHOLOGICAL: Alert. VASCULAR: Legs warm to touch. LABORATORY DATA: White count 4900, hemoglobin 12.1, hematocrit 35.7, platelets 148,000. Sodium 141, K 3.5, chloride 107, bicarb 25, BUN 14, creatinine 1.1, random blood sugar 102. Calcium normal 9.1. Phosphorous normal 3.8. Magnesium level normal 2.0. IMPRESSION: A 62-year-old male with type B aortic dissection; accelerated hypertension; and acute renal insufficiency, resolved with obesity and electrocardiogram changes for which the patient will need a stress test when medically stable. Case as discussed with Cardiology and Intensive Care, we will continue treatment with antiembolism stockings, every shift monitoring of peripheral pulses, continue heart-healthy diet, Zestril 5 mg p.o. b.i.d., Protonix 40 mg p.o. daily, Norvasc 10 mg p.o. daily, nitroglycerin 1 inch to chest wall q. 4 hours p.r.n. accelerated hypertension if systolic blood pressure is greater than 160 or diastolic blood pressure is greater than 100, minoxidil 5 mg p.o. daily, Lopressor 75 mg p.o. b.i.d. The patient was given Lasix 40 mg IV x1 dose, and is ordered to have hydralazine 10 mg IV q. 6 hours p.r.n. accelerated hypertension. He will be ordered to have p.o. potassium. Repeat basic metabolic panel in a.m. Greater than of 35 minutes was spent in the care management, review of x-rays, labs, medications and orders for this patient in intensive care today. All questions were answered. Janet Harding MD MTDD
[2017-09-18] MEDS: HYDROmorphone 2 mg/ml ISec IVP PRN (03:00)
[2017-09-18] MEDS: Pantoprazole 40 mg EC Tab PO SCH (05:45)
[2017-09-18] MEDS: Nitroglycerin 2% Ointment Foilpak UD TOP PRN (05:50)
[2017-09-18 07:21] LABS: BLOOD UREA NITROGEN 19 mg/dL (7-21); CALCIUM 9.7 mg/dL (8.4-10.5); GFR AFRICAN-AMERICAN > 60; GFR NON-AFRICAN AMERICAN > 60
[2017-09-18 08:42] LABS: EOS # 0.1 (0.0-0.7); EOS % 0.9 % (1.5-5.0); GRAN # 3.74 (1.4-6.5); GRAN % 69.7 % (50.0-68.0); HEMOGLOBIN 13.6 g/dL (14.0-18.0); LYMPH # 0.9 (1.2-3.4); LYMPH % 17.5 % (22.0-35.0); MEAN CORPUSCULAR HEMOGLOBIN 32.7 pg (25.0-35.0); MEAN CORPUSCULAR HGB CONC 34.8 g/dl (31.0-37.0); MEAN PLATELET VOLUME 10.6 fl (7.0-11.0); MONO # 0.6 (0.1-0.6); MONO % 11.9 % (1.0-6.0); RBC 4.16 10^6/uL (3.5-6.1); RED CELL DISTRIBUTION WIDTH 13.5 % (11.5-14.5); WHITE BLOOD COUNT 5.4 10^3/ul (4.5-11.0)
[2017-09-18 08:48] LABS: ALBUMIN 3.7 g/dL (3.0-4.8); ALT/SGPT 58 U/L (7-56); AST/SGOT 54 U/L (17-59)
[2017-09-18] MEDS ORDERED: Potassium Chloride 20 mEq ER Tab PO STA (09:48)
[2017-09-18] MEDS ORDERED: Gadodiamide 287 MG/ML VIAL (15ML) IV ONE (11:14)
[2017-09-18] MEDS: Potassium Chloride 20 mEq ER Tab PO SCH ×2 (12:16→17:28)
--- NOTE | 2017-09-18 12:53 | PN ---
DATE: 09/18/2017 SUBJECTIVE: The patient is seen lying in bed in the CCU. He denies any chest or back pain. His blood pressure control has been somewhat erratic. CURRENT MEDICATIONS: Include hydralazine p.r.n., Dilaudid p.r.n., metoprolol 75 mg b.i.d., minoxidil 5 mg daily, Norvasc 10 mg daily, Protonix, Zestril 5 mg b.i.d. OBJECTIVE: GENERAL: He is an overweight middle-aged man, who appears in no distress. VITAL SIGNS: His blood pressure is 180/80 with pulse of 76 and sinus, respirations are 16. He is afebrile. HEENT: No JVD. CHEST: A few scattered rhonchi. HEART: PMI displaced laterally with systolic murmur in the left sternal border. ABDOMEN: Soft, nontender, normoactive bowel sounds. EXTREMITIES: No edema. DIAGNOSTIC DATA: Potassium 3.8, BUN and creatinine 19 and 1.2. Hemoglobin and hematocrit 13.6 and 39.1 with a white count of 5.4, platelet count of 202,000. IMPRESSION: 1. Type B aortic dissection, clinically stable at the present time. 2. Poorly controlled hypertension. 3. Rest of problems as noted. RECOMMENDATIONS: Intensified beta-kendal therapy is advised as well as additional antihypertensive agents as needed. From a cardiac standpoint, he appears stable for transfer out of the CCU at this time. We will follow along as needed and arrange for eventual stress test as well. Sergio Millan MD
--- NOTE | 2017-09-18 20:27 | PN ---
DATE: 09/18/2017 SUBJECTIVE: This 62-year-old male was examined in the critical care unit bed #7 in the presence of his and this case was reviewed in detail with nurse, Waleska Winter, registered nurse. The patient was admitted with a type B aortic dissection and at present is having antihypertensive medications adjusted and is being followed by Cardiology, Cardiothoracic Surgery, and I have placed a consultation with Dr. Nestor Christian from Interventional Radiology. At present, the patient was out of bed to chair, denying any fever, chills, chest pain, or shortness of breath. He is voiding clear yellow urine and denying any claudication. PHYSICAL EXAMINATION: VITAL SIGNS: He is in a normal sinus rhythm on the cardiac cath lab technologist. His temperature is 99.5, respirations 16, pulse 78, blood pressure 144/66, pulse ox 95% room air. Urine output yesterday was 1750. HEENT: Head: Normocephalic, atraumatic. Eyes: No icterus. Ears: Clear. Throat: Noninjected. NECK: Supple. HEART: Regular, S1 and S2. LUNGS: Clear. ABDOMEN: Obese. EXTREMITIES: No edema. SKIN: Without rash. NEUROLOGIC: Intact. PSYCHOLOGIC: Alert. VASCULAR: Legs warm to touch. LABORATORY DATA: White count 5400, hemoglobin 13.6, hematocrit 39.1, platelets 202,000. PT/INR 1.05, PTT 30.9. Sodium 139, K 3.8, chloride 102, and bicarb 27. BUN 19 and creatinine 1.2. Random blood sugar 104. Calcium 9.7. Bilirubin 1.6, AST 54, ALT 58, alk phos 67. MRSA not detected from nares. IMPRESSION: This is a 62-year-old male admitted with a type B dissection of his aorta in the setting of accelerated hypertension, obesity, and history of noncompliance with diet, medication, and medical followup in his past. PLAN: The plan at present is to continue hydralazine 10 mg IV every 6 hours p.r.n. accelerated hypertension. He is ordered to have Lasix 20 mg IV every 12 hours, potassium chloride 20 mEq p.o. b.i.d., Lopressor 100 mg p.o. b.i.d., minoxidil 5 mg p.o. daily, nitroglycerin 1 inch to chest wall every 4 hours p.r.n. accelerated hypertension if systolic blood pressure greater than 160 or diastolic blood pressure greater than 100, Norvasc 10 mg p.o. daily, Protonix 40 mg p.o. at bedtime, Zestril 5 mg p.o. b.i.d., and Zofran 4 mg IV every 6 hours p.r.n. nausea and vomiting. The patient is ordered to have a heart-healthy soft bland diet. He remains on peripheral pulse assessment. He is ordered to have antiembolism stockings and will have a basic metabolic panel repeated in the a.m. The plan is for this patient to have a cardiac stress test prior to discharge and I have asked Dr. Nestor Christian from Interventional Radiology to review his x-rays and evaluate the patient from a vascular standpoint as well. Greater than 35 minutes was spent in the care management, review of labs, orders, x-rays, outlining of medication and orders, and discussion of this patient's case with himself, , and co-consultants. All questions were answered. Janet Harding MD MTDHarry
[2017-09-19] MEDS: Pantoprazole 40 mg EC Tab PO SCH (05:50)
[2017-09-19] MEDS: Nitroglycerin 2% Ointment Foilpak UD TOP PRN (06:51)
[2017-09-19 07:44] LABS: BLOOD UREA NITROGEN 23 mg/dL (7-21); CALCIUM 9.7 mg/dL (8.4-10.5); GFR AFRICAN-AMERICAN > 60; GFR NON-AFRICAN AMERICAN > 60
--- NOTE | 2017-09-19 08:24 | CP.PCM.PN ---
Subjective - Date & Time of Evaluation Date of Evaluation: 09/19/17 Time of Evaluation: 07:00 - Subjective Subjective: Stable in CCU. No CP or SOB. V/S Noted. BP elevated this AM PE: Lungs: clear Cor.: S1S2 Abd.: soft Ext.: no edema Neuro.: alert Labs 09/18 noted: Cr.= 1.1 ECG 09/14: RSR, PVCs, LVH, STTW changes Echo: NL LV with LVH, Mild MR and TR CXR: 09/16: RLL infiltrate Objective - Vital Signs/Intake and Output Vital Signs (last 24 hours): Temp Pulse Resp BP Pulse Ox 98.6 F 90 12 169/82 H 80 L 09/19/17 04:00 09/19/17 06:00 09/19/17 04:04 09/19/17 04:26 09/18/17 22:36 Intake and Output: 09/19/17 09/19/17 06:59 18:59 Intake Total 250 Output Total 650 Balance -400 - Medications Medications: Current Medications Amlodipine Besylate (Norvasc) 10 mg PO DAILY [facility] Last Admin: 09/18/17 09:07 Dose: 10 mg Furosemide (Lasix) 20 mg PO Q12H [facility] Last Admin: 09/18/17 22:39 Dose: 20 mg Hydralazine HCl (Apresoline) 10 mg IVP Q6 PRN PRN Reason: Systolic Blood Pressure Last Admin: 09/19/17 04:26 Dose: 10 mg Lisinopril (Zestril) 5 mg PO BID [facility] Last Admin: 09/18/17 17:30 Dose: 5 mg Metoprolol Tartrate (Lopressor) 100 mg PO BID [facility] Last Admin: 09/18/17 17:29 Dose: 100 mg Minoxidil (Minoxidil) 5 mg PO DAILY [facility] Last Admin: 09/18/17 09:07 Dose: 5 mg Nitroglycerin (Nitro-Bid 2% Oint) 1 ea TOP Q4 PRN PRN Reason: SBP >160 and DBP >100 Last Admin: 09/19/17 06:51 Dose: 1 ea Ondansetron HCl (Zofran Inj) 4 mg IVP Q6H PRN PRN Reason: Nausea/Vomiting Last Admin: 09/14/17 03:45 Dose: 4 mg Pantoprazole Sodium (Protonix Ec Tab) 40 mg PO 0600 [facility] Last Admin: 09/19/17 05:50 Dose: 40 mg Potassium Chloride (K-Dur 20 Meq Er Tab) 20 meq PO BID [facility] Last Admin: 09/18/17 17:28 Dose: 20 meq - Labs Labs: 09/18/17 08:01 09/19/17 05:50 PT 12.0 SECONDS (9.4-12.5) 09/13/17 18:10 INR 1.05 (0.93-1.08) 09/13/17 18:10 APTT 30.9 Seconds (25.1-36.5) 09/13/17 18:10 Assessment and Plan - Assessment and Plan (Free Text) Assessment: Chest and YFN pain/Distal aortic dissection (Type B) HBP RLL infiltrate on CXR Acute on chronic kidney disease Renal Stones Abnormal ECG Plan: As per Dr Harding, Vascular Surgery, Intensivists, Medical Residents. PO antihypertensives: Titrate as per Dr. Harding Tel bed When stable> IVD nuclear stress test Monitor: I/O, renal fx., labs, sats., BPs, etc.
[2017-09-19] MEDS: Potassium Chloride 20 mEq ER Tab PO SCH ×2 (10:08→17:11)
--- NOTE | 2017-09-19 22:38 | PN ---
DATE: 09/19/2017 SUBJECTIVE: This 62-year-old male was examined in CCU bed 7 in the presence of his nurse, Sanjuanita Hamlin - registered nurse, and family members. The patient had threatened to sign AMA, but after I discussed with the patient the need for continued hospital stay for regulation of antihypertensive medication and for Cardiology clearance prior to discharge, the patient was more accepting of his continued hospital stay. At present, the patient remains in CCU bed 7. He has had accelerated hypertension after having been admitted with a type B aortic dissection. This case was reviewed in detail yesterday with Dr. Nestor Christian from Interventional Radiology. He did review his films, felt that the patient has a thrombosed type B dissecting aneurysm, and is not needed any further endovascular intervention including stenting at this time. He does concur with the recommendation for a CTA in 6 months and then yearly, and of course, excellent control of blood pressure as outpatient. This has been repeatedly advised to the patient who hopefully will be compliant with this recommendation upon discharge. OBJECTIVE: VITAL SIGNS: At present, temperature 98.6, respirations 15, pulse 84 and blood pressure 139/79, with no pulse ox recorded. HEENT: Head: Normocephalic, atraumatic. Eyes: No icterus. Ears: Clear. Throat: Noninjected. NECK: Supple. HEART: Regular S1, S2. LUNGS: Clear. ABDOMEN: Obese. EXTREMITIES: No edema. SKIN: Without rash. NEUROLOGICAL: Intact. PSYCHOLOGICAL: Alert. VASCULAR: Legs warm to touch. LABORATORY DATA: White count 5400, hemoglobin 13.6, hematocrit 39.1, platelets 202,000. Sodium 139, K 3.9, chloride 103, bicarb 25, BUN 23, creatinine 1.1, random blood sugar 121, calcium 9.7. IMPRESSION AND PLAN: A 62-year-old male, admitted with a type B dissection of his aortic aneurysm with accelerated hypertension and obesity. He is awaiting stress testing with Dr. Beni Guo for further evaluation of abnormal EKG and high risk for atherosclerotic heart disease given all of the above. The patient continues on Zestril 10 mg p.o. b.i.d., Protonix 40 mg p.o. daily, Norvasc 10 mg p.o. daily, minoxidil 5 mg p.o. daily, Lopressor 100 mg p.o. b.i.d., Lasix 20 mg p.o. q. 12, potassium chloride 20 mEq p.o. b.i.d., and hydralazine 10 mg IV q.6h. p.r.n. accelerated hypertension. He is ordered to have a fasting lipid panel in the a.m. He continues on cautious cardiovascular monitoring and critical care, and has been cleared for medical followup by both Dr. Nestor Christian from Interventional radiology and Dr. Ronnie Ruiz, vascular surgeon. Greater than 35 minutes was spent in the care management, review of labs, orders and discussion at the bedside with this patient with nurse Sanjuanita Hamlin present. All questions were answered. Janet Harding MD MTDD
[2017-09-20] MEDS: Pantoprazole 40 mg EC Tab PO SCH (05:21)
[2017-09-20] MEDS ORDERED: Aminophylline 25 mg/ml Inj ONE (09:30)
[2017-09-20] MEDS: Potassium Chloride 20 mEq ER Tab PO SCH ×2 (09:30→17:16)
[2017-09-20 12:26] LABS: HDL CHOLESTEROL 29 mg/dL (29-60)
[2017-09-20 12:36] LABS: LDL CHOLESTEROL 149 mg/dL (0-129)
--- NOTE | 2017-09-20 12:57 | PN ---
DATE: 09/20/2017 SUBJECTIVE: The patient is seen lying in bed on telemetry, is currently comfortable. He denies any chest pain. His blood pressure control has improved. CURRENT MEDICATIONS: Remain Lasix 20 mg b.i.d., potassium 20 mEq b.i.d., metoprolol 100 mg b.i.d., minoxidil 5 mg daily, topical nitrates, Norvasc 10 mg daily, Protonix 40 mg daily, Zestril 10 mg b.i.d. OBJECTIVE: GENERAL: He is a middle-aged man, who appears comfortable at rest. VITAL SIGNS: Blood pressure is 140/76 with a pulse of 72 and sinus, respirations are 14. He is afebrile. HEENT: No JVD. CHEST: Few scattered rhonchi. HEART: PMI in normal position. No pathological murmurs or gallops noted. ABDOMEN: Soft, nontender, normoactive bowel sounds. EXTREMITIES: No edema. DIAGNOSTIC DATA: No blood work pending from this morning. IMPRESSION: 1. Status post type B aortic dissection, clinically stable. 2. Hypertension, clinically improved. 3. Rest of problems as noted. RECOMMENDATIONS: For cardiac evaluation, a pharmacologic stress test will be performed today. Further recommendations will be based upon those results. The need for strict control of hypertension as well as compliance with outpatient followup was strongly emphasized to the patient. We will follow along as needed. Sergio Millan MD
--- NOTE | 2017-09-20 20:15 | PN ---
DATE: 09/20/2017 CRITICAL CARE PROGRESS NOTE SUBJECTIVE: This 62-year-old male was examined in CCU bed 7, in the presence of his and family. He was being readied for completion of Lexiscan stress test under the direction of Dr. Beni Guo from Cardiology. At present, the patient is chest pain free and being treated for accelerated hypertension and recent admission for type B aortic dissection. The patient has been seen by Vascular Surgery, Interventional Radiology and has had his films reviewed by Dr. Nestor Jorge, vascular surgeon at [facility] in [place] and all physicians are in agreement for medical management of this patient at present. The patient denies any fever, chills, chest pain, shortness of breath, abdominal discomfort, or claudication. PHYSICAL EXAMINATION: GENERAL: Remains in a normal sinus rhythm, in the monitoring engineer. VITAL SIGNS: Temperature was 99, respirations 19, pulse 95, and blood pressure 135/80. HEENT: Head: Normocephalic, atraumatic. Eyes: No icterus. Ears: Clear. Throat: Noninjected. NECK: Supple. HEART: Regular S1, S2. LUNGS: Clear. ABDOMEN: Obese. EXTREMITIES: No edema. SKIN: Without rash. NEUROLOGICAL: Intact. PSYCHOLOGICAL: Alert. VASCULAR: Legs warm to touch. LABORATORY DATA: White count 5400, hemoglobin 13.6, hematocrit 39.1, platelets 202,000. Random blood sugar 103. Sodium 139, K 3.9, chloride 103, bicarb 25, BUN 23, creatinine 1.1, calcium level 9.7. IMPRESSION: A 62-year-old male status post a type B aortic dissection with recent accelerated hypertension, now improved; history of obesity; and patient is actively undergoing thallium stress testing at present. PLAN: For Cardiology to further evaluate this patient for medical clearance for discharge. At present, he will continue on K-Dur 20 mEq p.o. b.i.d., Lasix 20 mg p.o. b.i.d., Lopressor 100 mg p.o. b.i.d., minoxidil 5 mg p.o. daily, Norvasc 10 mg p.o. daily, Protonix 40 mg p.o. daily, Zestril 10 mg p.o. b.i.d., and Zofran 4 mg IV every 6 hours p.r.n. nausea or vomiting. He remains on a heart-healthy bland diet. As discussed with his nurse, Cece Tucker, registered nurse, the patient was scheduled for a lipid panel, which he refused earlier today, but will be rescheduled prior to lunch. Greater than 35 minutes was spent in the care management, review of labs, orders, and discussion with co-consultants and family members including at bedside. All questions were answered. Patient and family are both aware that he will need cautious outpatient monitoring by medical and cardiology followup and also will need a repeat CTA in 6 months or sooner if need be. Hopefully, they will be compliant with this recommendation. Janet Harding MD [facility]
--- NOTE | 2017-09-20 21:45 | CARD ---
APPROVED REPORT Protocol: LEXISCAN Test Type: Lexiscan Sestamibi Stress Test Attending Physician: Dr. Sergio Millan Referring Physician: Dr. Janet Harding Test Indications: Abnormal ECG Height:5 ft 5 in Weight:218lbs Medications: norvasc, lasix, apresoline, zestril, lopressor, minoxidil, nitro-bid, zofran, protonix, potassium Medical History: 62 year old male with a h/o htn and distal aortic dissection Target HR: 158 bpm Resting ECG: premature ventricular contractions Resting Heart Rate: 78 bpm Resting Blood Pressure: 144/86mmHg Submaximum (85%): 134 bpm PROCEDURE Pharmacologic stress testing was performed using 0.4mg per 5ml of regadenoson given intravenously over 7-10 seconds. POST EXERCISE Reason for Termination: Protocol completed Target HR: No Max HR: 78 bpm 65% of Maximum Predicted HR: 158 bpm Exercise duration: 00:32 min:sec, 0 Stage Exercise capacity: 1.0METs Max Blood Pressure: 144/86mmHg Blood Pressure response to exercise: normal resting BP - appropriate response Heart Rate response to exercise: appropriate Chest Pain: No, none Angina index: 0 Arrhythmia: Yes, ventricular premature beats-pairs ST Change: No, none Deviation: 0 mm INTERPRETATION Stress EKG Conclusion: Normal infusion phase of Lexiscan NST. Signed by Sergio Millan Electronically Approved: 09/20/2017 11:22:07 EXAM: Myocardial Perfusion REST/STRESS Stress Test Type: Pharmacologic Imaging Protocol Rest Spect myocardial perfusion imaging was performed in supine position 45 minutes following the injection of 10.3 mCi of Tc-99 Myoview. At peak stress, the patient was injected intravenously with 30.02mCi of Tc-99 tetrofosmin after an infusion time of 0 minutes and 10 seconds. Gated Stress Spect was performed 65 minutes after intravenous Tc-99 Myoview injection. The images were gated to evaluate regional wall motion and calculate ventricular ejection fraction.Images were reconstructed using backfilter projection method in short horizontal and verticle long axis. Spect slices were generated. LV Perfusion The quality of the study is good. The left ventricle is mildly enlarged in size with thickened myocardium. The right ventricle is unremarkable. The lung uptake is within normal limits. The distribution of tracer reveals normal uptake pattern throughout the LV myocardium on the stress study. The rest myocardial perfusion study shows no significant change. Wall Motion Wall motion study shows good contractility of the left ventricle. LVEF = 71%. Conclusion 1. Normal SPECT myocardial perfusion study. 2. Normal gated wall motion of the left ventricle.
[2017-09-21] MEDS: Pantoprazole 40 mg EC Tab PO SCH (05:01)
[2017-09-21] MEDS: Potassium Chloride 20 mEq ER Tab PO SCH (09:24)
[2017-09-21 12:21] VITALS: TEMP 98.4
[2017-09-21 13:46] VITALS: BP 148/82
[2017-09-21 13:48] VITALS: RESP 18
--- NOTE | 2017-09-21 14:27 | PN ---
DATE: 09/21/2017 SUBJECTIVE: The patient is seen lying in bed on telemetry. He is currently comfortable at the present time. He underwent a stress test yesterday, which showed no evidence of ischemia. CURRENT MEDICATIONS: Include Lasix 20 mg b.i.d., potassium supplement, Lipitor 40 mg daily, metoprolol 100 mg b.i.d., minoxidil 5 mg daily, topical nitrates, Norvasc 10 mg daily, Protonix 40 mg daily, Zestril 10 mg b.i.d. PHYSICAL EXAMINATION GENERAL: He is an overweight middle-aged man. VITAL SIGNS: His blood pressure is 138/84 with a pulse of 72, respirations are 14. He is afebrile. HEENT: No JVD. CHEST: Clear to auscultation and percussion. HEART: PMI displaced laterally and no pathological gallops noted. ABDOMEN: Soft, nontender with normoactive bowel sounds. EXTREMITIES: No edema. DIAGNOSTIC DATA: Stress test showed normal LV systolic function with an ejection fraction of 71%. IMPRESSION: 1. Recent type B aortic dissection, stable at present. 2. History of hypertension, clinically improved. 3. Obesity. RECOMMENDATIONS: His current medications can be continued. Zestril can be increased as needed for blood pressure control. Topical nitrates can be discontinued. From a cardiac standpoint, he is stable for discharge home. The need for risk factor control and his weight loss and sodium restriction were reviewed with him. We will be happy to see him in the future if needed. Sergio Millan MD [facility]
[2017-09-21 14:51] VITALS: PULSE 70
[2017-09-21 14:54] VITALS: O2SAT 94
--- NOTE | 2017-09-21 22:43 | DS ---
DATE OF EVALUATION: 09/21/2017 FINAL DIAGNOSES: Accelerated hypertension, improved; acute type B aortic dissection, stable; obesity; hyperlipidemia. CT angio dissection protocol on date of admission showed a Lokesh type B aortic dissection extending from the patient's aortic arch just distal to the left subclavian artery origin and involving the entire aorta. The aortic dissection is also extending to the right common iliac artery as well as the internal iliac and appears to terminate near the right superficial femoral artery origin. 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 Nestor Christian from Interventional Radiology as well. The patient's myocardial stress test at the time of discharge showed a good quality study. The left ventricle was mildly enlarged with a left ventricular ejection fraction 71%. Wall motion study showed good contractility, a normal SPECT myocardial perfusion study, and normal gated motion of the left ventricle. A 2-D echocardiogram was reviewed by Dr. Beni Guo from Cardiology. It showed left ventricle normal in size, mild left ventricular hypertrophy, normal left ventricular function with mild mitral regurgitation and mild tricuspid regurgitation. DISCHARGE MEDICATIONS: Include minoxidil 5 mg p.o. daily, Lopressor 100 mg p.o. b.i.d., Zestril 10 mg p.o. b.i.d., Lasix 20 mg p.o. b.i.d., Norvasc 10 mg p.o. daily, K-Dur 20 mEq p.o. b.i.d., Lipitor 40 mg p.o. daily, and Ecotrin 81 mg p.o. daily. Consultants on this case included Dr. Beni Guo and Dr. Sergio Millan, Cardiology; Dr. Genaro Polalrd and Dr. Andrzej Dorado, slat grader; Dr. Nestor Christian, Interventional Radiology; Dr. Ruiz, vascular surgeon. DISPOSITION: Home. Follow up in my office in 1 week. Follow up with Dr. Beni Guo, Cardiology. The patient was advised he will need CT angiography in 6 months or sooner if clinically warranted. SUMMARY: This is a 62-year-old male who was admitted to [facility] with clinical and radiographic evidence of a type B aortic dissection. He was noted to have markedly elevated blood pressure that required parenteral antihypertensive therapy and further evaluation by CT angiography, echocardiography, chest x-rays, and myocardial stress testing. At the time of discharge, the patient was ambulatory, afebrile with vital signs showing temperature 98.4, respirations 20, pulse 64, blood pressure 144/88, and pulse ox 94% room air. master ship showed normal sinus rhythm. Laboratory showed white count 5400, hemoglobin 13.6, hematocrit 39.1, platelets 202,000. PT/INR 1.05, PTT 30.9. Random blood sugar 77. Sodium 139, K 3.9, chloride 103, bicarb 25, BUN 23, creatinine 1.1. Calcium 9.7, normal. The patient's bilirubin 1.6, AST 54, ALT 58, and alkaline phosphatase 67. Cholesterol 199, LDL 149, HDL 29, triglycerides 129. T4 normal, 6.7. TSH normal, 1.18. Troponin less than 0.01. Hemoglobin A1c 5.7, normal. The patient is discharged to home. This case has been reviewed in detail with his , Nini Aguilar. Medication was reviewed with the patient and in detail. I have recommended an office followup in 1 week and have advised for any change in signs and symptoms to present directly to the closest emergency room. Greater than 35 minutes was spent in the care and discharge management of this patient today. Instructions were reviewed with the patient and nurse, Dasia Jordan. All questions were answered Janet Harding MD [facility]
== END 2017-09-21 15:18 | disposition home or self-care (01) | DRG 304 ==
LOC: ED 18:05 → ERH 21:46 → CCU 22:40 → 2RNO 09-20 18:46
PROVIDERS: ADMIT Internal Medicine; ATTEND Internal Medicine
DX: I16.1 Hypertensive emergency (principal); I71.00 Dissection of unspecified site of aorta; I08.3 Combined rheumatic disorders of mitral, aortic and tricuspid valves; E66.9 Obesity, unspecified; I12.9 Hypertensive chronic kidney disease with stage 1 through stage 4 chronic kidney disease, or unspecified chronic kidney disease; N18.9 Chronic kidney disease, unspecified; E78.5 Hyperlipidemia, unspecified; I71.9 Aortic aneurysm of unspecified site, without rupture; N20.0 Calculus of kidney; R09.02 Hypoxemia; Z79.899 Other long term (current) drug therapy; Z82.49 Family history of ischemic heart disease and other diseases of the circulatory system; Z87.440 Personal history of urinary (tract) infections; Z87.442 Personal history of urinary calculi; Z91.14 Patient's other noncompliance with medication regimen; R40.2412 Glasgow coma scale score 13-15, at arrival to emergency department; Z68.36 Body mass index [BMI] 36.0-36.9, adult